=== PATIENT | female | born 1930 | race Caucasian/White ===

== ENCOUNTER 2016-10-03 12:36 | Observation (INO) | payer OTHER, MEDICARE ==
[~2016-10-03] VITALS: Ht 154.9 cm; Wt 59.0 kg
[~2016-10-03 12:36] MED LIST: ALDACTONE25 MG PO; ELIQUIS2.5 M1 PO; METOPROLOL TART25 M1 PO; NIFEDIPINE ER60 M2 PO
--- NOTE | 2016-10-03 12:44 | NUR ---
85 Y/O FEMALE C/O MID STERNAL / L SIDED CHEST PAIN SINCE YESTERDAY; STATES SHE DOES NOT FEEL THE PAIN BREATHING NORMALLY HOWEVER FEELS BAD IF SHE "TAKES A DEEP BREATH". DENIES SOB. DENIES N/V/D. DENIES DIAPHORESIS. RECENTLY NOTICED COUGH WELL WITH WHITE PHLEGM. EKG AND BLOOD DRAW IN PROGRESS
[2016-10-03 13:00] LABS: ABSOLUTE BASOPHIL COUNT 0.2 /CUMM (0.0-0.2); ABSOLUTE EOSINOPHIL COUNT 0.1 /CUMM (0.0-0.7); ABSOLUTE GRANULOCYTE CT 8.6 /CUMM (1.4-6.5); ABSOLUTE LYMPH COUNT 1.8 /CUMM (1.2-3.4); ABSOLUTE MONOCYTE COUNT 0.8 /CUMM (0.10-0.60); BASOPHIL % 1.3 % (0.0-2.0); EOSINOPHIL % 0.7 % (0-5); HEMATOCRIT 31.5 % (37-47); MEAN CORPUSCULAR HGB 31.2 PG (27.0-31.0); MEAN CORPUSCULAR HGB CONC 33.8 G/DL (33.0-37.0); MEAN CORPUSCULAR VOLUME 92.4 FL (81.0-99.0); MEAN PLATELET VOLUME 8.9 FL (7.4-10.4); PLATELET COUNT 259 /CUMM (130-400); RBC DISTRIBUTION WIDTH 14.9 % (11.5-14.5); RED BLOOD CELL CT 3.41 /CUMM (4.20-5.40); WHITE BLOOD CELL COUNT 11.5 /CUMM (4.8-10.8)
--- NOTE | 2016-10-03 13:08 | ED CARDIAC/CP/PALPITATIONS ---
History of Present Illness General Chief Complaint: Chest Pain Stated Complaint: PER DAUGHTER CP INTO L ARM WHEN TAKING DEEP BREATH Source: patient, family, old records Exam Limitations: no limitations Vital Signs & Intake/Output Vital Signs & Intake/Output Vital Signs Date Time Temp Pulse Resp B/P B/P Pulse O2 O2 Flow FiO2 Mean Ox Delivery Rate 10/03 1638 96.9 77 15 151/74 99 Room Air Room Air 10/03 1441 69 15 116/56 95 Room Air Room Air 10/03 1430 Room Air Room Air 10/03 1242 98.2 84 16 124/64 95 Room Air Allergies Coded Allergies: Sulfa (Sulfonamide Antibiotics) (Severe, SWELLING 10/03/16) diphenhydramine (From BENADRYL) (Severe, MAKES CRAZY 10/03/16) hydromorphone (From DILAUDID) (Severe, CONFUSSION 10/03/16) morphine (Severe, SYNCOPE 10/03/16) oxycodone (From PERCOCET) (Severe, SWELLING 10/03/16) JOSE Inhibitors (UNKNOWN 10/03/16) Uncoded Allergies: ANGIOTENSIN-2 (Severe, SWELLING 01/09/16) Reconcile Medications Apixaban (Eliquis) 2.5 MG TABLET 1 TAB PO BID BLOOD THINNER (Reported) Aspirin (Aspirin*) 81 MG TAB.CHEW 1 TAB PO DAILY HEART HEALTH (Reported) Docusate Sodium (Stool Softener) 250 MG CAPSULE 1 TAB PO BID STOOL SOFTENER ( Reported) Metoprolol Tartrate 25 MG TABLET 1 TAB PO BID HEART (Reported) Nifedipine (Nifedipine ER) 60 MG TAB.ER.24 1 TAB PO DAILY HEART (Reported) Sotalol HCl (Sotalol) 80 MG TABLET 1 TAB PO BID HEART (Reported) Spironolactone (Aldactone) 25 MG TABLET 1 TAB PO DAILY WATER RETENTION ( Reported) Temazepam 15 MG CAPSULE 1 CAP PO QPM SLEEP (Reported) Triage Note: 85 Y/O FEMALE C/O MID STERNAL / L SIDED CHEST PAIN SINCE YESTERDAY; STATES SHE DOES NOT FEEL THE PAIN BREATHING NORMALLY HOWEVER FEELS BAD IF SHE "TAKES A DEEP BREATH". DENIES SOB. DENIES N/V/D. DENIES DIAPHORESIS. RECENTLY NOTICED COUGH WELL WITH WHITE PHLEGM. EKG AND BLOOD DRAW IN PROGRESS Triage Nurses Notes Reviewed? 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 Symptoms came out while at rest. No history of similar episodes in the past she reports a cough productive of white phlegm for the past several months. No hemoptysis she is on Elliquis which she has been compliant with. She denies any abdominal pain nausea vomiting diarrhea symptoms are worse with deep inspiration cough sneezing laughing and exertion. (DEDE BOWDEN) Past History Travel History Traveled to [place] past 21 day No Medical History Any Pertinent Medical History? 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 No (DEDE BOWDEN) Review of Systems Review of Systems Constitutional: Reports: see HPI. All Other Systems: Reviewed and Negative Comments Review of systems: See HPI, All other systems negative. Constitutional, no chills no fever, no malaise HEENT: No visual changes no sore throat no congestion, no ear pain Cardiovascular: chest pain , no palpitation Skin: no rashes, no change in skin Respiratory: dyspnea no cough no sputum no hemoptysis GI: No nausea no vomiting, no diarrhea, no bloating/constipation : No dysuria No hematuria, no frequency Muscle skeletal: No joint pain, no back pain, no neck pain, Neurologic: No numbness no headache Psych: No stress Heme/endocrine: No bruising Immunology: No lymphadenopathy (DEDE BOWDEN) Physical Exam Physical Exam General Appearance: well developed/nourished, alert, awake Cardiovascular: regular rate/rhythm Comments: Well-developed well-nourished person in no acute distress HEENT: Normal EENT exam; PERRL, EOMI, HEAD is atraumatic. moist mucous membranes. Neck: Supple, no lymphadenopathy, normal range of motion Back: Nontender, no CVA tenderness. Full range of motion Cardiovascular: Regular rate and rhythms murmurs rubs or gallops, normal JVP Respiratory: Chest tender.There were no bony deformities, no asymmetry. No respiratory distress. Patient speaking in full complete sentences. Breath sounds clear to auscultation bilaterally: NO W/R/R Abdomen: Soft, nontender Extremity: No edema, full range of motion of extremities Neuro: Alert oriented x3, motor sensory normal,There were no obvious focal neurologic abnormalities. Skin: No appreciable rash on exposed skin, skin is warm and dry. Psych: Mood and affect is normal, memory and judgment is normal. Core Measures ACS in differential dx? Yes Severe Sepsis Present: No Septic Shock Present: No (ALICIA WOLF,DEDE) Progress Differential Diagnosis: AMI, atrial fibrillation, cholecystitis, CHF/pulm edema, costochondritis, hyperkalemia, musculoskeletal pain, myocarditis, pancreatitis, pericarditis, pneumothorax, pulmonary embolism, unstable angina Plan of Care: Orders Procedure Date/time Status CBC WITHOUT DIFFERENTIAL 10/04 0600 Active BASIC ELECTROLYTES PLUS BUN&CR 10/04 0600 Active TROPONIN LEVEL 10/04 0100 Active EKG 10/04 0100 Active Regular Diet 10/03 D Active TROPONIN LEVEL 10/03 1900 Active EKG 10/03 1900 Active ECHOCARDIOGRAM 10/03 1625 Active TROPONIN LEVEL 10/03 1600 Complete EKG 10/03 1600 Active Pathway - chart 10/03 1540 Active Patient Data 10/03 1540 Active Patient Data 10/03 1531 Active OXYGEN SETUP (GEN) 10/03 1528 Active Saline Lock 10/[address] in observation 10/03 1528 Active Vital Signs 10/03 1528 Active Activity/Ambulation 10/03 1528 Active Code Status 10/03 1528 Active Intake & Output 10/03 1429 Active Add-on Test (ER Only) 10/03 1323 Active Telemetry/Customer Service Analyst 10/03 1323 Active PARTIAL THROMBOPLASTIN TIME 10/03 1252 Complete PROTHROMBIN TIME 10/03 1252 Complete D-DIMER 10/03 1252 Complete TROPONIN LEVEL 10/03 1238 Complete COMPREHENSIVE METABOLIC PANEL 10/03 1238 Complete CBC WITHOUT DIFFERENTIAL 10/03 1238 Complete EKG 10/03 1238 Active Pathway - chart 10/03 UNK Active House Staff 10/03 UNK Active VTE Mechanical Prophylaxis 10/03 UNK Active Telemetry/Customer Service Analyst 10/03 K Active CASE MANAGEMENT CONSULT 10/03 UNK Active Current Medications Sig/Amaury Start time Last Medication Dose Stop Time Status Admin Nifedipine 60 MG DAILY 10/04 1000 AC (Procardia XL) Spironolactone 25 MG DAILY 10/04 1000 AC (Aldactone) Apixaban 2.5 MG BID 10/03 2200 AC (Eliquis) Docusate Sodium 200 MG BID 10/03 220 AC (Colace) Sotalol HCl 80 MG BID 10/03 2200 AC (Betapace) Temazepam 15 MG QPM 10/03 220 AC (Restoril) Aspirin 81 MG DAILY 10/03 1626 AC 10/03 (Aspirin) 1657 Acetaminophen 650 MG Q6P PRN 10/03 1545 AC (Tylenol) Acetaminophen 1,000 MG Q6P PRN 10/03 1545 AC (Ofirmev) Laboratory Tests 10/03/16 1551: Troponin I < 0.01 10/03/16 1252: Anion Gap 12, Estimated GFR 60, BUN/Creatinine Ratio 20.0, Glucose 138 H, Calcium 9.4, Total Bilirubin 0.5, AST 20, ALT 21, Alkaline Phosphatase 75, Troponin I < 0.01, Total Protein 6.8, Albumin 3.9, Globulin 2.9, Albumin/ Globulin Ratio 1.3, PT 13.5 H, INR 1.29 H, APTT 33, D-Dimer High Sensitivty 298 H, CBC w Diff NO MAN DIFF REQ, RBC 3.41 L, MCV 92.4, MCH 31.2 H, RDW 14.9 H, MPV 8.9, Gran % 75.0, Lymphocytes % 15.7 L, Monocytes % 7.3, Eosinophils % 0.7, Basophils % 1.3, Absolute Granulocytes 8.6 H, Absolute Lymphocytes 1.8, Absolute Monocytes 0.8 H, Absolute Eosinophils 0.1, Absolute Basophils 0.2, PUBS MCHC 33.8 Labs ordered old records reviewed CAT scan ordered case discussed with Dr. CARMICHAEL Discussed with patient and her daughter the fall for results incidental findings. Discussed with Dr. 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 RYNE ALEJANDRO IN OBS (ALICIA WOLF,DEDE) Diagnostic Imaging: Viewed by Me: CT Scan. Discussed w/RAD: CT Scan. Radiology Impression: PATIENT: GODWIN GOMEZ PRESENT AGE: 85 PATIENT ACCOUNT NO: [id number] : 31 LOCATION: [facility] ORDERING PHYSICIAN: DEDE WOLF SERVICE DATE: 10/03/166344 EXAM TYPE: CAT - CTA CHEST-PULMONARY EMBOLISM EXAMINATION: CT ANGIOGRAM OF THE CHEST WITH AND WITHOUT CONTRAST (CT PULMONARY ANGIOGRAM FOR PE) CLINICAL INFORMATION: Reason for Study:
Presumptive Dx: RO PE
Signs Symptoms: PLEURITIC CP
COMPARISON: Chest CT 08/03/2007 TECHNIQUE: Prior to contrast administration, noncontrast localization images were obtained. Subsequently, multidetector volumetric imaging was performed from the thoracic inlet to below the diaphragms following the administration of 94 mL Optiray 350 intravenous contrast. No contrast reaction reported. Sagittal, coronal, and MIP oblique sagittal reformatted images were obtained on the CT workstation, uploaded to PACS, and reviewed. Total exam dose-length product 222 mGy-cm. FINDINGS: QUALITY OF STUDY/ CONTRAST BOLUS: Satisfactory PULMONARY ARTERIES: No central or segmental pulmonary emboli. THORACIC AORTA: Mild to moderate atherosclerotic changes without aneurysm or dissection. LUNG: There is a discoid focus of probable atelectasis in the superior segment of the right lower lobe posterior medially new from the 2007 exam. Similar less prominent peripheral foci are identified along the minor and major fissures centrally on the right. Mild underlying COPD changes are suspected with somewhat of a mosaic attenuation pattern suggesting underlying small airway disease. No suspicious appearing pulmonary nodules are seen. PLEURA: No pleural effusion or pneumothorax. MEDIASTINUM: There is no mediastinal or hilar adenopathy. The heart contains dual pacer leads on the right with a left-sided generator. There are TAVR changes as well. CHEST WALL/ AXILLA: Unremarkable. OSSEOUS STRUCTURES: There is a severe L1 compression deformity which is likely present on previous portable chest x-ray 01/09/2016, however is new compared with the previous CT from 2007. Otherwise no focal osseous lesions are seen. UPPER ABDOMEN: Unremarkable. IMPRESSION: 1. No evidence of pulmonary emboli. 2. 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 3. Findings most consistent with subsegmental atelectasis most notably involving the superior segment of the left lower lobe. 4. T1 compression deformity is likely stable since 01/09/2016. Otherwise age indeterminate. VTE: Negative for pulmonary embolism. DICTATED BY: FELISA GARCIA MD DATE/TIME DICTATED:10/03/161432 HOSPITALIST PROGRAM DIRECTOR:QUEENIE DATE/TIME TRANSCRIBED:10/03/161432 CONFIDENTIAL, DO NOT COPY WITHOUT APPROPRIATE AUTHORIZATION. <Electronically signed in Other Vendor System> SIGNED BY: FELISA GARCIA MD 10/03/16 1450 Initial ED EKG: PACED AT 70,NO ACUTE ST SEG CHANGES NORMAL AXIS Prior EKG: unchanged Rhythm Strip: PACED RHYTHM (DEDE BOWDEN) Departure Departure Time of Disposition: 1529 Disposition: STILL A PATIENT Condition: Stable Clinical Impression Primary Impression: Chest pain Referrals: DELFINA FORDE MD (PCP/Family) Departure Forms: Customer Survey General Discharge Information Observation Note Spoke With: THOMAS MICHELE MD [facility] Patient In: Non-ED OBS Care Area Rationale for Observation: My rational for observation is as follows patient has extensive cardiac history given presentation of symptoms continuous telemetry monitoring and repeat troponins trend labs cardiology consult premature discharge would BE medically harmful. (DEDE BOWDEN) PA/INFORMATION SECURITY ANALYST Co-Sign Statement Statement: ED Attending supervision documentation- x I saw and evaluated the patient. I have also reviewed all the pertinent lab results and diagnostic results. I agree with the findings and the plan of care as documented in the PA's/INFORMATION SECURITY ANALYST's documentation. [] I have reviewed the ED Record and agree with the PA's/INFORMATION SECURITY ANALYST's documentation. [] Additions or exceptions (if any) to the PAs/INFORMATION SECURITY ANALYST's note and plan are summarized below: [] (AMOL GARVEY,BETH) Critical Care Note Critical Care Note Critical Care Time: non-applicable (DEDE BOWDEN)
[2016-10-03 13:40] LABS: PT 13.5 SEC (9.4-12.5); PTT 33 SEC (25-37)
--- NOTE | 2016-10-03 14:15 | NUR ---
IV EST TO R FOREARM FOR CTA.
[2016-10-03] MEDS ORDERED: SOTALOL80 M1 PO (14:42)
[2016-10-03] MEDS ORDERED: STOOL SOFTENER250 M1 PO (14:43)
[2016-10-03] MEDS ORDERED: TEMAZEPAM15 M1 PO (14:43)
[2016-10-03] MEDS ORDERED: ASPIRIN81 M4 PO (14:44)
--- NOTE | 2016-10-03 14:44 | NUR ---
PT RESTING ON STRETCHER, NO ACUTE DISTRESS NOTED. INFORMED WAITING FOR CAT SCAN RESULTS TO COME BACK. WILL CONTINUE TO MONITOR
--- NOTE | 2016-10-03 14:50 | CT SCAN REPORT ---
EXAMINATION: CT ANGIOGRAM OF THE CHEST WITH AND WITHOUT CONTRAST (CT PULMONARY ANGIOGRAM FOR PE) CLINICAL INFORMATION: Reason for Study:
Presumptive Dx: RO PE
Signs Symptoms: PLEURITIC CP
COMPARISON: Chest CT 08/03/2007 TECHNIQUE: Prior to contrast administration, noncontrast localization images were obtained. Subsequently, multidetector volumetric imaging was performed from the thoracic inlet to below the diaphragms following the administration of 94 mL Optiray 350 intravenous contrast. No contrast reaction reported. Sagittal, coronal, and MIP oblique sagittal reformatted images were obtained on the CT workstation, uploaded to PACS, and reviewed. Total exam dose-length product 222 mGy-cm. FINDINGS: QUALITY OF STUDY/CONTRAST BOLUS: Satisfactory PULMONARY ARTERIES: No central or segmental pulmonary emboli. THORACIC AORTA: Mild to moderate atherosclerotic changes without aneurysm or dissection. LUNG: There is a discoid focus of probable atelectasis in the superior segment of the right lower lobe posterior medially new from the 2007 exam. Similar less prominent peripheral foci are identified along the minor and major fissures centrally on the right. Mild underlying COPD changes are suspected with somewhat of a mosaic attenuation pattern suggesting underlying small airway disease. No suspicious appearing pulmonary nodules are seen. PLEURA: No pleural effusion or pneumothorax. MEDIASTINUM: There is no mediastinal or hilar adenopathy. The heart contains dual pacer leads on the right with a left-sided generator. There are TAVR changes as well. CHEST WALL/AXILLA: Unremarkable. OSSEOUS STRUCTURES: There is a severe L1 compression deformity which is likely present on previous portable chest x-ray 01/09/2016, however is new compared with the previous CT from 2007. Otherwise no focal osseous lesions are seen. UPPER ABDOMEN: Unremarkable. IMPRESSION: 1. No evidence of pulmonary emboli. 2. 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 3. Findings most consistent with subsegmental atelectasis most notably involving the superior segment of the left lower lobe. 4. T1 compression deformity is likely stable since 01/09/2016. Otherwise age indeterminate. VTE: Negative for pulmonary embolism.
--- NOTE | 2016-10-03 15:37 | History & Physical ---
KIMBERLY FREED 10/03/16 1537: General Information and HPI History of Present Illness: Ms. 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 Her symptoms was associated with dizziness and chills. Patient also complains of a persistent cough since 05/2016 with white sputum production. She denies fever, nausea, vomiting, headache, palpitations, SOB or any previous episodes of CP. Patient also complains of hard stool, she takes a GI cocktail (prune juice, butter, +/-miralax) to soften stool. Patient states her skiff operator is Dr. Bejarano and PCP Dr. Braulio Asencio. ED vitals:BP 124/64 HR 84 O295 on RA ED labs: wbc 11.5, hgb 10.6, HCT 31.5, Na 133, Gluc 138, D-dimer 298, Trop neg. Allergies/Medications Allergies: Coded Allergies: Sulfa (Sulfonamide Antibiotics) (Severe, SWELLING 10/03/16) diphenhydramine (From BENADRYL) (Severe, MAKES CRAZY 10/03/16) hydromorphone (From DILAUDID) (Severe, CONFUSSION 10/03/16) morphine (Severe, SYNCOPE 10/03/16) oxycodone (From PERCOCET) (Severe, SWELLING 10/03/16) JOSE Inhibitors (UNKNOWN 10/03/16) Uncoded Allergies: ANGIOTENSIN-2 (Severe, SWELLING 01/09/16) Home Med list Apixaban (Eliquis) 2.5 MG TABLET 1 TAB PO BID BLOOD THINNER (Reported) Aspirin (Aspirin*) 81 MG TAB.CHEW 1 TAB PO DAILY HEART HEALTH (Reported) Docusate Sodium (Stool Softener) 250 MG CAPSULE 1 TAB PO BID STOOL SOFTENER ( Reported) Metoprolol Tartrate 25 MG TABLET 1 TAB PO BID HEART (Reported) Nifedipine (Nifedipine ER) 60 MG TAB.ER.24 1 TAB PO DAILY HEART (Reported) Sotalol HCl (Sotalol) 80 MG TABLET 1 TAB PO BID HEART (Reported) Spironolactone (Aldactone) 25 MG TABLET 1 TAB PO DAILY WATER RETENTION ( Reported) Temazepam 15 MG CAPSULE 1 CAP PO QPM SLEEP (Reported) Past History Travel History Traveled to [place] past 21 day No Medical History Neurological: NONE EENT: NONE Cardiovascular: AFIB, hypertension, pacemaker sleep apnea AORTIC VALVE REPLACEMENT Respiratory: NONE Gastrointestinal: NONE Hepatic: NONE Renal: NONE Musculoskeletal: NONE Psychiatric: NONE Endocrine: NONE Blood Disorders: NONE Cancer(s): NONE ADJUNCT INSTRUCTOR/Reproductive: NONE Surgical History Surgical History: appendectomy, hysterectomy, avr, pacemaker, Diverticular surgery (08/2016), Femoral screw (2015), Back surgery Past Family/Social History Psychosocial History ETOH Use: denies use Illicit Drug Use: denies illicit drug use Review of Systems Review of Systems Constitutional: Reports: see HPI. Exam & Diagnostic Data Last 24 Hrs of Vital Signs/I&O Vital Signs Date Time Temp Pulse Resp B/P B/P Pulse O2 O2 Flow FiO2 Mean Ox Delivery Rate 10/04 0000 96 Nasal 2.0L Cannula 10/03 2200 98.3 72 20 126/60 97 Room Air 10/03 2000 97 Room Air 10/03 1857 97.4 69 15 141/63 96 Room Air Room Air 10/03 1638 96.9 77 15 151/74 99 Room Air Room Air 10/03 1441 69 15 116/56 95 Room Air Room Air 10/03 1430 Room Air Room Air 10/03 1242 98.2 84 16 124/64 95 Room Air Intake & Output 10/04 0800 10/04 0000 10/03 1600 Intake Total 200 260 0 Output Total 400 400 Balance -200 -140 0 Intake, Oral 200 260 0 Number 0 Bowel Movements Output, Urine 400 400 Patient 130 lb 130 lb Weight Weight Reported by Patient Measurement Method Physical Exam General Appearance Alert, Oriented X3, Cooperative, No Acute Distress HEENT Atraumatic, PERRLA Neck Supple, No JVD Cardiovascular Normal S1, Normal S2, Left side chest pain on palpation Lungs Clear to Auscultation Abdomen Normal Bowel Sounds, Soft, Mild tenderness on palpation at hysterectomy incision site Extremities No Cyanosis, No Edema Last 24 Hrs of Labs/Luis Manuel: Laboratory Tests 10/04/16 0130: Troponin I < 0.01 10/03/16 1848: Troponin I < 0.01 10/03/16 1551: Troponin I < 0.01 10/03/16 1252: Anion Gap 12, Estimated GFR 60, BUN/Creatinine Ratio 20.0, Glucose 138 H, Calcium 9.4, Total Bilirubin 0.5, AST 20, ALT 21, Alkaline Phosphatase 75, Troponin I < 0.01, Total Protein 6.8, Albumin 3.9, Globulin 2.9, Albumin/ Globulin Ratio 1.3, PT 13.5 H, INR 1.29 H, APTT 33, D-Dimer High Sensitivty 298 H, CBC w Diff NO MAN DIFF REQ, RBC 3.41 L, MCV 92.4, MCH 31.2 H, RDW 14.9 H, MPV 8.9, Gran % 75.0, Lymphocytes % 15.7 L, Monocytes % 7.3, Eosinophils % 0.7, Basophils % 1.3, Absolute Granulocytes 8.6 H, Absolute Lymphocytes 1.8, Absolute Monocytes 0.8 H, Absolute Eosinophils 0.1, Absolute Basophils 0.2, PUBS MCHC 33.8 Diagnostic Data EKG Results Atrial paced complexes, ICVD, HR 79 Other Results CTA CHEST10/03/16-1335 IMPRESSION: 1. No evidence of pulmonary emboli. 2. 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 3. Findings most consistent with subsegmental atelectasis most notably involving the superior segment of the left lower lobe. 4. T1 compression deformity is likely stable since 01/09/2016. Otherwise age indeterminate. VTE: Negative for pulmonary embolism. Assessment/Plan Assessment: A: Ms. 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 Her symptoms was associated with dizziness and chills. Patient also complains of a persistent cough since 05/2016 with white sputum production. She denies fever, nausea, vomiting, headache, palpitations, SOB or any previous episodes of CP. P: 1. Chest pain musculoskeletal on presentation * 24h OBS * Serial TROP/ECG to rule out ACS * Dr. Bejarano consult 2. A-fib * Start home meds Eliquis 2.5mg BID, sotalol 80mg BID 3. HTN/HLD * Start home meds Nifedipine 90mg ER, ASA 81, Spirinolactone 25mg 4. CHF * Start home meds DVT prophylaxis-Eliquis FULL CODE As Ranked By This Provider Problem List: 1. Chest pain Core Measures/Miscellaneous Acute Coronary Syndrome ACS Diagnosis: No Cerebrovascular Accident CVA/TIA Diagnosis: No Congestive Heart Failure CHF Diagnosis: No VTE (View Protocol) VTE Risk Factors: Age > 40 No Mech VTE prophylaxis d/t: No contraindications No VTE Pharm Prophylaxis d/t: No contraindications VTE Diagnosis: No VTE Type: NONE VTE Confirmed by (Test): NONE Sepsis (View Protocol) Severe Sepsis Present: No Septic Shock Septic Shock Present: No Miscellaneous Documentation Attending Case Discussed With: THOMAS MICHELE MD Primary Care Physician: BRAULIO ASENCIO MD Patient sees these Specialists Jake Bejarano MD Level of Patient Care: Telemetry YANG VALIENTE 10/03/16 1831: Resident Review Statement Resident Statement: examined this patient, discussed with commander internal affairs, agreed with commander internal affairs Other Findings: Patient is a 85-year-old woman with past medical history significant for atrial fibrillation on elliquis, aortic valve replacement in May 2015 complicated with pericardial effusion, history of hypertension, history of heart failure with reduced ejection fraction, history of primary parathyroidism, history of internal hemorrhoids, recently had a surgery of Meckel's diverticulum in August 2016 presented to the ED for evaluation of constant chest discomfort at rest. Patient lives in [place], she has been staying with her daughter since August 2016 after Meckel's diverticulum surgery. The chest discomfort started at rest while she was she was watching television, it was sharp in character 8/10 in severity constant, aggravated with deep breaths without any alleviating factors. The chest discomfort was not associated with any shortness of breath palpitations denies any nausea vomiting or any sweating. Reported chills without any fever. Patient has been having this productive cough since May 2016, denied any worsening she was told by her primary care physician that cough could be seasonal. As mentioned above patient had Meckel's diverticulum surgery in August 2016, tolerated the procedure well, still reports some constipation, without any abdominal discomfort. Vitals on admission: Temperature 98.2, pulse 84, respiratory rate 16, blood pressure 124/664 on room air On examination General Appearance: Alert and oriented 3 Head: atraumatic, normal appearance Eyes:Bilateral: normal appearance, PERRL, EOMI. Ears, Nose, Throat: normal pharynx, normal ENT inspection, hearing grossly normal Lung examination: Lungs clear to was collision bilaterally Cardiovascular: Regular rate and rhythm, chest pain reproducible on palpation Gastrointestinal: normal bowel sounds, soft, non-tender, no organomegaly Back: normal inspection, normal range of motion, no vertebral tenderness Extremities: normal inspection, normal capillary refill, normal range of motion, no edema Neuro examination grossly intact . Pertinent labs on admission slight leukocytosis 11 with H&H low at 10.6/31.5 hyponatremia 133 elevated d-dimer 298 CTA negative for pulmonary embolism Assessment and plan: Patient is a 85-year-old woman with past medical history significant for atrial fibrillation on elliquis, aortic valve replacement in May 2015 complicated with pericardial effusion, history of hypertension, history of heart failure with reduced ejection fraction, history of primary parathyroidism, history of internal hemorrhoids, recently had a surgery of Meckel's diverticulum in August 2016 presented to the ED for evaluation of constant chest discomfort at rest. Problem list: Atypical chest discomfort(musculoskeletal)-less likely ACS History of hypertension hyperlipidemia History of CHF plan: Atypical chest discomfort(musculoskeletal)-less likely ACS * Will keep the patient in observation for 24 hours * 2 sets of troponin are negative without any STT changes, less likely the chest pain is cardiac in nature(reproducible as well, looks like musculoskeletal ) * We will observe the patient for any arrhythmias. * Cardiovascular consult Dr. Bejarano has been obtained as per recommendations we'll discharge the patient in the morning if remains pain-free without any evidence of arrhythmias. History of A. fib * On any home dose of Elliquis. History of hypertension hyperlipidemia * Continue medications. History of CHF * Continue medications DVT prophylaxis with elliquis' Mild to moderate pain controlled with Tylenol Patient is full code THOMAS MICHELE MD 10/04/16 1010: Attending MD Review Statement Attending Statement Attending MD Statement: examined this patient, discuss w/resident/PA/SENIOR INTERNAL AUDITOR, agreed w/resident/PA/SENIOR INTERNAL AUDITOR, reviewed EMR data (avail) Attending Assessment/Plan: 85F PMH AVR with post-operative pericardial effusion s/p pericardiocentesis x3 1 year ago, Meckel's diverticulum 2 months ago s/p resection, atrial fibrillation s/p PPM, HTN presenting with acute onset of left sided chest pain, non-radiating , occured at rest, not worse with exertion, associated with dyspnea. No prior episodes of chest pain, no recent stress or exertion. EKG shows atrially paced rhythm with no ST-T changes, troponin negative. Plan - Observation in telemetry - Serial troponin and EKG - Echocardiogram - Cardiology consult - Continue home medications - DVT PPx
--- NOTE | 2016-10-03 15:52 | NUR ---
2ND TROP AND EKG SENT
--- NOTE | 2016-10-03 16:31 | PN- Student ---
Subjective Subjective: CC: chest pain HPI: Source of of information is patient. Mrs. Hernandez is an 85 year old female with PMH of CHF, HTN, Afib, Stage 3 CKD, internal hemorrhoids and TAVR (bovine valve) in 2005 with pacemaker placement, and pericardial effusion c/o chest pain. The pain began yesterday. It is substernal and radiates to the left sternal border. She describes the pain as a sharp and occurs on inspiration. She rates the pain an 8/10. It has remained consistent with inspiration since yesterday. She also has a cough that has come and go since 05/2016. It is productive of white phlegm. She has been experiencing some dizziness and chills. Patient denies fever, nausea, sweats, and headaches. She has not had any previous episodes of chest pain. PMH: HTN CHF Afib Stage 3 CKD PSH: Meckel's diverticulectomy with appendectomy 08/2016 TAVR: 05/2015 Pericaditial effusion, drained 3x 05/2015 Pacemaker 05/2015 SH: Tobacco: Denies smoking. ETOH Use: Drinks very infrequently (few times/year). Illicit Drug Use: Denies drug use. Allergies: Sulfa (Sulfonamide Antibiotics) (Severe, SWELLING 10/03/16) diphenhydramine (From BENADRYL) (Severe, MAKES CRAZY 10/03/16) hydromorphone (From DILAUDID) (Severe, CONFUSSION 10/03/16) morphine (Severe, SYNCOPE 10/03/16) oxycodone (From PERCOCET) (Severe, SWELLING 10/03/16) Regis Inhibitors Dilaudid Medications: Apixaban (Eliquis) 2.5 MG TABLET 1 TAB PO BID BLOOD THINNER (Reported) Aspirin (Aspirin*) 81 MG TAB.CHEW 1 TAB PO DAILY HEART HEALTH (Reported) Docusate Sodium (Stool Softener) 250 MG CAPSULE 1 TAB PO BID STOOL SOFTENER ( Reported) Nifedipine (Nifedipine ER) 90 MG TAB.ER.24 1 TAB PO DAILY HEART (Reported) Sotalol HCl (Sotalol) 80 MG TABLET 1 TAB PO BID HEART (Reported) Spironolactone (Aldactone) 25 MG TABLET 1 TAB PO DAILY WATER RETENTION ( Reported) Temazepam 15 MG CAPSULE 1 CAP PO QPM SLEEP (Reported) Objective Objective: Physical Exam: General: NAD HEENT: NCAT, PERRL Cardiac: normal s1s2 Chest: pain to palpation on left sternal border Pulm: Clear to auscultation, no wheezing/rhonchi/rales Abdomen: appropriate tenderness around scars (recent surgery) Neuro: Alert and oriented x3 Extremities: No edema, no cyanosis, no clubbing Imaging: CTA: IMPRESSION: 1. No evidence of pulmonary emboli. 2. 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 3. Findings most consistent with subsegmental atelectasis most notably involving the superior segment of the left lower lobe. 4. T1 compression deformity is likely stable since 01/09/2016. Otherwise age indeterminate. Vital Signs Date Time Temp Pulse Resp B/P B/P Pulse O2 O2 Flow FiO2 Mean Ox Delivery Rate 10/03 1638 96.9 77 15 151/74 99 Room Air Room Air 10/03 1441 69 15 116/56 95 Room Air Room Air 10/03 1430 Room Air Room Air 10/03 1242 98.2 84 16 124/64 95 Room Air Intake & Output 10/03 1600 10/03 0800 10/03 0000 Intake Total 0 Output Total Balance 0 Intake, Oral 0 Patient 130 lb Weight Weight Reported by Patient Measurement Method Results Results: Laboratory Tests 10/03/16 1551: Troponin I < 0.01 10/03/16 1252: Anion Gap 12, Estimated GFR 60, BUN/Creatinine Ratio 20.0, Glucose 138 H, Calcium 9.4, Total Bilirubin 0.5, AST 20, ALT 21, Alkaline Phosphatase 75, Troponin I < 0.01, Total Protein 6.8, Albumin 3.9, Globulin 2.9, Albumin/ Globulin Ratio 1.3, PT 13.5 H, INR 1.29 H, APTT 33, D-Dimer High Sensitivty 298 H, CBC w Diff NO MAN DIFF REQ, RBC 3.41 L, MCV 92.4, MCH 31.2 H, RDW 14.9 H, MPV 8.9, Gran % 75.0, Lymphocytes % 15.7 L, Monocytes % 7.3, Eosinophils % 0.7, Basophils % 1.3, Absolute Granulocytes 8.6 H, Absolute Lymphocytes 1.8, Absolute Monocytes 0.8 H, Absolute Eosinophils 0.1, Absolute Basophils 0.2, PUBS MCHC 33.8 Assessment/Plan Assessment: Assessment: Mrs. Hernandez is an 85 year old female with PMH of CHF, HTN, Afib, and TAVR in 05/2015 who presents with 1 day history of chest pain on inspiration. CTA showed no evidence of PE and first troponin draw was negative. Plan: #1 chest pain Admit to telemetry for 24 hour observation Repeat ECHO Consult cardiology Serial Troponins/EKGs Possible heparin drip Monitor vitals #2 cough Of note she was treated for an upper respiratory infection 05/2016. This took care of her fever but she's had a cough productive of white phlegm come and go since then. She also gets a hoarse voice. #3: Afib continue nifedipine 60 mg, sotalol 80 mg BID, metoprolol 25 mg BID, apixaban 2.5 mg BID #4: HTN continue nifedipine 60 mg, sotalol 80 mg BID, metoprolol 25 mg BID #5: CHF continue aspirin 81 mg, spironolactone 25 mg #6: Constipation continue docusate
--- NOTE | 2016-10-03 16:39 | NUR ---
PT PROVIDED DINNER TRAY.
--- NOTE | 2016-10-03 17:31 | Cons- Cardiology ---
General Information and HPI Consulting Request Date of Consult: 10/03/16 Requested By: THOMAS MICHELE MD Reason for Consult: Chest pain in a patient with complicated heart disease. Source of Information: patient, old records Exam Limitations: no limitations History of Present Illness: Ebony Hernandez is a complicated 85-year-old female who has a lot of medical issues. She was in and out of the hospital from April through August 2015 in [place]. She started out apparently with severe pneumonia, had atrial fibrillation for an unknown period of time and was on amiodarone for some time, but this was discontinued. She at some point had an atrial fibrillation ablation procedure also. She has underlying hypertension. She had severe aortic stenosis documented in April and May 2015, and eventually had a transcatheter aortic valve replacement, which was done around the end of May 2015. This apparently was complicated by bradycardia, and she had a pacemaker implanted on 06/24/2015. This is a [employer] Advisa, MRI conditional device. According to the device, she was in persistent atrial fibrillation throughout much of June 2015, but then subsequently she has been in sinus rhythm with minimal atrial fibrillation. Her TAVR was apparently complicated also by pericardial and/or pleural effusions, and she had pericardial window, according to her daughter, with residual wound in the subxiphoid area, She also fell and broke her hip after her TAVR and had that repaired in July 2015. She remains on Eliquis low dose given for her previous atrial fibrillation. She is no longer on amiodarone. She is on nifedipine for hypertension, spironolactone, and metoprolol. Ebony was doing well until 01/09/2016 when she presented to [facility] emergency room complaining of palpitations and rapid heart beat. Her EKG showed a tachycardia with a rate of 111; the underlying mechanism is uncertain, possibly an atrial tachycardia or an atypical atrial flutter. According to her device which I interrogated she showed a spike of atrial fibrillation at that time, so this was likely an atrial arrhythmia. She was advised to double up on her metoprolol to 50 mg twice a day. Her chest x-ray did not show any congestive heart failure at that time. At the time of 2015 visit, she was doing okay. She was not in atrial fibrillation, and her blood pressure was good. Subsequently, she continued to do well. She was getting stronger and actually is wanted to return to [place] in February. She remained on Eliquis 2.5 mg twice a day, metoprolol 50 mg twice a day, nifedipine 60 mg daily, Aldactone 50 mg daily, and temazepam as needed. She had an echo in January 2106 which showed good LV function and good function of her new aortic valve. Ebony actually did go to [place] where she spent most of the winter. 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 We don't have those records at this point. She states that she recovered from this pretty well and had no problems traveling back to [place]. She was then doing well until yesterday when she began noticing a vague heaviness in the chest and then a very brief sharp chest pain when she took a deep breath. This occurred several times and finally she came here today for this complaint. She denies any exertional chest pain or shortness of breath. So far the workup has been negative with no significant EKG changes and 2 negative troponins. Allergies/Medications Allergies: Coded Allergies: Sulfa (Sulfonamide Antibiotics) (Severe, SWELLING 10/03/16) diphenhydramine (From BENADRYL) (Severe, MAKES CRAZY 10/03/16) hydromorphone (From DILAUDID) (Severe, CONFUSSION 10/03/16) morphine (Severe, SYNCOPE 10/03/16) oxycodone (From PERCOCET) (Severe, SWELLING 10/03/16) JOSE Inhibitors (UNKNOWN 10/03/16) Uncoded Allergies: ANGIOTENSIN-2 (Severe, SWELLING 01/09/16) Home Med List: Apixaban (Eliquis) 2.5 MG TABLET 1 TAB PO BID BLOOD THINNER (Reported) Aspirin (Aspirin*) 81 MG TAB.CHEW 1 TAB PO DAILY HEART HEALTH (Reported) Docusate Sodium (Stool Softener) 250 MG CAPSULE 1 TAB PO BID STOOL SOFTENER ( Reported) Metoprolol Tartrate 25 MG TABLET 1 TAB PO BID HEART (Reported) Nifedipine (Nifedipine ER) 60 MG TAB.ER.24 1 TAB PO DAILY HEART (Reported) Sotalol HCl (Sotalol) 80 MG TABLET 1 TAB PO BID HEART (Reported) Spironolactone (Aldactone) 25 MG TABLET 1 TAB PO DAILY WATER RETENTION ( Reported) Temazepam 15 MG CAPSULE 1 CAP PO QPM SLEEP (Reported) Current Medications: Current Medications Sig/Amaury Start time Last Medication Dose Route Stop Time Status Admin Acetaminophen 650 MG Q6P PRN 10/03 1545 UNVr PO Acetaminophen 1,000 MG Q6P PRN 10/03 1545 UNVr IV Apixaban 2.5 MG BID 10/03 2199 UNVr PO Aspirin 0 .STK-MED ONE 10/03 1653 DC PO Aspirin 81 MG DAILY 10/03 1626 UNVr 10/03 PO 1657 Docusate Sodium 200 MG BID 10/03 2199 UNVr PO Nifedipine 60 MG DAILY 10/04 1000 UNVr PO Sotalol HCl 80 MG BID 10/03 2199 UNVr PO Spironolactone 25 MG DAILY 10/04 1000 UNVr PO Temazepam 15 MG QPM 10/03 220 UNVr PO Review of Systems Review of Systems: She has no other complaints in the review of systems. 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 Surgical History Surgical History: avr, pacemaker Psychosocial History ETOH Use: denies use Illicit Drug Use: denies illicit drug use Exam & Diagnostic Data Vital Signs and I&O Vital Signs Date Time Temp Pulse Resp B/P B/P Pulse O2 O2 Flow FiO2 Mean Ox Delivery Rate 10/03 1638 96.9 77 15 151/74 99 Room Air Room Air 10/03 1441 69 15 116/56 95 Room Air Room Air 10/03 1430 Room Air Room Air 10/03 1242 98.2 84 16 124/64 95 Room Air Intake & Output 10/03 1600 10/03 0810/03 0000 10/02 1600 10/02 0000 Intake Total 0 Output Total Balance 0 Intake, Oral 0 Patient 130 lb Weight Weight Reported by Patient Measurement Method Physical Exam: She is in no distress and looks very well. HEENT exam is normal Neck veins not distended Carotids normal Chest is clear Heart reveals grade 2 to 3/6 systolic ejection murmur at the base Pacemaker is in place in the left chest wall Abdomen is benign Extremities good pulses no edema Labs/Luis Manuel Results: Laboratory Tests 10/03 10/03 1551 1252 Chemistry Sodium (137 - 145 mmol/L) 133 L Potassium (3.5 - 5.1 mmol/L) 4.2 Chloride (98 - 107 mmol/L) 98 Carbon Dioxide (22 - 30 mmol/L) 23 Anion Gap (5 - 16) 12 BUN (7 - 17 mg/dL) 18 H Creatinine (0.5 - 1.0 mg/dL) 0.9 Estimated GFR (>60 ml/min) 60 BUN/Creatinine Ratio (7 - 25 %) 20.0 Glucose (65 - 99 mg/dL) 138 H Calcium (8.4 - 10.2 mg/dL) 9.4 Total Bilirubin (0.2 - 1.3 mg/dL) 0.5 AST (14 - 36 U/L) 20 ALT (9 - 52 U/L) 21 Alkaline Phosphatase (<127 U/L) 75 Troponin I (< 0.11 ng/ml) < 0.01 < 0.01 Total Protein (6.3 - 8.2 g/dL) 6.8 Albumin (3.5 - 5.0 g/dL) 3.9 Globulin (1.9 - 4.2 gm/dL) 2.9 Albumin/Globulin Ratio (1.1 - 2.2 %) 1.3 Coagulation PT (9.4 - 12.5 SEC) 13.5 H INR (0.90 - 1.19) 1.29 H APTT (25 - 37 SEC) 33 D-Dimer High Sensitivty (0 - 243 ng/ml) 298 H Hematology CBC w Diff NO MAN DIFF REQ WBC (4.8 - 10.8 /CUMM) 11.5 H RBC (4.20 - 5.40 /CUMM) 3.41 L Hgb (12.0 - 16.0 G/DL) 10.6 L Hct (37 - 47 %) 31.5 L MCV (81.0 - 99.0 FL) 92.4 MCH (27.0 - 31.0 PG) 31.2 H RDW (11.5 - 14.5 %) 14.9 H Plt Count (130 - 400 /CUMM) 259 MPV (7.4 - 10.4 FL) 8.9 Gran % (42.2 - 75.2 %) 75.0 Lymphocytes % (20.5 - 51.1 %) 15.7 L Monocytes % (1.7 - 9.3 %) 7.3 Eosinophils % (0 - 5 %) 0.7 Basophils % (0.0 - 2.0 %) 1.3 Absolute Granulocytes (1.4 - 6.5 /CUMM) 8.6 H Absolute Lymphocytes (1.2 - 3.4 /CUMM) 1.8 Absolute Monocytes (0.10 - 0.60 /CUMM) 0.8 H Absolute Eosinophils (0.0 - 0.7 /CUMM) 0.1 Absolute Basophils (0.0 - 0.2 /CUMM) 0.2 PUBS MCHC (33.0 - 37.0 G/DL) 33.8 Diagnostic Data EKG Results Initial EKG showed atrial pacing at a rate of 65 with right bundle branch block pattern. CXR Results A plain chest x-ray was not done Other Results IMPRESSION: 1. No evidence of pulmonary emboli. 2. 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 3. Findings most consistent with subsegmental atelectasis most notably involving the superior segment of the left lower lobe. 4. T1 compression deformity is likely stable since 01/09/2016. Otherwise age indeterminate. VTE: Negative for pulmonary embolism. DICTATED BY: FELISA GARCIA MD DATE/TIME DICTATED:10/03/161432 COMPRESSED GASES TESTER:QUEENIE DATE/TIME TRANSCRIBED:10/03/161432 CONFIDENTIAL, DO NOT COPY WITHOUT APPROPRIATE AUTHORIZATION. <Electronically signed in Other Vendor System> SIGNED BY: FELISA GARCIA MD [id number] Assessment/Plan Assessment/Plan Ebony is having some atypical chest pains which I don't believe are cardiac. She has a nondiagnostic EKG and negative enzymes 2. I don't believe she actually has any underlying coronary artery disease based on her past history. Most likely her pain is musculoskeletal in nature. We will observe her for another 24 hours and if her enzymes continue to be negative and she has no arrhythmias then she can probably be discharged at that time. Consult Acknowledgment - Thank you for your consult request.
--- NOTE | 2016-10-03 18:49 | NUR ---
BED ASSIGNMENT 180-02
--- NOTE | 2016-10-03 18:54 | NUR ---
RN WILL CALL BACK WHEN ROOM IS CLEAN.
--- NOTE | 2016-10-03 18:54 | NUR ---
REPORT GIVEN TO ROLAN WILSON.
[2016-10-03 22:00] VITALS: BP 126/60
[2016-10-04 07:04] VITALS: BP 148/70
[2016-10-04 08:32] LABS: ABSOLUTE BASOPHIL COUNT 0 /CUMM (0.0-0.2); ABSOLUTE EOSINOPHIL COUNT 0.1 /CUMM (0.0-0.7); ABSOLUTE LYMPH COUNT 1.2 /CUMM (1.2-3.4); ABSOLUTE MONOCYTE COUNT 1.3 /CUMM (0.10-0.60); BASOPHIL % 0.2 % (0.0-2.0); EOSINOPHIL % 0.5 % (0-5); GRANULOCYTE % 77.3 % (42.2-75.2); HEMATOCRIT 31.3 % (37-47); MEAN CORPUSCULAR HGB 31.2 PG (27.0-31.0); MEAN CORPUSCULAR HGB CONC 33.6 G/DL (33.0-37.0); MEAN PLATELET VOLUME 9.4 FL (7.4-10.4); PLATELET COUNT 226 /CUMM (130-400); RBC DISTRIBUTION WIDTH 14.8 % (11.5-14.5); RED BLOOD CELL CT 3.36 /CUMM (4.20-5.40); WHITE BLOOD CELL COUNT 11.7 /CUMM (4.8-10.8)
--- NOTE | 2016-10-04 09:50 | PN- Housestaff ---
KIMBERLY FREED 10/04/16 0950: Assessment/Plan Assessment: 24h observation GABE JOSHUA 10/04/16 0952: Attending MD Review Statement Attending Statement Attending MD Statement: examined this patient, discuss w/resident/PA/YARN WINDER, agreed w/resident/PA/YARN WINDER, discussed with family, reviewed EMR data (avail), discussed with nursing, discussed with case mgmt, reviewed images, amended to note Attending Assessment/Plan: 85 o/f with atypical chest pain in intermediate risk patient , serial cardiac enzymes negative, cardiology consulted, possible D/c today, f/u o/p PCP in 1 week of dc
--- NOTE | 2016-10-04 10:11 | PN- Cardiology ---
Subjective Subjective: The patient is still complaining of some vague heaviness in the chest and also occasional brief sharp discomfort. She's had no arrhythmias. Her enzymes are negative 3. Her EKG does not show any significant abnormalities. Her echocardiogram showed good left ventricular systolic function and good function of her artificial aortic valve. Objective Vital Signs and I&Os Vital Signs Date Time Temp Pulse Resp B/P B/P Pulse O2 O2 Flow FiO2 Mean Ox Delivery Rate 10/04 0704 97.8 70 16 148/70 98 Nasal Cannula 10/04 0000 96 Nasal 2.0L Cannula 10/03 220 98.3 72 20 126/60 97 Room Air 10/03 2000 97 Room Air 10/03 1857 97.4 69 15 141/63 96 Room Air Room Air 10/03 1638 96.9 77 15 151/74 99 Room Air Room Air 10/03 1441 69 15 116/56 95 Room Air Room Air 10/03 1430 Room Air Room Air 10/03 1242 98.2 84 16 124/64 95 Room Air Intake & Output 10/04 1600 10/04 0800 10/04 0000 10/03 1600 10/03 0800 10/03 0000 Intake Total 200 260 0 Output Total 400 400 Balance -200 -140 0 Intake, Oral 200 260 0 Number 0 Bowel Movements Output, Urine 400 400 Patient 130 lb 130 lb Weight Weight Reported by Patient Measurement Method Physical Exam: She is in no distress HEENT exam is normal Chest is clear Heart reveals regular rhythm and a soft systolic ejection murmur at the base Extremities no edema Current Medications: Current Medications Sig/Amaury Start time Last Medication Dose Route Stop Time Status Admin Acetaminophen 650 MG Q6P PRN 10/03 1545 AC PO Acetaminophen 1,000 MG Q6P PRN 10/03 1545 AC IV Apixaban 2.5 MG BID 10/03 2199 AC 10/03 PO 215 Aspirin 0 .STK-MED ONE 10/03 1653 DC PO Aspirin 81 MG DAILY 10/03 1626 AC 10/03 PO 165 Docusate Sodium 200 MG BID 10/03 2199 AC 10/03 PO 215 Nifedipine 60 MG DAILY 10/04 1000 AC PO Sotalol HCl 80 MG BID 10/03 2199 AC 10/03 PO 2200 Spironolactone 25 MG DAILY 10/04 1000 AC PO Temazepam 15 MG QPM 10/03 2199 AC 10/03 PO 2159 Results Last 48 Hrs of Labs/Mics: Laboratory Tests 10/04/16 0709: Anion Gap 9, Estimated GFR > 60, BUN/Creatinine Ratio 25.7 H, CBC w Diff NO MAN DIFF REQ, RBC 3.36 L, MCV 93.0, MCH 31.2 H, RDW 14.8 H, MPV 9.4, Gran % 77.3 H, Lymphocytes % 10.6 L, Monocytes % 11.4 H, Eosinophils % 0.5, Basophils % 0.2, Absolute Granulocytes 9.0 H, Absolute Lymphocytes 1.2, Absolute Monocytes 1.3 H, Absolute Eosinophils 0.1, Absolute Basophils 0, PUBS MCHC 33.6 10/04/16 0130: Troponin I < 0.01 10/03/16 1848: Troponin I < 0.01 10/03/16 1551: Troponin I < 0.01 10/03/16 1252: Anion Gap 12, Estimated GFR 60, BUN/Creatinine Ratio 20.0, Glucose 138 H, Calcium 9.4, Total Bilirubin 0.5, AST 20, ALT 21, Alkaline Phosphatase 75, Troponin I < 0.01, Total Protein 6.8, Albumin 3.9, Globulin 2.9, Albumin/ Globulin Ratio 1.3, PT 13.5 H, INR 1.29 H, APTT 33, D-Dimer High Sensitivty 298 H, CBC w Diff NO MAN DIFF REQ, RBC 3.41 L, MCV 92.4, MCH 31.2 H, RDW 14.9 H, MPV 8.9, Gran % 75.0, Lymphocytes % 15.7 L, Monocytes % 7.3, Eosinophils % 0.7, Basophils % 1.3, Absolute Granulocytes 8.6 H, Absolute Lymphocytes 1.8, Absolute Monocytes 0.8 H, Absolute Eosinophils 0.1, Absolute Basophils 0.2, PUBS MCHC 33.8 Assessment/Plan Assessment/Plan Ebony is doing well. Her chest discomfort is clearly not cardiac in nature. Her echocardiogram looks good. I think she can be discharged home on usual medications with just analgesics for her discomfort. Continue telemetry? No
[2016-10-04 10:39] VITALS: BP 142/62
--- NOTE | 2016-10-04 11:02 | ECHOCARDIOGRAM REPORT ---
GODWIN GOMEZ Age: 85 : 1930 Gender: F Exam Date: 10/03/2016 20:07 Exam Location: 2 [address] A Ht (in): 61 Wt (lb): 130 BSA: 1.60 BP: 141 / 63 Ordering Physician: YANG VALIENTE MD Referring Physician: Jake Bejarano MD Chief, SoC Technologist: Cristy Duron [facility] Room Number: 180-02 Indications: CARDIOMYOPATHY Rhythm: Sinus Technical Quality: Good FINDINGS Left Ventricle Normal size left ventricle. Mild concentric left ventricular hypertrophy. Normal left ventricular ejection fraction visually estimated at >65 %. No obvious regional wall motion abnormalities. Normal left ventricular diastolic filling pattern for age. Right Ventricle Normal right ventricular size and function. Catheter/pacemaker wire in the right ventricular cavity. Right Atrium Borderline right atrial size. Catheter/pacemaker wire in the right atrial appendage. Left Atrium Mild left atrial dilatation. Mitral Valve The mitral leaflets are mild to moderately thickened with good excursion. There is mild mitral regurgitation. Aortic Valve The aortic valve is a transcatheter aortic valve replacement. The valve is well seated. The leaflets are not well seen. No aortic stenosis. No aortic regurgitation. Tricuspid Valve Tricuspid valve is normal in structure and function. Mild to moderate tricuspid regurgitation. Right ventricular systolic pressure estimated to be elevated at 45-50 mmHg. Pulmonic Valve Pulmonic valve not well visualized, grossly normal. Trace pulmonic regurgitation. Pericardium No pericardial or pleural effusion. Great Vessels Normal size aortic root. CONCLUSIONS Mild concentric left ventricular hypertrophy. Normal left ventricular ejection fraction visually estimated at >65 No obvious regional wall motion abnormalities. Catheter/pacemaker wire in the right ventricular cavity. Borderline right atrial size. Catheter/pacemaker wire in the right atrial appendage. Mild left atrial dilatation. The mitral leaflets are mild to moderately thickened with good excursion. There is mild mitral regurgitation. The aortic valve is a transcatheter aortic valve replacement. The valve is well seated. The leaflets are not well seen. No aortic stenosis. No aortic regurgitation. Mild to moderate tricuspid regurgitation. Right ventricular systolic pressure estimated to be elevated at 45- 50 mmHg. Jake Bejarano M.D. (Electronically Signed) Final Date: 04 October 2016 11:01 MEASUREMENTS (Male / Female) Normal Values 2D ECHO LV Diastolic Diameter PLAX 4.0 cm 4.2 - 5.9 / 3.9 - 5.3 cm LV Systolic Diameter PLAX 2.7 cm 2.1 - 4.0 cm LV Fractional Shortening PLAX 32.5 % 25 - 46 % LV Ejection Fraction 2D Teich 61.4 % IVS Diastolic Thickness 1.2 cm LVPW Diastolic Thickness 1.2 cm LV Relative Wall Thickness 0.6 RV Internal Dim ED PLAX 2.9 cm 1.9 - 3.8 cm LVOT Diameter 1.8 cm Aortic Root Diameter 1.7 cm LA Systolic Diameter LX 4.2 cm 3.0 - 4.0 / 2.7 - 3.8 cm LA Volume 47.0 cm 18 - 58 / 22 - 52 cm Ascending Aorta Diameter 3.2 cm DOPPLER AV Peak Velocity 176.0 cm/s AV Peak Gradient 12.4 mmHg AV Mean Velocity 130.0 cm/s AV Mean Gradient 8.0 mmHg AV Velocity Time Integral 37.8 cm LVOT Peak Velocity 108.0 cm/s LVOT Peak Gradient 4.7 mmHg LVOT Mean Velocity 76.3 cm/s LVOT Mean Gradient 3.0 mmHg LVOT Velocity Time Integral 22.2 cm LVOT Stroke Volume 56.5 cm AV Area Cont Eq vti 1.5 cm AV Area Cont Eq pk 1.6 cm MV Peak Velocity 186.0 cm/s MV Peak Gradient 13.8 mmHg MV Mean Velocity 71.7 cm/s MV Mean Gradient 3.0 mmHg Mitral E Point Velocity 85.4 cm/s Mitral A Point Velocity 35.5 cm/s Mitral E to A Ratio 2.4 MV PHT Velocity 188.0 cm/s MV Deceleration [place] 885.0 cm/s MV Pressure Half Time 63.7 ms MV Area PHT 3.5 cm MV Deceleration Time 257.0 ms TR Peak Velocity 331.0 cm/s TR Peak Gradient 43.8 mmHg Right Atrial Pressure 5.0 mmHg Pulmonary Artery Systolic Pressu 48.8 mmHg Right Ventricular Systolic Press 48.8 mmHg PV Peak Velocity 78.5 cm/s PV Peak Gradient 2.5 mmHg PV Mean Velocity 51.4 cm/s PV Mean Gradient 1.0 mmHg PV Velocity Time Integral 16.8 cm LV E' Lateral Velocity 8.8 cm/s Mitral E to LV E' Lateral Ratio 9.7 LV E' Septal Velocity 5.9 cm/s Mitral E to LV E' Septal Ratio 14.4
--- NOTE | 2016-10-04 11:14 | Patient Discharge Instructions ---
Discharge Instructions General Discharge Information You were seen/treated for: Chest pain- musculoskeltal You had these procedures: None Special Instructions: please f/u pcp in 1 week after d/c please f/u your cardiology in one week afrter d/c Diet Continue normal diet: Yes Activity Full Activity/No Limits: Yes Acute Coronary Syndrome Inclusion Criteria At DC or during hospital stay patient has or had the following: ACS DIAGNOSIS No Discharge Core Measures Meds if any: Prescribed or Continued at Discharge Meds if any: NOT Prescribed or Continued at Discharge Congestive Heart Failure Inclusion Criteria At DC or during hospital stay patient has or had the following: CHF DIAGNOSIS No Discharge Core Measures Meds if any: Prescribed or Continued at Discharge Meds if any: NOT Prescribed or Continued at Discharge Cerebrovascular accident Inclusion Criteria At DC or during hospital stay patient has or had the following: CVA/TIA Diagnosis No Discharge Core Measures Meds if any: Prescribed or Continued at Discharge Meds if any: NOT Prescribed or Continued at Discharge Venous thromboembolism Inclusion Criteria VTE Diagnosis No VTE Type NONE VTE Confirmed by (Test) NONE Discharge Core Measures - Per Current guidelines, there needs to be overlap - treatment for the first 5 days of Warfarin therapy. - If discharged on Warfarin prior to 5 days of - overlap therapy, the patient will need to be - assessed for post discharge needs including - *Post discharge parental anticoagulation - *Warfarin and/or parental anticoagulation education - *Follow up date to check INR post discharge At least 5 days overlap therapy as Inpatient No Meds if any: Prescribed or Continued at Discharge Note: Overlap Therapy is Warfarin and Anticoagulant Meds if any: NOT Prescribed or Continued at Discharge
--- NOTE | 2016-10-04 14:17 | PN-Observation ---
See Addendum Observation Note Observation Note _ I have personally examined GODWIN GOMEZ. her disposition is uncertain at this time. Before a determination can be made, she requires continued observation for left side chest pain Assessment/Plan Assessment: 24h observation Problem List: 1. Chest pain Plan: Atypical Chest pain * ACS ruled out, serial Trop and ECG neg * Follow up with wire border assembler within 1-2 weeks of discharge * Follow up w PCP within 1 week of discharge Discharge Plan Discharge Disposition: home Stable for Discharge? Yes Anticipated Discharge (Day): tomorrow Subjective Follow-up For: Atypical chest pain Subjective: Patient states still feel mild musculoskeletal chest pain on palpation and pain with deep breating Review of Systems Constitutional: Reports: see HPI. Objective Last 24 Hrs of Vital Signs/I&O Vital Signs Date Time Temp Pulse Resp B/P B/P Pulse O2 O2 Flow FiO2 Mean Ox Delivery Rate 10/04 1039 77 142/62 10/04 0704 97.8 70 16 148/70 98 Nasal Cannula 10/04 0000 96 Nasal 2.0L Cannula 10/03 2199 98.3 72 20 126/60 97 Room Air 10/03 2000 97 Room Air 10/03 1857 97.4 69 15 141/63 96 Room Air Room Air 10/03 1638 96.9 77 15 151/74 99 Room Air Room Air 10/03 1441 69 15 116/56 95 Room Air Room Air 10/03 1430 Room Air Room Air Intake & Output 10/04 1600 10/04 0800 10/04 0000 Intake Total 200 260 Output Total 400 400 Balance -200 -140 Intake, Oral 200 260 Number 0 Bowel Movements Output, Urine 400 400 Patient 130 lb Weight Physical Exam General Appearance: Alert, Oriented X3, Cooperative, No Acute Distress HEENT: Atraumatic, PERRLA Neck: Supple, No JVD Cardiovascular: Normal S1, Normal S2, Musculoskeletal pain on palpation of left parasternal chest Lungs: Clear to Auscultation, Normal Air Movement Abdomen: Normal Bowel Sounds, Soft, Mild tenderness at hysterectomy incision site Extremities: No Cyanosis, No Edema Current Medications: Current Medications Sig/Amaury Start time Last Medication Dose Route Stop Time Status Admin Acetaminophen 650 MG Q6P PRN 10/03 1545 DCD PO Acetaminophen 1,000 MG Q6P PRN 10/03 1545 DCD IV Apixaban 2.5 MG BID 10/03 2199 DCD 10/04 PO 1037 Aspirin 0 .STK-MED ONE 10/03 1653 DC PO Aspirin 81 MG DAILY 10/03 1626 DCD 10/04 PO 1035 Docusate Sodium 200 MG BID 10/03 2199 DCD 10/04 PO 1036 Nifedipine 60 MG DAILY 10/04 1000 DCD 10/04 PO 1039 Patient Medication 1 ED .STK-MED ONE 10/04 1409 SC Teaching ED 10/04 1410 Sotalol HCl 80 MG BID 10/03 2199 DCD 10/04 PO 1039 Spironolactone 25 MG DAILY 10/04 1000 DCD 10/04 PO 1035 Temazepam 15 MG QPM 10/03 2199 DCD 10/03 PO 2159 Last 24 Hrs of Labs/Mics: Laboratory Tests 10/04/16 0709: Anion Gap 9, Estimated GFR > 60, BUN/Creatinine Ratio 25.7 H, CBC w Diff NO MAN DIFF REQ, RBC 3.36 L, MCV 93.0, MCH 31.2 H, RDW 14.8 H, MPV 9.4, Gran % 77.3 H, Lymphocytes % 10.6 L, Monocytes % 11.4 H, Eosinophils % 0.5, Basophils % 0.2, Absolute Granulocytes 9.0 H, Absolute Lymphocytes 1.2, Absolute Monocytes 1.3 H, Absolute Eosinophils 0.1, Absolute Basophils 0, PUBS MCHC 33.6 10/04/16 0130: Troponin I < 0.01 10/03/16 1848: Troponin I < 0.01 10/03/16 1551: Troponin I < 0.01
== END 2016-10-04 13:12 ==
LOC: ERH 12:36 → 1NO 15:28 → ERHI 15:28 → ENRESERV 18:39 → ENTRNSPT 19:27 → 1NO 19:44 → CMPTRNSPT 20:09 → 1NO 10-04 08:27 → ENPENDDIS 10-04 11:29 → 1NO 10-04 13:12
PROVIDERS: Emergency Medicine; Physician Assistant Medical; Student in an Organized Health Care Education/Training Program; ADMIT Internal Medicine
DX: R07.9 Chest pain, unspecified (principal); I48.91 Unspecified atrial fibrillation; Z79.01 Long term (current) use of anticoagulants; N18.3 Chronic kidney disease, stage 3 (moderate); I13.0 Hypertensive heart and chronic kidney disease with heart failure and stage 1 through stage 4 chronic kidney disease, or unspecified chronic kidney disease; I50.9 Heart failure, unspecified; Z95.0 Presence of cardiac pacemaker; G47.30 Sleep apnea, unspecified; Z95.2 Presence of prosthetic heart valve
CPT/HCPCS: 1328; 1530; 1748; 6020; 36415; 82436; 93005; 93010; 93306; G0378; J3490

== ENCOUNTER 2016-10-09 13:04 | Inpatient (IN) | payer OTHER, MEDICARE ==
[~2016-10-09] VITALS: Ht 154.9 cm; Wt 59.0 kg
[~2016-10-09 13:04] MED LIST changes: +ASPIRIN81 M4 PO; +SOTALOL80 M1 PO; +STOOL SOFTENER250 M1 PO; +TEMAZEPAM15 M1 PO
--- NOTE | 2016-10-09 13:13 | NUR ---
85 Y/0 FEMALE BIBA FROM HOME FOR EVAL OF 1 WEEK HISTORY DIZZINESS, POOR PO INTAKE, COUGH WITH "STICKY WHITE PHLEGM" AND DIFFUSE CHEST PAIN. PER FAMILY MEMBER, EVALUATED FOR SAME SYMPTOMS ON MONDAY. PT STATES "I DONT FEEL ANY BETTER. THEY DIDNT ADDRESS THE PAIN OR THE COUGH". EKG IN PROGRESS
--- NOTE | 2016-10-09 13:20 | NUR ---
DR BARBOUR AT THE BEDSIDE
--- NOTE | 2016-10-09 13:35 | ED CARDIAC/CP/PALPITATIONS ---
History of Present Illness General Chief Complaint: General Adult Stated Complaint: BIBA CHEST PAIN / DIZZINESS Source: patient Exam Limitations: no limitations Vital Signs & Intake/Output Vital Signs & Intake/Output Vital Signs Date Time Temp Pulse Resp B/P B/P Pulse O2 O2 Flow FiO2 Mean Ox Delivery Rate 10/13 0000 Nasal 1.0L Cannula 10/12 2200 98.2 69 20 114/60 99 Room Air 10/12 1422 98.5 71 18 118/60 97 Room Air 10/12 0857 70 124/52 ED Intake and Output 10/13 0000 10/12 1200 Intake Total 1700 450 Output Total 2450 500 Balance -750 -50 Intake, IV 0 250 Intake, Oral 1700 200 Number 1 0 Bowel Movements Output, Urine 2450 500 Allergies Coded Allergies: Sulfa (Sulfonamide Antibiotics) (Severe, SWELLING 10/03/16) diphenhydramine (From BENADRYL) (Severe, MAKES CRAZY, HALLUCINATION 10/09/16) hydromorphone (From DILAUDID) (Severe, CONFUSION 10/09/16) morphine (Severe, SYNCOPE 10/03/16) oxycodone (From PERCOCET) (Severe, EXTREME VOMITING 10/09/16) JOSE Inhibitors (UNKNOWN PER PT 10/09/16) ARB-Angiotensin Receptor Antagonist (SWELLING 10/09/16) Reconcile Medications Apixaban (Eliquis) 2.5 MG TABLET 1 TAB PO BID BLOOD THINNER (Reported) Aspirin (Aspirin*) 81 MG TAB.CHEW 1 TAB PO DAILY HEART HEALTH (Reported) Cefuroxime Axetil (Ceftin) 250 MG/5 ML SUSP.RECON 5 ML PO BID pneumonia Docusate Sodium (Stool Softener) 250 MG CAPSULE 1 TAB PO BID STOOL SOFTENER ( Reported) Meloxicam 15 MG TABLET 1 TAB PO DAILY PAIN Metoprolol Tartrate 25 MG TABLET 1 TAB PO BID PRN PRN HEART RATE >120 ( Reported) Nifedipine (Nifedipine ER) 60 MG TAB.ER.24 1 TAB PO DAILY HEART (Reported) Omeprazole 20 MG CAPSULE.DR 1 CAP PO DAILY GERC (Reported) Sotalol HCl (Sotalol) 80 MG TABLET 1 TAB PO BID HEART (Reported) Spironolactone (Aldactone) 25 MG TABLET 1 TAB PO DAILY WATER RETENTION ( Reported) Temazepam 15 MG CAPSULE 1 CAP PO QPM SLEEP (Reported) Triage Note: 85 Y/0 FEMALE BIBPedro FROM HOME FOR EVAL OF 1 WEEK HISTORY DIZZINESS, POOR PO INTAKE, COUGH WITH "STICKY WHITE PHLEGM" AND DIFFUSE CHEST PAIN. PER FAMILY MEMBER, EVALUATED FOR SAME SYMPTOMS ON MONDAY. PT STATES "I DONT FEEL ANY BETTER. THEY DIDNT ADDRESS THE PAIN OR THE COUGH". EKG IN PROGRESS Triage Nurses Notes Reviewed? yes HPI: Patient presents for evaluation of a severe rope-like chest pain that began on Monday. The patient's pain has been constant since Monday and gets worse with deep inspiration. She states she was kept overnight on Monday into Monday at [facility] and had a full evaluation of her heart including an echocardiogram that apparently was normal. She has tried Tylenol without relief. She states she has also had an associated nonproductive cough and episodic dizziness. She has been "too sick" to see her primary care physician. In addition she states that from Monday to Monday she had an episode of atrial fibrillation (she has had this in the past) that ultimately responded to an increased dose of her metoprolol. She recently traveled in from [place] September 10. She denies any leg pain or leg swelling. Past History Travel History Traveled to [facility] past 21 day No Medical History Any Pertinent Medical History? see below for history Neurological: NONE EENT: NONE Cardiovascular: AFIB, hypertension, pacemaker sleep apnea PERICARDITIS Respiratory: NONE Gastrointestinal: NONE Hepatic: NONE Renal: NONE Musculoskeletal: NONE Psychiatric: NONE Endocrine: NONE Blood Disorders: NONE Cancer(s): NONE AGENCY SERVICE REPRESENTATIVE/Reproductive: NONE History of MRSA: No History of VRE: No History of CDIFF: No Surgical History Surgical History: appendectomy, hysterectomy, avr, pacemaker Diverticular surgery (08/2016), Femoral screw (2016), Back surgery Psychosocial History What is your primary language Jamaican Tobacco Use: Never used Family History Hx Contributory? No Review of Systems Review of Systems Constitutional: Reports: no symptoms. EENTM: Reports: no symptoms. Respiratory: Reports: no symptoms. Cardiovascular: Reports: no symptoms. GI: Reports: no symptoms. Genitourinary: Reports: no symptoms. Musculoskeletal: Reports: no symptoms. Skin: Reports: no symptoms. Neurological/Psychological: Reports: no symptoms. Hematologic/Endocrine: Reports: no symptoms. Immunologic/Allergic: Reports: no symptoms. All Other Systems: Reviewed and Negative Physical Exam Physical Exam Cardiovascular: SEE BELOW Comments: Gen.: Well-nourished, well-developed, no acute respiratory distress. Head: Normocephalic, atraumatic. Eyes: Normal inspection bilaterally Ears: Normal inspection bilaterally Nose: Normal inspection Throat/mouth : Moist mucosa Neck: Supple, full range of motion, no goiter Heart: Regular rate and rhythm, no murmurs rubs or gallops Lungs: Clear to auscultation bilaterally with normal air entry Chest: Nontender Back: Normal range of motion Abdomen: Soft, nontender, nondistended, normal bowel sounds Extremities: Normal range of motion grossly, equal radial pulses, no cyanosis clubbing or edema, calves nontender Neurologic: Cranial nerves grossly intact, speech is clear Skin: warm and dry Psychiatric: Calm, cooperative, no apparent delusions or hallucinations Core Measures ACS in differential dx? Yes Severe Sepsis Present: No Septic Shock Present: No Progress Differential Diagnosis: ACUTE CORONARY SYNDROME/ANGINA, ACID REFLUX, MUSCULOSKELETAL PAIN Plan of Care: Orders Procedure Date/time Status PT Evaluate & Treat 10/12 UNK Active Therapeutic Activities 10/12 UNK Complete PT EVAL LOW COMPLEX 20 MIN 10/12 UNK Complete Gait Training 10/12 UNK Complete Anticipated Discharge 10/12 UNK Active MISSING MEDICATION FORM 10/12 UNK Active INCENTIVE SPIROMETRY TRX CHG 10/11 UNK Complete Current Medications Sig/Amaury Start time Last Medication Dose Stop Time Status Admin Azithromycin 250 MG DAILY 10/12 1111 AC 10/12 (Zithromax) 10/13 1001 1453 Cefuroxime Sodium 250 MG Q12 10/12 1110 AC 10/12 (Ceftin) 2112 Furosemide 20 MG DAILY 10/12 1000 AC 10/12 (Lasix) 0857 Omeprazole 40 MG BID 10/10 2200 AC 10/12 (Prilosec) 2112 Meloxicam 15 MG DAILY@1800 10/10 1800 AC 10/12 (Mobic 7.5MG) 1652 Sucralfate 1 GM TID 10/10 1600 AC 10/12 (Carafate Suspension) 2112 Acetaminophen 325 MG Q6P PRN 10/10 1415 AC (Tylenol) Nifedipine 60 MG DAILY 10/10 1000 AC 10/12 (Procardia XL) 0857 Spironolactone 25 MG DAILY 10/10 1000 AC 10/12 (Aldactone) 0855 Metoprolol Tartrate 25 MG BID PRN 10/10 0830 AC (Lopressor) Guaifenesin 10 ML Q6P PRN 10/09 2215 AC (Robitussin) Guaifenesin 600 MG Q12 10/09 2201 AC 10/12 (Mucinex) 2111 Apixaban 2.5 MG BID 10/09 2200 AC 10/12 (Eliquis) 2111 Sotalol HCl 80 MG BID 10/09 220 AC 10/12 (Betapace) 2111 Temazepam 15 MG QPM 10/09 220 AC 10/12 (Restoril) 211 Acetaminophen 1,000 MG Q6P PRN 10/09 2100 AC (Ofirmev) N/A 1 UNIT (No Carrier) Nitroglycerin 0.5 GM Q6 PRN 10/09 1915 AC 10/10 (Nitro-Bid) 0326 Acetaminophen 325 MG Q6P PRN 10/09 1845 AC (Tylenol) Aspirin 81 MG DAILY 10/09 1830 AC 10/12 (Aspirin) 0855 Diagnostic Imaging: Discussed w/RAD: Radiology Read. Radiology Impression: PATIENT: GODWIN GOMEZ PRESENT AGE: 85 PATIENT ACCOUNT NO: [id number] : 31 LOCATION: [facility] ORDERING PHYSICIAN: LUIS FERNANDO BARBOUR MD SERVICE DATE: 10/09/16 EXAM TYPE: CAT - CT NECK WO IV CONTRAST EXAMINATION: CT NECK WITHOUT CONTRAST CLINICAL INFORMATION: 85-year-old woman with hoarse voice and cough. COMPARISON: None TECHNIQUE: Helical CT images were obtained through the neck without the use of intravenous contrast. DLP: 450 mGy-cm FINDINGS: The airway, including the nasopharynx, oropharynx, hypopharynx, and larynx is widely patent. No pathologically enlarged lymph nodes are seen by standard CT criteria. The noncontrast appearance of the parotid, atrophied submandibular, and thyroid glands is normal. Limited assessment of the skull base is unremarkable. Degenerative changes are noted throughout the cervical spine. Evaluation of the lung apices is notable for small bilateral pleural effusions, left larger than right. These are new since a chest CT performed on 10/03/2016. IMPRESSION: Unremarkable noncontrast CT appearance of the neck. Small new bilateral pleural effusions, left larger than right. DICTATED BY: ANABEL GARVEY,GENEVA DATE/TIME DICTATED:10/09/161555 ASSISTANT STORE MANAGER SALES:QUEENIE DATE/TIME TRANSCRIBED:1555 CONFIDENTIAL, DO NOT COPY WITHOUT APPROPRIATE AUTHORIZATION. < Electronically signed in Other Vendor System> SIGNED BY: GENEVA LITTLE MD 1603 CXR Impression: PATIENT: GODWIN GOMEZ PRESENT AGE: 85 PATIENT ACCOUNT NO: [id number] : 31 LOCATION: [facility] ORDERING PHYSICIAN: LUIS FERNANDO BARBOUR MD SERVICE DATE: 10/09/16 EXAM TYPE: RAD - XRY-CHEST XRAY, PA AND LATERAL EXAMINATION: XR CHEST CLINICAL INFORMATION: Chest pressure, dyspnea, cough. COMPARISON: Chest radiography 01/09/2016. TECHNIQUE: 2 views of the chest were obtained. FINDINGS: The lungs are well expanded. There is mild left lower lobe patchy opacification with mild blunting of the left posterior costophrenic angle. There is a subcentimeter patchy/nodular opacity peripherally overlying the right midlung which is nonspecific. No pulmonary edema or pneumothorax. Mediastinal contours have not significantly changed compared to prior exam. TAPVR stent and left pectoral cardiac device are demonstrated. No acute osseous abnormalities. Upper lumbar compression deformity redemonstrated. IMPRESSION: Findings suggest patchy left lower lobe consolidation and a small left pleural effusion, which may represent subtle pneumonia. Nonspecific subcentimeter nodular opacity peripherally over the right midlung. Attention on follow-up imaging recommended to ensure resolution. DICTATED BY: DARRIUS MONTAÑO MD DATE/TIME DICTATED:10/09/161358 ASSISTANT STORE MANAGER SALES:QUEENIE DATE/TIME TRANSCRIBED:10/09/161358 CONFIDENTIAL, DO NOT COPY WITHOUT APPROPRIATE AUTHORIZATION. <Electronically signed in Other Vendor System> SIGNED BY: DARRIUS MONTAÑO MD 10/09/16 140 Initial ED EKG: NSR, RBBB Prior EKG: changed (PACED RHYTHM ON PRIOR) Comments: 10/09/2016 3:18:20 PM Godwin is feeling much better and has essentially no chest pain currently. She appears much more comfortable and takes a deep breath with no difficulty. We have discussed the possibility of acid reflux although the patient has been taking omeprazole with no improvement since her hospitalization. I have treated her with Nitropaste so the possibility still exists that this is angina. However the description of a constant pain that has last days at a time seems inconsistent with this. The patient is also complaining of a hoarse voice so I will order a CAT scan to evaluate the epiglottis and vocal cords. Departure Departure Disposition: STILL A PATIENT Condition: Stable Clinical Impression Primary Impression: Chest pain Qualifiers: Chest pain type: unspecified Qualified Code: R07.9 - Chest pain, unspecified Referrals: MAURISIO GARVEY,DELFINA Pete (PCP/Family) Departure Forms: Customer Survey General Discharge Information Prescriptions: Current Visit Scripts Meloxicam 1 TAB PO DAILY #30 TAB Cefuroxime Axetil (Ceftin) 5 ML PO BID #100 ML Observation Note Spoke With: RODDY GARVEY,EDMUNDO Physician Advisor Notified: GAVINO GARVEY,CHRISTAL [facility]ge[facility] Place Patient In: Non-ED OBS Care Area Rationale for Observation: My rational for observation is as follows patient presents to the emergency department for the second time with the same chest pain and epigastric her prior ED visit. During that visit she was admitted for chest pain observation and evaluation was apparently unrevealing. She has had constant rope-like chest pain for the past 4 days unresponsive to omeprazole. She is now pain-free as a result of Nitropaste and a GI cocktail. Given this patient's advanced age I feel she is still at risk for cardiac chest pain despite her recent hospitalization. Although she had serial troponins and an echocardiogram, she has yet to have a stress test or cardiac catheterization. Given her potential response to nitroglycerin, I feel she requires hospitalization for continuous cardiac monitoring serial troponins and serial EKGs and cardiology consultation. Stress test or cardiac catheterization should strongly be considered to more definitively rule out underlying cardiac disease. In addition the patient should have a GI evaluation for the possibility of acid reflux. I do not feel Godwin is a good candidate for outpatient management under these circumstances given the possibility of cardiac disease in the potential worsening with outpatient management. In addition the patient would not be observed or would have the serial troponins are EKGs. She could go on to have a myocardial infarction. Critical Care Note Critical Care Note Critical Care Time: 30-74 min
--- NOTE | 2016-10-09 14:07 | RADIOLOGY REPORT ---
EXAMINATION: XR CHEST CLINICAL INFORMATION: Chest pressure, dyspnea, cough. COMPARISON: Chest radiography 01/09/2016. TECHNIQUE: 2 views of the chest were obtained. FINDINGS: The lungs are well expanded. There is mild left lower lobe patchy opacification with mild blunting of the left posterior costophrenic angle. There is a subcentimeter patchy/nodular opacity peripherally overlying the right midlung which is nonspecific. No pulmonary edema or pneumothorax. Mediastinal contours have not significantly changed compared to prior exam. TAPVR stent and left pectoral cardiac device are demonstrated. No acute osseous abnormalities. Upper lumbar compression deformity redemonstrated. IMPRESSION: Findings suggest patchy left lower lobe consolidation and a small left pleural effusion, which may represent subtle pneumonia. Nonspecific subcentimeter nodular opacity peripherally over the right midlung. Attention on follow-up imaging recommended to ensure resolution.
[2016-10-09 14:27] LABS: ABSOLUTE BASOPHIL COUNT 0.1 /CUMM (0.0-0.2); ABSOLUTE EOSINOPHIL COUNT 0.1 /CUMM (0.0-0.7); ABSOLUTE LYMPH COUNT 1.2 /CUMM (1.2-3.4); ABSOLUTE MONOCYTE COUNT 1.1 /CUMM (0.10-0.60)
[2016-10-09 14:30] LABS: ABSOLUTE GRANULOCYTE CT 11.1 /CUMM (1.4-6.5); BASOPHIL % 0.5 % (0.0-2.0); EOSINOPHIL % 0.5 % (0-5); GRANULOCYTE % 82.3 % (42.2-75.2); MEAN CORPUSCULAR HGB 30.6 PG (27.0-31.0); MEAN CORPUSCULAR HGB CONC 33.1 G/DL (33.0-37.0); MEAN CORPUSCULAR VOLUME 92.3 FL (81.0-99.0); MEAN PLATELET VOLUME 8.3 FL (7.4-10.4); PLATELET COUNT 361 /CUMM (130-400); RBC DISTRIBUTION WIDTH 14.6 % (11.5-14.5); RED BLOOD CELL CT 3.57 /CUMM (4.20-5.40); WHITE BLOOD CELL COUNT 13.5 /CUMM (4.8-10.8)
--- NOTE | 2016-10-09 14:48 | NUR ---
IV EST. MEDICATED ORDERED (SEE MAR)
--- NOTE | 2016-10-09 15:29 | NUR ---
DR BARBOUR IN TO SEE PT. DISCUSSED PLAN TO SCAN NECK DUE TO HOARSE VOICE. PT ASSISTED TO COMMODE. COMPLAINED OF "DIZZYNESS" THAT SHE DESCRIBES ROOM SPINNING SENSATION.
--- NOTE | 2016-10-09 15:29 | NUR ---
TAKEN TO RADIOLOGY
--- NOTE | 2016-10-09 16:03 | CT SCAN REPORT ---
EXAMINATION: CT NECK WITHOUT CONTRAST CLINICAL INFORMATION: 85-year-old woman with hoarse voice and cough. COMPARISON: None TECHNIQUE: Helical CT images were obtained through the neck without the use of intravenous contrast. DLP: 450 mGy-cm FINDINGS: The airway, including the nasopharynx, oropharynx, hypopharynx, and larynx is widely patent. No pathologically enlarged lymph nodes are seen by standard CT criteria. The noncontrast appearance of the parotid, atrophied submandibular, and thyroid glands is normal. Limited assessment of the skull base is unremarkable. Degenerative changes are noted throughout the cervical spine. Evaluation of the lung apices is notable for small bilateral pleural effusions, left larger than right. These are new since a chest CT performed on 10/03/2016. IMPRESSION: Unremarkable noncontrast CT appearance of the neck. Small new bilateral pleural effusions, left larger than right.
--- NOTE | 2016-10-09 16:07 | NUR ---
PT RETURNED FROM RADIOLOGY. BARKING COUGH NON PRODUCTIVE NOTED. PT COMPLAINING OF CHEST DISCOMORT THAT SHE DESCRIBES "CONGESTION IN CHEST". NSR ON MONITOR. VITALS STABLE. STATES DIZZYNESS IS ONLY WHEN SHE MOVES
--- NOTE | 2016-10-09 16:52 | NUR ---
PER DR BARBOUR, PT MAY EAT, DINNER TRAY ORDERED
--- NOTE | 2016-10-09 17:00 | NUR ---
MD BARBOUR AT BEDSIDE
--- NOTE | 2016-10-09 17:21 | NUR ---
PT EATING DINNER
[2016-10-09] MEDS ORDERED: OMEPRAZOLE20 M2 PO (17:39)
--- NOTE | 2016-10-09 18:34 | History & Physical ---
ALLISON HLUL 10/09/16 1833: General Information and HPI MD Statement: I have seen and personally examined GODWIN GOMEZ and documented this H&P. The patient is a 85 year old F who presented with a patient stated chief complaint of [CHEST PAIN]. 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 Patient was seen on 10/03/2016 at [facility] for similar chest pain and presentation. A full workup was done and ACS was ruled out with negative troponin and EKGs. Her chest pain was improved with GI cocktail and pain killers and was attributed to GERD/musculoskeletal pain and she was discharged home on ibuprofen and omeprazole. Patient reports that she has been taking ibuprofen every 4 hours and omeprazole with no improvement in her chest pain. The pain continued about 6-7/10 on intensity in the center of the chest, radiating to her left side with worsening on breathing and deep inspiration. It never really went away. She has also been having some nonproductive cough with hoarseness of voice and occasional palpitations. She reports that her heart rate went up to 130s and she took double doses of metoprolol(50 mg) thinking she might be in A. fib. The chest pain continues at rest and worsens on exertion. She denies any nausea, vomiting, abdominal pain, fever, chills, urinary or bowel symptoms. No recent sick contacts, travel history. Patient used to live in [place] and most of her cardiac workup was there. She did not have any recent stress test and does not remember the last cardiac cath results. She also reports during the last few days she had her pacemaker data sent over to the air pollution specialist Dr. Bejarano for reviewing. In the ED vitals showed a temperature of 97.2, pulse 97, blood pressure 110/60, saturating 95% on room air Labs showed a white count of 13.5 no left shift, H&H 10.9/33(around baseline), sodium 129(patient runs around 132), troponin 0.01. Chest x-ray showed patchy lower left consolidation and small pleural effusion questionable pneumonia. Nonspecific sub-centimeter noted opacity in the right midlung. Patient received nitroglycerin ointment with improvement in her symptoms and IV Tylenol. Allergies/Medications Allergies: Coded Allergies: Sulfa (Sulfonamide Antibiotics) (Severe, SWELLING 10/03/16) diphenhydramine (From BENADRYL) (Severe, MAKES CRAZY, HALLUCINATION 10/09/16) hydromorphone (From DILAUDID) (Severe, CONFUSION 10/09/16) morphine (Severe, SYNCOPE 10/03/16) oxycodone (From PERCOCET) (Severe, EXTREME VOMITING 10/09/16) JOSE Inhibitors (UNKNOWN PER PT 10/09/16) ARB-Angiotensin Receptor Antagonist (SWELLING 10/09/16) Home Med list Apixaban (Eliquis) 2.5 MG TABLET 1 TAB PO BID BLOOD THINNER (Reported) Aspirin (Aspirin*) 81 MG TAB.CHEW 1 TAB PO DAILY HEART HEALTH (Reported) Docusate Sodium (Stool Softener) 250 MG CAPSULE 1 TAB PO BID STOOL SOFTENER ( Reported) Metoprolol Tartrate 25 MG TABLET 1 TAB PO BID PRN PRN HEART RATE >120 ( Reported) Nifedipine (Nifedipine ER) 60 MG TAB.ER.24 1 TAB PO DAILY HEART (Reported) Omeprazole 20 MG CAPSULE.DR 1 CAP PO DAILY GERC (Reported) Sotalol HCl (Sotalol) 80 MG TABLET 1 TAB PO BID HEART (Reported) Spironolactone (Aldactone) 25 MG TABLET 1 TAB PO DAILY WATER RETENTION ( Reported) Temazepam 15 MG CAPSULE 1 CAP PO QPM SLEEP (Reported) Observation Initial Note - I have personally examined GODWIN GOMEZ on 10/09/16 at 1920. The disposition of GODWIN GOMEZ is uncertain at this time and before a determination can be made, she requires a period of observation for the following reasons [chest pain workup, telemetry monitoring, ruling out ACS, possible stress test, endoscopy, cardiology evaluation] Past History Travel History Traveled to [place] past 21 day No Medical History Neurological: NONE EENT: NONE Cardiovascular: AFIB, hypertension, pacemaker sleep apnea PERICARDITIS Respiratory: NONE Gastrointestinal: NONE Hepatic: NONE Renal: NONE Musculoskeletal: NONE Psychiatric: NONE Endocrine: NONE Blood Disorders: NONE Cancer(s): 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 EENTM: Reports: no symptoms. Cardiovascular: Reports: chest pain, palpitations. Respiratory: Reports: no symptoms. GI: Reports: no symptoms. Genitourinary: Reports: no symptoms. Musculoskeletal: Reports: no symptoms. Skin: Reports: no symptoms. Exam & Diagnostic Data Last 24 Hrs of Vital Signs/I&O Vital Signs Date Time Temp Pulse Resp B/P B/P Pulse O2 O2 Flow FiO2 Mean Ox Delivery Rate 10/09 1851 1244/62 10/09 1608 97.5 71 18 126/67 96 Room Air 10/09 1417 98.6 70 18 111/58 95 Room Air 10/09 1309 97.2 97 16 110/60 Room Air Intake & Output 10/09 1600 10/09 0800 10/09 0000 Intake Total Output Total Balance Patient 58.967 kg Weight Weight Reported by Patient Measurement Method Physical Exam General Appearance Alert, Oriented X3, Cooperative, Mild Distress Skin No Rashes, No Breakdown, No Significant Lesion Skin Temp/Moisture Exam: Warm/Dry Sepsis Skin Exam (color): Normal for Ethnicity HEENT Atraumatic, PERRLA, EOMI Neck Supple, No JVD Lymphatic Cervical nl Cardiovascular Regular Rate, Normal S1, Normal S2, No Murmurs Lungs diminished breath sounds bilaterally Abdomen Normal Bowel Sounds, Soft, No Tenderness Neurological Normal Gait, Normal Speech Extremities No Clubbing, No Cyanosis, No Edema Assessment/Plan Assessment: Patient is a 85-year-old woman with past medical history significant for atrial fibrillation status post failed ablation on elliquis, severe aortic stenosis with TAVR in May 2015 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 In the ED vitals showed a temperature of 97.2, pulse 97, blood pressure 110/60, saturating 95% on room air Labs showed a white count of 13.5 no left shift, H&H 10.9/33(around baseline), sodium 129(patient runs around 132), troponin 0.01. Chest x-ray showed patchy lower left consolidation and small pleural effusion questionable pneumonia. Nonspecific sub-centimeter noted opacity in the right midlung. CT neck negative for any acute findings for hoarseness Patient received nitroglycerin ointment with improvement in her symptoms and IV Tylenol. Assesment and Plan: #1 Atypical Chest Pain: Rule out ACS. Differentials could be unstable angina, GERD, musculoskeletal pain, pleuritic chest pain due to pneumonia. Unlikely to be an acute ischemic event since cardiac biomarkers and EKG negative despite pain being continuing for such a long time. -Place on observation on telemetry -Vitals per protocol -3 sets of troponin and EKG to rule out ACS. First troponin and EKG negative -Continue Nitro-Bid ointment for chest pain -Patient does have a high TANA score given significant cardiac risk factors, 2 episodes in the last 24 hours, and aspirin. We will discuss with air pollution specialist about starting the patient on heparin -Continue Protonix twice a day -Cardiology consult with Dr. Bejarano in a.m. -Consider GI consult if chest pain doesn't get better for a possible endoscopy -We will maintain patient nothing by mouth for a stress test/cardiac cath in a.m. -No need of echocardiogram, recent echocardiogram which showed normal ejection fraction with EF >65% with mild concentric left ventricular hypertrophy. #2.Paroxysmal A. fib with RVR -Patient was on sotalol and Eliquis -She takes metoprolol as needed and refuses to take it daily -Closely monitored on school lunch monitor #3 atypical pneumonia: Given consolidation seen on chest x-ray -Patient has slight white count with no bandemia -We'll start patient on IV ceftriaxone and azithromycin -Sputum and blood cultures -Continue oxygen as needed -TRC nebs [id number]\ #4 Hypertension and hyperlipidemia -Continue home medications Heart healthy diet Full code Mild pain pathway As Ranked By This Provider Problem List: 1. Tachycardia 2. Chest pain Qualifiers Chest pain type: unspecified Qualified Code: R07.9 - Chest pain, unspecified Core Measures/Miscellaneous Acute Coronary Syndrome ACS Diagnosis: Yes Last Known EF % 65 Cerebrovascular Accident CVA/TIA Diagnosis: No Congestive Heart Failure CHF Diagnosis: No VTE (View Protocol) VTE Risk Factors: Age > 40 [facility] prophylaxis d/t: No contraindications No VTE Pharm Prophylaxis d/t: No contraindications VTE Diagnosis: No VTE Type: NONE VTE Confirmed by (Test): NONE Sepsis (View Protocol) Severe Sepsis Present: No Septic Shock Septic Shock Present: No Miscellaneous Documentation Attending Case Discussed With: PASCALE XIONG MD Primary Care Physician: DELFINA FORDE MD Patient sees these Specialists dr bejarano Level of Patient Care: Telemetry NADEEN XIONG MD 10/09/16 2331: Attending MD Review Statement Attending Statement Attending MD Statement: examined this patient, discuss w/resident/PA/LADIES' LOCKER ROOM ATTENDANT, agreed w/resident/PA/LADIES' LOCKER ROOM ATTENDANT Attending Assessment/Plan: 85 yo F with h/o afib s/p ablation on eliquis, HTN, HF, Stage 3 CKD, severe s /p AVR (05/2015) c/b bradycardia requiring PPM and pericardial effusion s/p pericardial window and pleural effusion, was recently observed on Tele (10/03 10/04) for chest pain, ACS was ruled out and she was discharged to follow up with GI. She however returns today as her chest discomfort did not resolve, it is pleuritic in nature associated with cough productive of white phlegm, chills and nausea. Patient reports she has been taking tylenol every 4 hours but did not relieve the chest pain. C/o hoarseness in her voice, denies sore throat or PND. She denies dysphagia or odynophagia. Denies sick contacts, recently traveled from [place] to [place] (August 2016). She reports 2 episodes of palpitations, in the past week when she felt she was probably in Afib and took two doses of metoprolol (she uses this as needed only). VSS. Exam: AAO, in mild distress due to pain/ cough, dry mucous membranes, no pharyngeal erythema, Chest b/l reduced air entry, basilar rhonchi, Heart S1S2 regular, systolic murmur+, Abd soft, NT. Labs: WBC 13.5, H/H 10.9/33, Na 129, trop neg, normal TSH and free T4. EKG: SR, RBBB, no acute changes. CXR: patchy left lower lobe consolidation and small left pleural effusion. Right midlung opacity. CT neck: small b/l pleural effusions, otherwise unremarkable. Echo ( 2017): EF > 65%, mild LVH. 1. Left sided pleuritic chest pain, with productive cough, leukocytosis and CXR s/o LLL pneumonia likely community acquired. Tele 23 Obs, serial EKG and troponin to rule out ACS, no need to repeat Echo, consult Cardio (Dr. Bejarano), to review her pacemaker events. NPO for ?possible stress test. Panculture, urine legionella and strep Ag, TRC nebs, IV ceftriaxone and azithro, mucinex. Continue PPI and consider GI consult in AM. Patient reports that she is supposed to get a Sestamibi scan for evaluation of hypercalcemia, however her calcium levels today were under normal limits. DVT ppx Eliquis. Full code.
--- NOTE | 2016-10-09 18:45 | NUR ---
PT HAS BED 189-2
--- NOTE | 2016-10-09 19:22 | NUR ---
REPORT CALLED TO VERONICA ON TELE UNIT
[2016-10-09 20:04] VITALS: BP 138/70
[2016-10-09 23:31] VITALS: BP 110/70
[2016-10-10 04:12] LABS: ABSOLUTE BASOPHIL COUNT 0.1 /CUMM (0.0-0.2); ABSOLUTE EOSINOPHIL COUNT 0.1 /CUMM (0.0-0.7); ABSOLUTE GRANULOCYTE CT 8.1 /CUMM (1.4-6.5); ABSOLUTE LYMPH COUNT 1.2 /CUMM (1.2-3.4); BASOPHIL % 0.6 % (0.0-2.0); GRANULOCYTE % 77.5 % (42.2-75.2); HEMATOCRIT 28.5 % (37-47); MEAN CORPUSCULAR HGB 30.9 PG (27.0-31.0); MEAN CORPUSCULAR HGB CONC 33.7 G/DL (33.0-37.0); MEAN CORPUSCULAR VOLUME 91.8 FL (81.0-99.0); MEAN PLATELET VOLUME 8.4 FL (7.4-10.4); PLATELET COUNT 316 /CUMM (130-400); RBC DISTRIBUTION WIDTH 14.9 % (11.5-14.5); WHITE BLOOD CELL COUNT 10.5 /CUMM (4.8-10.8)
[2016-10-10 06:27] VITALS: BP 142/72
--- NOTE | 2016-10-10 09:04 | PN-Observation ---
MARGI FELIPE MD 10/10/16 0850: Observation Note Observation Note _ I have personally examined GODWIN GOMEZ. her disposition is uncertain at this time. 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 She was recently admitted to [facility] on October 03 for similar complaints of chest pain. She had an echo at that time that showed a normal left ventricular ejection fraction and only mild concentric left ventricular hypertrophy, serial troponins and ECGs were negative for any ACS. And she was discharged with assumed musculoskeletal chest pain and GERD with PPIs and NSAIDs and instructioned to follow-up with her PCP Problem List: 1. Chest pain Qualifiers Chest pain type: unspecified Qualified Code: R07.9 - Chest pain, unspecified 2. Dizziness 3. Cough Plan: This is a 85-year-old female patient with a second presentation to [place] with chest pain. Etiology is cardiac versus gastrointestinal versus musculoskeletal versus respiratory. #1. Atypical Chest Pain: Cardiac: * Unlikely to be an acute ischemic event since cardiac biomarkers and EKG negative despite pain being continuing for such a long time. * Patient placed in telemetry for observation. * All troponins and ekgs negative. * No need of echocardiogram, recent echocardiogram which showed normal ejection fraction with EF >65% with mild concentric left ventricular hypertrophy. * Continue Nitro-Bid ointment for chest pain * Patient is refusing stress test today that she was nothing by mouth for. She states that she feels weak and wants to eat. GI: * GI consult for possible endoscopy to rule out esophageal pathology and GERD which could be causing hoarseness and could have led to her aspiration pneumonia , cough and chest pain. * Patient is currently on Prilosec 20 mg by mouth daily * Potential for esophageal pathology, wait for Dr. Lopez to see patient, and pending this, start omeprazole PPI 40 mg twice a day, MiraLAX and GI cocktail * Head of bed up as per reflux protocol Pulmonary: * Patient is receiving Mucinex for cough * Some consolidation seen on chest x-ray * Patient has slight white count of 13.5 with no bandemia. Currently her WBCs are 10.5. * Continue patient on IV ceftriaxone and azithromycin for presumed community acquired pneumonia. * Obtain sputum culture and watch blood culture. Watch urine Legionella and strep pneumoniae test. * Continue oxygen as needed * TRC nebs #2. Paroxysmal A. 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 Hypertension and hyperlipidemia * Continue home medications spironolactone nifedipine aspirin #4. Hyponatremia * Patient was on a treatment to 129 on intake, currently is 135. Patient is receiving D5 normal saline at a rate of 75 mils per hour. #5. Disposition * Patient is to be changed from observation to inpatient because of developing pneumonia that needs IV antibiotics, GI evaluation, cardio evaluation. Patient is full code Patient is currently nothing by mouth, heart healthy diet DT prophylaxis with Eliquis DVT/Prophylaxis: pharmacological Subjective Follow-up For: chest pain Cough Dizziness Complaints: pain scale (0-10) Tele-Events Since Last Visit: Overnight patient was in normal sinus rhythm with a first-degree block rate 69- 72. She also was seen to have elevated T waves. Subjective: Patient was seen and examined laying in bed. She notes that she feels no better from when she came here yesterday. She states that she has weakness, dizziness, and a wheezing cough productive of sputum. She also complains of feeling weak and attributes this to not having eaten she has been admitted here. Review of Systems Constitutional: Reports: weakness. EENTM: Reports: no symptoms. Cardiovascular: Reports: chest pain (chest pain worse on inspiratio). Respiratory: Reports: cough, wheezing. Denies: short of breath. Gastrointestinal: Reports: no symptoms. Genitourinary: Reports: no symptoms. Musculoskeletal: Reports: no symptoms. Skin: Reports: no symptoms. Neurological/Psychological: Reports: no symptoms. Hematologic/Endocrine: Reports: no symptoms. Immunologic/Allergic: Reports: no symptoms. Comments: Patient's chest pain occurs at rest but is worse on inspiration. She notes that it is much worse when she has fits of coughing/ Objective Last 24 Hrs of Vital Signs/I&O Vital Signs Date Time Temp Pulse Resp B/P B/P Pulse O2 O2 Flow FiO2 Mean Ox Delivery Rate 10/10 0627 98.2 72 16 142/72 97 Nasal Cannula 10/10 0000 Room Air 10/09 2331 98.0 70 16 110/70 97 Room Air 10/09 2004 97.9 70 16 138/70 95 Room Air 10/09 1851 98.6 69 17 124/62 96 Room Air 10/09 1608 97.5 71 18 126/67 96 Room Air 10/09 1417 98.6 70 18 111/58 95 Room Air 10/09 1309 97.2 97 16 110/60 Room Air Intake & Output 10/10 1600 10/10 0800 10/10 0000 Intake Total 570 120 Output Total 700 Balance -130 120 Intake, IV 450 Intake, Oral 120 120 Output, Urine 700 Patient 130 lb Weight Physical Exam General Appearance: Alert, Oriented X3, Cooperative, Mild Distress Skin: No Rashes, No Breakdown, No Significant Lesion Skin Temp/Moisture Exam: Warm/Dry Sepsis Skin Exam (color): Normal for Ethnicity HEENT: Atraumatic, PERRLA, EOMI, Mucous Membr. moist/pink Neck: Supple Cardiovascular: Regular Rate, Normal S1, Normal S2, No Murmurs, Gallops, Rubs Lungs: Clear to Auscultation, Normal Air Movement Abdomen: Normal Bowel Sounds, Soft, No Tenderness Neurological: Normal Speech Extremities: No Edema Vascular: Normal Pulses Sepsis Peripheral Pulse Location: Radial Sepsis Peripheral Pulse Exam: Normal Other Physical Findings: Patient was only able to complete the lung exam by breathing very slowly as to not start coughing again. Current Medications: Current Medications Sig/Amaury Start time Last Medication Dose Route Stop Time Status Admin Acetaminophen 1,000 MG Q6P PRN 10/09 2100 AC N/A 1 UNIT IV Acetaminophen 1,000 MG Q6P PRN 10/09 1945 DC N/A 1 UNIT IV Acetaminophen 325 MG Q6P PRN 10/09 1845 AC PO Acetaminophen 0 .STK-MED ONE 10/09 1435 DC IV Acetaminophen 1,000 MG ONCE ONE 10/09 1345 DC 10/09 N/A 1 UNIT IV 10/09 1359 1448 Apixaban 2.5 MG BID 10/09 2200 AC 10/09 PO 2212 Aspirin 0 .STK-MED ONE 10/09 1918 DC PO Aspirin 81 MG DAILY 10/09 1830 AC PO Azithromycin 500 MG DAILY@10/09 1930 AC 10/09 Sodium Chloride 250 ML IV 2213 Ceftriaxone Sodium 1,000 MG DAILY@10/09 1930 AC 10/09 IV 2212 Dextrose/Sodium 1,000 ML Q13H 10/09 221 AC 10/09 Chloride IV 10/10 1114 2226 Guaifenesin 10 ML Q6P PRN 10/09 221 AC PO Guaifenesin 600 MG Q12 10/09 220 AC 10/09 PO 2215 Metoprolol Tartrate 25 MG BID PRN 10/10 0830 AC PO Morphine Sulfate 2 MG Q4 10/09 220 CAN IV Nifedipine 60 MG DAILY 10/10 1000 AC PO Nitroglycerin 0.5 GM Q6 PRN 10/09 1915 10/10 TOP 0326 Nitroglycerin 0 .STK-MED ONE 10/09 1436 [facility] Nitroglycerin 0.5 GM ONCE ONE 10/09 1345 DC 10/09 TOP 10/09 1346 1448 Omeprazole 20 MG DAILY 10/10 1000 AC PO Sotalol HCl 80 MG BID 10/09 2200 AC 10/09 PO 2212 Spironolactone 25 MG DAILY 10/10 1000 AC PO Temazepam 15 MG QPM 10/09 2199 AC 10/09 PO 2216 Last 24 Hrs of Labs/Mics: Laboratory Tests 10/10/16 0356: Anion Gap 9, Estimated GFR > 60, BUN/Creatinine Ratio 28.6 H, Troponin I 0.01, CBC w Diff NO MAN DIFF REQ, RBC 3.10 L, MCV 91.8, MCH 30.9, RDW 14.9 H, MPV 8.4, Gran % 77.5 H, Lymphocytes % 11.8 L, Monocytes % 9.1, Eosinophils % 1.0, Basophils % 0.6, Absolute Granulocytes 8.1 H, Absolute Lymphocytes 1.2, Absolute Monocytes 1.0 H, Absolute Eosinophils 0.1, Absolute Basophils 0.1, PUBS MCHC 33.7 10/09/16 2300: Troponin I 0.01 10/09/16 1420: Anion Gap 12, Estimated GFR > 60, BUN/Creatinine Ratio 21.3, Glucose 104 H, Calcium 9.3, Magnesium 2.0, Troponin I < 0.01, TSH 0.359, Free T4 1.52, CBC w Diff NO MAN DIFF REQ, RBC 3.57 L, MCV 92.3, MCH 30.6, RDW 14.6 H, MPV 8.3, Gran % 82.3 H, Lymphocytes % 8.9 L, Monocytes % 7.8, Eosinophils % 0.5, Basophils % 0.5, Absolute Granulocytes 11.1 H, Absolute Lymphocytes 1.2, Absolute Monocytes 1.1 H, Absolute Eosinophils 0.1, Absolute Basophils 0.1, PUBS MCHC 33.1 Microbiology 10/09 2202 URINE ROUT: Legionella Antigen - COLB 10/09 2202 URINE ROUT: Streptococcus pneumoniae Antigen (M - COLB 10/09 1944 BLOOD: Blood Culture - RECD 10/09 1934 BLOOD: Blood Culture - RECD 10/09 1904 LOWER RESP: Respiratory Culture - COLB 10/09 1904 LOWER RESP: Gram Stain - COLB CONSTANZA VAIL MD 10/10/162129: Attending Statement Pt examined & info reviewed Yes Agree w/findings/assess/plan Yes Additions/Exceptions to plan The patient was seen and discussed with house staff. Converted to full admission as she has pneumonia radiographically and persistent chest pain. I found her to have significant costochondral tenderness and feel that costochondritis is contributing to pain. I do believe she has reflux and hoarseness secondary to this. She does not desire an testing at present (declined stress test or EGD). Will give trial of 1 week of Meloxicam (OK for use with Eliquis on temporary basis), increase Omeprazole to 40 mg bid and add Carafate suspension tid. Continue anti-reflux regimen. Watch sodium level. Ambulate with PT/OT. Disussed with the patient and her family (daughter in room and son on phone). Documenting Attending CONSTANZA VAIL MD
[2016-10-10 14:39] VITALS: BP 108/58
--- NOTE | 2016-10-10 14:40 | Cons- Gastroenterology ---
General Information and HPI Consulting Request Date of Consult: 10/10/16 Requested By: CONSTANZA VAIL MD Reason for Consult: atypical chest pain. History of GERD. Source of Information: patient Exam Limitations: no limitations History of Present Illness: Ms. Hernandez is an 85 year old female with multiple medical problems including afib on eliquis, CHF, s/p AVR and pacemaker placement who presented to yesterday by ambulance with chest pain, SOB and weakness. She notes that she has been having symptoms since last week and she came to the ER last week and the ER ruled out cardiac sources of her symptoms and sent her home. Her symptoms became progressively worse over the course of the week so she came back to the ER last night and was ulimately admitted for observation. The pain is in the middle of her chest and she describes it as a stabbing pain that radiates to her left side of her chest, but not to her back, jaw or shoulder. She is on omeprazole at home for reflux and she doesn't have any heartburn on this. She is without any vomiting or dysphagia. She also has accompanying shortness of breath and a cough productive of clear sputum. She has chronic constipation that she takes miralax for with good benefit and this hasn't changed recently. She is without any rectal bleeding or melena. In the ER she had a chest x ray that showed a pleural effusion and she was started on antibiotics for a presumed pneumonia. Allergies/Medications Allergies: Coded Allergies: Sulfa (Sulfonamide Antibiotics) (Severe, SWELLING 10/03/16) diphenhydramine (From BENADRYL) (Severe, MAKES CRAZY, HALLUCINATION 10/09/16) hydromorphone (From DILAUDID) (Severe, CONFUSION 10/09/16) morphine (Severe, SYNCOPE 10/03/16) oxycodone (From PERCOCET) (Severe, EXTREME VOMITING 10/09/16) JOSE Inhibitors (UNKNOWN PER PT 10/09/16) ARB-Angiotensin Receptor Antagonist (SWELLING 10/09/16) Home Med List: Apixaban (Eliquis) 2.5 MG TABLET 1 TAB PO BID BLOOD THINNER (Reported) Aspirin (Aspirin*) 81 MG TAB.CHEW 1 TAB PO DAILY HEART HEALTH (Reported) Cefuroxime Axetil (Cefuroxime) 250 MG TABLET 1 TAB PO BID PNEUMONIA Docusate Sodium (Stool Softener) 250 MG CAPSULE 1 TAB PO BID STOOL SOFTENER ( Reported) Furosemide (Lasix) 20 MG TABLET 1 TAB PO DAILY WATER PILL Meloxicam 15 MG TABLET 1 TAB PO DAILY PAIN Metoprolol Tartrate 25 MG TABLET 1 TAB PO BID PRN PRN HEART RATE >120 ( Reported) Nifedipine (Nifedipine ER) 60 MG TAB.ER.24 1 TAB PO DAILY HEART (Reported) Omeprazole 40 MG CAPSULE.DR 1 CAP PO BID ACID REFLUX Sotalol HCl (Sotalol) 80 MG TABLET 1 TAB PO BID HEART (Reported) Spironolactone (Aldactone) 25 MG TABLET 1 TAB PO DAILY WATER RETENTION ( Reported) Sucralfate (Carafate) 1 GRAM/10 ML ORAL.SUSP 10 ML PO TID ACID REFLUX 1 hour before food Temazepam 15 MG CAPSULE 1 CAP PO QPM SLEEP (Reported) Current Medications: Current Medications Sig/Amaury Start time Last Medication Dose Route Stop Time Status Admin Acetaminophen 325 MG Q6P PRN 10/10 1415 AC PO Acetaminophen 1,000 MG Q6P PRN 10/09 2100 AC N/A 1 UNIT IV Acetaminophen 1,000 MG Q6P PRN 10/09 1945 DC N/A 1 UNIT IV Acetaminophen 325 MG Q6P PRN 10/09 1845 AC PO Apixaban 2.5 MG BID 10/09 2199 AC 10/10 PO 1249 Aspirin 0 .STK-MED ONE 10/09 1918 DC PO Aspirin 81 MG DAILY 10/09 1830 AC PO Azithromycin 500 MG DAILY@10/09 1930 AC 10/09 Sodium Chloride 250 ML IV 2213 Ceftriaxone Sodium 1,000 MG DAILY@10/09 1930 AC 10/09 IV 2212 Dextrose/Sodium 1,000 ML Q13H 10/09 2215 DC 10/09 Chloride IV 10/10 1114 2226 Guaifenesin 10 ML Q6P PRN 10/09 2215 AC PO Guaifenesin 600 MG Q12 10/09 2201 AC 10/10 PO 1249 Meloxicam 15 MG DAILY 10/10 1230 DC PO Meloxicam 15 MG DAILY 10/10 1230 DC PO Metoprolol Tartrate 25 MG BID PRN 10/10 0830 AC PO Morphine Sulfate 2 MG Q4 10/09 2200 CAN IV Nifedipine 60 MG DAILY 10/10 1000 AC 10/10 PO 1243 Nitroglycerin 0.5 GM Q6 PRN 10/09 1915 AC 10/10 TOP 0326 Omeprazole 40 MG BID 10/10 2200 AC PO Omeprazole 20 MG DAILY 10/10 1000 DC PO Sotalol HCl 80 MG BID 10/09 2200 AC 10/10 PO 1250 Spironolactone 25 MG DAILY 10/10 1000 AC 10/10 PO 1239 Sucralfate 1 GM TID 10/10 1222 AC PO Temazepam 15 MG QPM 10/09 2200 AC 10/09 PO 2216 Past History Travel History Traveled to [place] past 21 day No Medical History Blood Transfusion Hx: Yes Neurological: NONE EENT: NONE Cardiovascular: AFIB, hypertension, pacemaker sleep apnea PERICARDITIS Respiratory: NONE Gastrointestinal: NONE Hepatic: NONE Renal: NONE Musculoskeletal: NONE Psychiatric: NONE Endocrine: NONE Blood Disorders: NONE Cancer(s): NONE SL[employer] L[employer]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 EENTM: Denies: no symptoms. Cardiovascular: Reports: see HPI, chest pain. Respiratory: Denies: no symptoms. GI: Denies: see HPI. Genitourinary: Denies: no symptoms. Musculoskeletal: Denies: no symptoms. Skin: Denies: no symptoms. Neurological/Psychological: Denies: no symptoms. Hematologic/Endocrine: Denies: no symptoms. Immunologic/Allergic: Denies: no symptoms. All Other Systems: Reviewed and Negative Exam & Diagnostic Data Vital Signs and I&O Vital Signs Date Time Temp Pulse Resp B/P B/P Pulse O2 O2 Flow FiO2 Mean Ox Delivery Rate 10/10 1243 162/82 10/10 1102 Room Air 10/10 0627 98.2 72 16 142/72 97 Nasal Cannula 10/10 0000 Room Air 10/09 2331 98.0 70 16 110/70 97 Room Air 10/09 2004 97.9 70 16 138/70 95 Room Air 10/09 1851 98.6 69 17 124/62 96 Room Air 10/09 1608 97.5 71 18 126/67 96 Room Air Intake & Output 10/10 1600 10/10 0400 10/09 1600 10/09 0400 10/08 0400 Intake Total 570 120 Output Total 700 Balance -130 120 Intake, IV 450 Intake, Oral 120 120 Output, Urine 700 Patient 130 lb 130 lb Weight Weight Reported by Patient Measurement Method Physical Exam General Appearance: well developed/nourished, alert, awake, moderate distress Head: atraumatic, normal appearance Eyes: Bilateral: normal appearance. Ears, Nose, Throat: normal pharynx, normal ENT inspection Neck: normal inspection, supple, full range of motion Respiratory: no respiratory distress, wheezing, left sided pain to touch Cardiovascular: regular rate/rhythm, metalic first heart sound Gastrointestinal: normal bowel sounds, soft, non-tender, no organomegaly Rectal: deferred Back: normal inspection, normal range of motion Extremities: normal inspection, normal capillary refill, no edema Results Pertinent Lab Results: Laboratory Tests 10/10 10/09 0356 2300 Chemistry Sodium (137 - 145 mmol/L) 135 L Potassium (3.5 - 5.1 mmol/L) 4.5 Chloride (98 - 107 mmol/L) 100 Carbon Dioxide (22 - 30 mmol/L) 25 Anion Gap (5 - 16) 9 BUN (7 - 17 mg/dL) 20 H Creatinine (0.5 - 1.0 mg/dL) 0.7 Estimated GFR (>60 ml/min) > 60 BUN/Creatinine Ratio (7 - 25 %) 28.6 H Troponin I (< 0.11 ng/ml) 0.01 0.01 Hematology CBC w Diff NO MAN DIFF REQ WBC (4.8 - 10.8 /CUMM) 10.5 RBC (4.20 - 5.40 /CUMM) 3.10 L Hgb (12.0 - 16.0 G/DL) 9.6 L Hct (37 - 47 %) 28.5 L MCV (81.0 - 99.0 FL) 91.8 MCH (27.0 - 31.0 PG) 30.9 RDW (11.5 - 14.5 %) 14.9 H Plt Count (130 - 400 /CUMM) 316 MPV (7.4 - 10.4 FL) 8.4 Gran % (42.2 - 75.2 %) 77.5 H Lymphocytes % (20.5 - 51.1 %) 11.8 L Monocytes % (1.7 - 9.3 %) 9.1 Eosinophils % (0 - 5 %) 1.0 Basophils % (0.0 - 2.0 %) 0.6 Absolute Granulocytes (1.4 - 6.5 /CUMM) 8.1 H Absolute Lymphocytes (1.2 - 3.4 /CUMM) 1.2 Absolute Monocytes (0.10 - 0.60 /CUMM) 1.0 H Absolute Eosinophils (0.0 - 0.7 /CUMM) 0.1 Absolute Basophils (0.0 - 0.2 /CUMM) 0.1 PUBS MCHC (33.0 - 37.0 G/DL) 33.7 07/16 1420 Chemistry Sodium (137 - 145 mmol/L) 129 L Potassium (3.5 - 5.1 mmol/L) 4.9 Chloride (98 - 107 mmol/L) 96 L Carbon Dioxide (22 - 30 mmol/L) 22 Anion Gap (5 - 16) 12 BUN (7 - 17 mg/dL) 17 Creatinine (0.5 - 1.0 mg/dL) 0.8 Estimated GFR (>60 ml/min) > 60 BUN/Creatinine Ratio (7 - 25 %) 21.3 Glucose (65 - 99 mg/dL) 104 H Calcium (8.4 - 10.2 mg/dL) 9.3 Magnesium (1.6 - 2.3 mg/dL) 2.0 Troponin I (< 0.11 ng/ml) < 0.01 TSH (0.270 - 4.200 uIU/mL) 0.359 Free T4 (0.85 - 1.93 ng/dL) 1.52 Hematology CBC w Diff NO MAN DIFF REQ WBC (4.8 - 10.8 /CUMM) 13.5 H RBC (4.20 - 5.40 /CUMM) 3.57 L Hgb (12.0 - 16.0 G/DL) 10.9 L Hct (37 - 47 %) 33.0 L MCV (81.0 - 99.0 FL) 92.3 MCH (27.0 - 31.0 PG) 30.6 RDW (11.5 - 14.5 %) 14.6 H Plt Count (130 - 400 /CUMM) 361 MPV (7.4 - 10.4 FL) 8.3 Gran % (42.2 - 75.2 %) 82.3 H Lymphocytes % (20.5 - 51.1 %) 8.9 L Monocytes % (1.7 - 9.3 %) 7.8 Eosinophils % (0 - 5 %) 0.5 Basophils % (0.0 - 2.0 %) 0.5 Absolute Granulocytes (1.4 - 6.5 /CUMM) 11.1 H Absolute Lymphocytes (1.2 - 3.4 /CUMM) 1.2 Absolute Monocytes (0.10 - 0.60 /CUMM) 1.1 H Absolute Eosinophils (0.0 - 0.7 /CUMM) 0.1 Absolute Basophils (0.0 - 0.2 /CUMM) 0.1 PUBS MCHC (33.0 - 37.0 G/DL) 33.1 Imaging/Other Studies: FINDINGS: The lungs are well expanded. There is mild left lower lobe patchy opacification with mild blunting of the left posterior costophrenic angle. There is a subcentimeter patchy/nodular opacity peripherally overlying the right midlung which is nonspecific. No pulmonary edema or pneumothorax. Mediastinal contours have not significantly changed compared to prior exam. TAPVR stent and left pectoral cardiac device are demonstrated. No acute osseous abnormalities. Upper lumbar compression deformity redemonstrated. IMPRESSION: Findings suggest patchy left lower lobe consolidation and a small left pleural effusion, which may represent subtle pneumonia. Nonspecific subcentimeter nodular opacity peripherally over the right midlung. Attention on follow-up imaging recommended to ensure resolution. Assessment/Plan Assessment/Recommendations: Assessment: Ms. Hernandez is an 85 year old female with atypical chest pain which I suspect is primarily secondary to her pneumonia appreciated on chest x ray considering her reports of an accompanying cough and shortness of breath. As her pain is reproducible on physical exam, is not associated with eating and as she reports that her reflux is under good control on a ppi as an outpatient I feel it is unlikely to be from GERD or PUD. She notes having an EGD last year so as she is without any signs of overt GI bleeding or any other GI warning signs such as dysphagia or upper intentional weight loss I don't feel that needs to be repeated and it certainly doesn't need to be done as an inpatient. Recommendations: 1. Advance diet as tolearted 2. Continue oral bid ppi 3. Make efforts to get EGD report from last year for review (? done in [place] where she lives during the winter). 4. She should follow an antireflux regimen 5. Treatment of PNA as per primary care team. I will continue to follow this patient and make further recommendations based on her clinical course. Consult Acknowledgment - Thank you for your consult request.
--- NOTE | 2016-10-10 17:55 | Cons- Cardiology ---
General Information and HPI Consulting Request Date of Consult: 10/10/16 Requested By: CONSTANZA VAIL MD Reason for Consult: Chest pain Source of Information: patient, old records Exam Limitations: no limitations History of Present Illness: Godwin Gomez is a complicated 85-year-old female who has a lot of medical issues. She was in and out of the hospital from April through August 2015 in [place]. She started out apparently with severe pneumonia, had atrial fibrillation for an unknown period of time and was on amiodarone for some time, but this was discontinued. She at some point had an atrial fibrillation ablation procedure also. She has underlying hypertension. She had severe aortic stenosis documented in April and May 2015, and eventually had a transcatheter aortic valve replacement, which was done around the end of May 2015. I believe she had normal coronary arteries at the time of her evaluation for the TAVR. This apparently was complicated by bradycardia, and she had a pacemaker implanted on 06/24/2015. This is a [employer] Advisa, MRI conditional device. According to the device, she was in persistent atrial fibrillation throughout much of June 2015, but then subsequently she has been in sinus rhythm with minimal atrial fibrillation. Her TAVR was apparently complicated also by pericardial and/or pleural effusions, and she had pericardial window, according to her daughter, with residual wound in the subxiphoid area, She also fell and broke her hip after her TAVR and had that repaired in July 2015. She remains on Eliquis low dose given for her previous atrial fibrillation. She is no longer on amiodarone. She is on nifedipine for hypertension, spironolactone, and metoprolol. Godwin was doing well until 01/09/2016 when she presented to [place] emergency room complaining of palpitations and rapid heart beat. Her EKG showed a tachycardia with a rate of 111; the underlying mechanism is uncertain, possibly an atrial tachycardia or an atypical atrial flutter. According to her device which I interrogated she showed a spike of atrial fibrillation at that time, so this was likely an atrial arrhythmia. She was advised to double up on her metoprolol to 50 mg twice a day. Her chest x-ray did not show any congestive heart failure at that time. At the time of 2015 visit, she was doing okay. She was not in atrial fibrillation, and her blood pressure was good. Subsequently, she continued to do well. She was getting stronger and actually is wanted to return to [place] in February. She remained on Eliquis 2.5 mg twice a day, metoprolol 50 mg twice a day, nifedipine 60 mg daily, Aldactone 50 mg daily, and temazepam as needed. She had an echo in January 2106 which showed good LV function and good function of her new aortic valve. Godwin actually did go to [place] where she spent most of the winter. 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 We don't have those records at this point. She states that she recovered from this pretty well and had no problems traveling back to [place]. She was then doing well until 10/03/16 when she began noticing a vague heaviness in the chest and then a very brief sharp chest pain when she took a deep breath. This occurred several times and finally she came here for this complaint. She denied any exertional chest pain or shortness of breath. Her workup during that hospitalization was negative for cardiac ischemia. A repeat echocardiogram again documented good function of her valve and normal left ventricular systolic function. Her troponins were negative 4. CTA was negative for pulmonary embolism. She was then discharged on pain medication. She returns now with recurrent left sided somewhat pleuritic chest pain, nonexertional. Now she has an x-ray compatible with early right-sided pneumonia. Her EKGs shown intermittent right bundle branch block which is not a new finding for her. She also has intermittent atrial pacing. The patient also noticed that her pulse rate was high over the past 2 days and she took some supplemental metoprolol. She thinks she was in atrial fibrillation transiently. Allergies/Medications Allergies: Coded Allergies: Sulfa (Sulfonamide Antibiotics) (Severe, SWELLING 10/03/16) diphenhydramine (From BENADRYL) (Severe, MAKES CRAZY, HALLUCINATION 10/09/16) hydromorphone (From DILAUDID) (Severe, CONFUSION 10/09/16) morphine (Severe, SYNCOPE 10/03/16) oxycodone (From PERCOCET) (Severe, EXTREME VOMITING 10/09/16) JOSE Inhibitors (UNKNOWN PER PT 10/09/16) ARB-Angiotensin Receptor Antagonist (SWELLING 10/09/16) Home Med List: Apixaban (Eliquis) 2.5 MG TABLET 1 TAB PO BID BLOOD THINNER (Reported) Aspirin (Aspirin*) 81 MG TAB.CHEW 1 TAB PO DAILY HEART HEALTH (Reported) Docusate Sodium (Stool Softener) 250 MG CAPSULE 1 TAB PO BID STOOL SOFTENER ( Reported) Metoprolol Tartrate 25 MG TABLET 1 TAB PO BID PRN PRN HEART RATE >120 ( Reported) Nifedipine (Nifedipine ER) 60 MG TAB.ER.24 1 TAB PO DAILY HEART (Reported) Omeprazole 20 MG CAPSULE.DR 1 CAP PO DAILY GERC (Reported) Sotalol HCl (Sotalol) 80 MG TABLET 1 TAB PO BID HEART (Reported) Spironolactone (Aldactone) 25 MG TABLET 1 TAB PO DAILY WATER RETENTION ( Reported) Temazepam 15 MG CAPSULE 1 CAP PO QPM SLEEP (Reported) Current Medications: Current Medications Sig/Amaury Start time Last Medication Dose Route Stop Time Status Admin Acetaminophen 325 MG Q6P PRN 10/10 1415 AC PO Acetaminophen 1,000 MG Q6P PRN 10/09 2100 AC N/A 1 UNIT IV Acetaminophen 1,000 MG Q6P PRN 10/09 1945 DC N/A 1 UNIT IV Acetaminophen 325 MG Q6P PRN 10/09 1845 AC PO Apixaban 2.5 MG BID 10/090 AC 10/10 PO 1249 Aspirin 0 .STK-MED ONE 10/09 1918 DC PO Aspirin 81 MG DAILY 10/09 1830 AC 10/10 PO 1648 Azithromycin 500 MG DAILY@10/09 1930 AC 10/09 Sodium Chloride 250 ML IV 2213 Ceftriaxone Sodium 1,000 MG DAILY@10/09 1930 AC 10/09 IV 2212 Dextrose/Sodium 1,000 ML Q13H 10/09 2215 DC 10/09 Chloride IV 10/10 1114 2226 Guaifenesin 10 ML Q6P PRN 10/09 2215 AC PO Guaifenesin 600 MG Q12 10/09 2201 AC 10/10 PO 1249 Meloxicam 15 MG DAILY@1800 10/10 1800 AC PO Meloxicam 15 MG DAILY 10/10 1230 DC PO Meloxicam 15 MG DAILY 10/10 1230 DC PO Metoprolol Tartrate 25 MG BID PRN 10/10 0830 AC PO Morphine Sulfate 2 MG Q4 10/09 2200 CAN IV Nifedipine 60 MG DAILY 10/10 1000 AC 10/10 PO 1243 Nitroglycerin 0.5 GM Q6 PRN 10/09 1915 AC 10/10 TOP 0326 Omeprazole 40 MG BID 10/10 2200 AC PO Omeprazole 20 MG DAILY 10/10 1000 DC PO Sotalol HCl 80 MG BID 10/09 2200 AC 10/10 PO 1250 Spironolactone 25 MG DAILY 10/10 1000 AC 10/10 PO 1239 Sucralfate 1 GM TID 10/10 1600 AC 10/10 PO 1650 Sucralfate 1 GM TID 10/10 1222 DC PO Temazepam 15 MG QPM 10/09 2200 AC 10/09 PO 2216 Review of Systems Review of Systems: She has intermittent palpitations as well as chest pain Past History Travel History Traveled to [place] past 21 day No Medical History Blood Transfusion Hx: Yes Neurological: dizziness, vertigo EENT: allergies, hearing loss, CATARACTS 2014 Cardiovascular: AFIB, hypertension, pacemaker sleep apnea PERICARDITIS WITH WINDOW TAVR - BOVINE Respiratory: obstructive sleep apnea Gastrointestinal: GERD, DIVERTICUL MECKELS Hepatic: NONE Renal: CKD III - Musculoskeletal: L3/l4/l5 fusion Psychiatric: NONE Endocrine: "Parathyroid" - sestamibi scan pending "VIT D" "b12" Blood Disorders: NONE Cancer(s): NONE INVASIVE CARDIOLOGIST/Reproductive: "hysterectomy 1989" Surgical History Surgical History: appendectomy, hysterectomy, avr, pacemaker Diverticular surgery (08/2016), Femoral screw (2015), Back surgery Psychosocial History Where Do You Live? Home Services at Home: None Smoking Status: Never Smoked Exam & Diagnostic Data Vital Signs and I&O Vital Signs Date Time Temp Pulse Resp B/P B/P Pulse O2 O2 Flow FiO2 Mean Ox Delivery Rate 10/10 1439 99.6 69 18 108/58 96 10/10 1243 162/82 10/10 1102 Room Air 10/10 0627 98.2 72 16 142/72 97 Nasal Cannula 10/10 0000 Room Air 10/09 2331 98.0 70 16 110/70 97 Room Air 10/09 2004 97.9 70 16 138/70 95 Room Air 10/09 1851 98.6 69 17 124/62 96 Room Air Intake & Output 10/10 1600 10/10 0800 10/10 0000 10/09 1600 10/09 0810/09 0000 Intake Total 1090 570 120 Output Total 800 700 Balance 290 -130 120 Intake, IV 450 450 Intake, Oral 640 120 120 Number 0 Bowel Movements Output, Urine 800 700 Patient 130 lb 130 lb 130 lb Weight Weight Estimated Reported by Patient Measurement Method Physical Exam: She is in no distress but is a little bit uncomfortable from chest pain with deep breathing HEENT exam is normal Neck veins not distended Carotids normal Chest a few basilar crackles are heard posteriorly bilaterally Heart reveals a soft systolic ejection murmur at the base. The rhythm is regular Abdomen benign Extremities no edema good pulses Labs/Luis Manuel Results: Laboratory Tests 10/10 10/09 0356 2300 Chemistry Sodium (137 - 145 mmol/L) 135 L Potassium (3.5 - 5.1 mmol/L) 4.5 Chloride (98 - 107 mmol/L) 100 Carbon Dioxide (22 - 30 mmol/L) 25 Anion Gap (5 - 16) 9 BUN (7 - 17 mg/dL) 20 H Creatinine (0.5 - 1.0 mg/dL) 0.7 Estimated GFR (>60 ml/min) > 60 BUN/Creatinine Ratio (7 - 25 %) 28.6 H Troponin I (< 0.11 ng/ml) 0.01 0.01 Hematology CBC w Diff NO MAN DIFF REQ WBC (4.8 - 10.8 /CUMM) 10.5 RBC (4.20 - 5.40 /CUMM) 3.10 L Hgb (12.0 - 16.0 G/DL) 9.6 L Hct (37 - 47 %) 28.5 L MCV (81.0 - 99.0 FL) 91.8 MCH (27.0 - 31.0 PG) 30.9 RDW (11.5 - 14.5 %) 14.9 H Plt Count (130 - 400 /CUMM) 316 MPV (7.4 - 10.4 FL) 8.4 Gran % (42.2 - 75.2 %) 77.5 H Lymphocytes % (20.5 - 51.1 %) 11.8 L Monocytes % (1.7 - 9.3 %) 9.1 Eosinophils % (0 - 5 %) 1.0 Basophils % (0.0 - 2.0 %) 0.6 Absolute Granulocytes (1.4 - 6.5 /CUMM) 8.1 H Absolute Lymphocytes (1.2 - 3.4 /CUMM) 1.2 Absolute Monocytes (0.10 - 0.60 /CUMM) 1.0 H Absolute Eosinophils (0.0 - 0.7 /CUMM) 0.1 Absolute Basophils (0.0 - 0.2 /CUMM) 0.1 PUBS MCHC (33.0 - 37.0 G/DL) 33.7 07/16 1420 Chemistry Sodium (137 - 145 mmol/L) 129 L Potassium (3.5 - 5.1 mmol/L) 4.9 Chloride (98 - 107 mmol/L) 96 L Carbon Dioxide (22 - 30 mmol/L) 22 Anion Gap (5 - 16) 12 BUN (7 - 17 mg/dL) 17 Creatinine (0.5 - 1.0 mg/dL) 0.8 Estimated GFR (>60 ml/min) > 60 BUN/Creatinine Ratio (7 - 25 %) 21.3 Glucose (65 - 99 mg/dL) 104 H Calcium (8.4 - 10.2 mg/dL) 9.3 Magnesium (1.6 - 2.3 mg/dL) 2.0 Troponin I (< 0.11 ng/ml) < 0.01 TSH (0.270 - 4.200 uIU/mL) 0.359 Free T4 (0.85 - 1.93 ng/dL) 1.52 Hematology CBC w Diff NO MAN DIFF REQ WBC (4.8 - 10.8 /CUMM) 13.5 H RBC (4.20 - 5.40 /CUMM) 3.57 L Hgb (12.0 - 16.0 G/DL) 10.9 L Hct (37 - 47 %) 33.0 L MCV (81.0 - 99.0 FL) 92.3 MCH (27.0 - 31.0 PG) 30.6 RDW (11.5 - 14.5 %) 14.6 H Plt Count (130 - 400 /CUMM) 361 MPV (7.4 - 10.4 FL) 8.3 Gran % (42.2 - 75.2 %) 82.3 H Lymphocytes % (20.5 - 51.1 %) 8.9 L Monocytes % (1.7 - 9.3 %) 7.8 Eosinophils % (0 - 5 %) 0.5 Basophils % (0.0 - 2.0 %) 0.5 Absolute Granulocytes (1.4 - 6.5 /CUMM) 11.1 H Absolute Lymphocytes (1.2 - 3.4 /CUMM) 1.2 Absolute Monocytes (0.10 - 0.60 /CUMM) 1.1 H Absolute Eosinophils (0.0 - 0.7 /CUMM) 0.1 Absolute Basophils (0.0 - 0.2 /CUMM) 0.1 PUBS MCHC (33.0 - 37.0 G/DL) 33.1 Diagnostic Data EKG Results 2017 at rate of 80, low voltage throughout, right bundle branch block, diffuse T -wave inversions in the precordial leads. EKG on October 09 at 2222 hrs. shows atrial pacing and ventricular sensing at a rate of 69 with some nonspecific T- wave changes. Repeat EKG on October 10 at 3:33 AM shows atrial pacing at a rate of 72 with right bundle branch block pattern and T-wave inversions anteriorly. CXR Results PATIENT: GODWIN GOMEZ PRESENT AGE: 85 PATIENT ACCOUNT NO: [id number] : 31 LOCATION: [facility] ORDERING PHYSICIAN: LUIS FERNANDO BARBOUR MD SERVICE DATE: 10/09/166 EXAM TYPE: RAD - XRY-CHEST XRAY, PA AND LATERAL EXAMINATION: XR CHEST CLINICAL INFORMATION: Chest pressure, dyspnea, cough. COMPARISON: Chest radiography 01/09/2016. TECHNIQUE: 2 views of the chest were obtained. FINDINGS: The lungs are well expanded. There is mild left lower lobe patchy opacification with mild blunting of the left posterior costophrenic angle. There is a subcentimeter patchy/nodular opacity peripherally overlying the right midlung which is nonspecific. No pulmonary edema or pneumothorax. Mediastinal contours have not significantly changed compared to prior exam. TAPVR stent and left pectoral cardiac device are demonstrated. No acute osseous abnormalities. Upper lumbar compression deformity redemonstrated. IMPRESSION: Findings suggest patchy left lower lobe consolidation and a small left pleural effusion, which may represent subtle pneumonia. Nonspecific subcentimeter nodular opacity peripherally over the right midlung. Attention on follow-up imaging recommended to ensure resolution. DICTATED BY: DARRIUS MONTAÑO MD DATE/TIME DICTATED:10/09/161358 COLOR CHECKER ROVING OR YARN:QUEENIE DATE/TIME TRANSCRIBED:10/09/161358 CONFIDENTIAL, DO NOT COPY WITHOUT APPROPRIATE AUTHORIZATION. <Electronically signed in Other Vendor System> SIGNED BY: DARRIUS MONTAÑO MD 10/09/16 0113 Assessment/Plan Assessment/Plan This patient returns with recurrent chest pain. An acute cardiac cause has been ruled out. GI has opined that there is no GI etiology. There is no reason to believe she has underlying coronary disease or ischemic pain. I believe she had normal coronaries at that time of her TAVR evaluation but I will review her old records to confirm this. There is no indication for stress test or coronary angiography at this time. Most likely her discomfort is from her lungs with probable early pneumonia. I would recommend pulmonary evaluation and possibly a noncontrast chest CT to elucidate the chest x-ray findings. I think she can be discontinued from telemetry at this time. I will interrogate her pacemaker to see if there is any evidence of recent mode switch activity i.e. atrial fibrillation. Otherwise I would continue her medications the same and treat her pain symptomatically. Consult Acknowledgment - Thank you for your consult request.
[2016-10-10 22:11] VITALS: BP 120/70
--- NOTE | 2016-10-10 22:16 | CT SCAN REPORT ---
EXAMINATION: CT CHEST WITHOUT CONTRAST CLINICAL INFORMATION: Atypical chest pain. COMPARISON: CTA of chest 10/03/2016. Chest x-ray 10/09/2016 TECHNIQUE: Multidetector volumetric CT imaging of the chest was done. Axial MIP volume rendering provided. Sagittal and coronal reformatted images were obtained. DLP: 187.49 mGy-cm FINDINGS: LUNGS: Linear scarring and subsegmental atelectasis at both lung bases greater on left than right. Linear subsegmental atelectasis at the superior segment left lower lobe has increased slightly since exam of 10/03/2016. 5 mm nodular opacity in right middle lobe, axial image 32 (3). Groundglass opacity in right upper lobe measuring 5 mm image 12 (3). Pleural thickening at the anterior right middle lobe and minor fissure. Pleural-parenchymal thickening at the right lower lobe associated with the major fissure, sagittal image 73. Reticular opacities in the subpleural lung right upper lobe axial image 163 (5). No acute infiltrate. Central bronchial airways are open. No bronchiectasis. MEDIASTINUM: Pacemaker lead in right atrium and right ventricle. TAPVR and proximal aorta. There is mediastinal lymph nodes which are borderline in size in the AP window and pretracheal retrovascular space similar to prior CT. No bulky lymphadenopathy. PLEURA: There are small bilateral pleural effusions layering dependently. Larger in volume on left than right. These pleural effusions are new since the CT of chest of 10/03/2016. AXILLA: No lymphadenopathy. UPPER ABDOMEN: Unremarkable. OSSEOUS STRUCTURES: There is comminuted severe compression fracture of L1 unchanged since prior study. IMPRESSION: New small bilateral pleural effusions since CAT scan of 10/03/2016. Increasing subsegmental atelectasis superior segment of left lower lobe.
[2016-10-11 07:17] VITALS: BP 132/66
--- NOTE | 2016-10-11 13:28 | PN- Cardiology ---
Subjective Subjective: The patient is feeling a little better today, less short of breath and less pain. Her CAT scan of the chest documented small pleural effusions. There is also some atelectasis but no obvious pneumonia. It is possible she has subclinical congestive heart failure on a diastolic basis accounting for her pleural effusions and symptoms. Objective Vital Signs and I&Os Vital Signs Date Time Temp Pulse Resp B/P B/P Pulse O2 O2 Flow FiO2 Mean Ox Delivery Rate 10/11 0932 71 118/50 10/11 0717 98.8 71 18 132/66 97 Room Air 10/10 2211 98.4 74 14 120/70 97 Room Air 10/10 1439 99.6 69 18 108/58 96 Intake & Output 10/11 0800 10/11 0000 10/10 1600 10/10 0800 10/10 0000 Intake Total 100 1090 570 120 Output Total 400 1200 800 700 Balance -300 -1200 290 -130 120 Intake, IV 450 450 Intake, Oral 100 640 120 120 Number 0 Bowel Movements Output, Urine 400 1200 800 700 Patient 130 lb 130 lb 130 lb Weight Weight Estimated Measurement Method Physical Exam: HEENT exam is normal Chest reveals a few rales in the bases Heart reveals regular rhythm and a soft systolic ejection murmur at the base Extremities no edema Current Medications: Current Medications Sig/Amaury Start time Last Medication Dose Route Stop Time Status Admin Acetaminophen 325 MG Q6P PRN 10/10 1415 AC PO Acetaminophen 1,000 MG Q6P PRN 10/09 2100 AC N/A 1 UNIT IV Acetaminophen 325 MG Q6P PRN 10/09 1845 AC PO Apixaban 2.5 MG BID 10/09 2199 AC 10/11 PO 1023 Aspirin 81 MG DAILY 10/09 1830 AC 10/11 PO 1025 Azithromycin 500 MG DAILY@10/09 193 AC 10/10 Sodium Chloride 250 ML IV 2000 Ceftriaxone Sodium 1,000 MG DAILY@10/09 193 AC 10/10 IV 2000 Guaifenesin 10 ML Q6P PRN 10/09 2215 AC PO Guaifenesin 600 MG Q12 10/09 2200 AC 10/11 PO 0932 Meloxicam 15 MG DAILY@1800 10/10 1800 AC 10/10 PO 2055 Meloxicam 15 MG DAILY 10/10 1230 DC PO Meloxicam 15 MG DAILY 10/10 1230 DC PO Metoprolol Tartrate 25 MG BID PRN 10/10 0830 AC PO Nifedipine 60 MG DAILY 10/10 1000 AC 10/11 PO 0932 Nitroglycerin 0.5 GM Q6 PRN 10/09 1915 AC 10/10 TOP 0326 Omeprazole 40 MG BID 10/10 2200 AC 10/11 PO 0932 Sotalol HCl 80 MG BID 10/09 2200 AC 10/11 PO 0932 Spironolactone 25 MG DAILY 10/10 1000 AC 10/11 PO 0932 Sucralfate 1 GM TID 10/10 1600 AC 10/11 PO 0932 Sucralfate 1 GM TID 10/10 1222 DC PO Temazepam 15 MG QPM 10/09 2199 AC 10/10 PO 7 Results Last 48 Hrs of Labs/Mics: Laboratory Tests 10/10/16 0356: Anion Gap 9, Estimated GFR > 60, BUN/Creatinine Ratio 28.6 H, Troponin I 0.01, CBC w Diff NO MAN DIFF REQ, RBC 3.10 L, MCV 91.8, MCH 30.9, RDW 14.9 H, MPV 8.4, Gran % 77.5 H, Lymphocytes % 11.8 L, Monocytes % 9.1, Eosinophils % 1.0, Basophils % 0.6, Absolute Granulocytes 8.1 H, Absolute Lymphocytes 1.2, Absolute Monocytes 1.0 H, Absolute Eosinophils 0.1, Absolute Basophils 0.1, PUBS MCHC 33.7 10/09/16 2300: Troponin I 0.01 10/09/16 1420: Anion Gap 12, Estimated GFR > 60, BUN/Creatinine Ratio 21.3, Glucose 104 H, Calcium 9.3, Magnesium 2.0, Troponin I < 0.01, TSH 0.359, Free T4 1.52, CBC w Diff NO MAN DIFF REQ, RBC 3.57 L, MCV 92.3, MCH 30.6, RDW 14.6 H, MPV 8.3, Gran % 82.3 H, Lymphocytes % 8.9 L, Monocytes % 7.8, Eosinophils % 0.5, Basophils % 0.5, Absolute Granulocytes 11.1 H, Absolute Lymphocytes 1.2, Absolute Monocytes 1.1 H, Absolute Eosinophils 0.1, Absolute Basophils 0.1, PUBS MCHC 33.1 Recent Imaging Studies: IMPRESSION: New small bilateral pleural effusions since CAT scan of 10/03/2016. Increasing subsegmental atelectasis superior segment of left lower lobe. DICTATED BY: MAYTE URRUTIA MD DATE/TIME DICTATED:10/10/162151 BIOMEDICAL EQUIPMENT TECH:QUEENIE DATE/TIME TRANSCRIBED:10/10/162151 CONFIDENTIAL, DO NOT COPY WITHOUT APPROPRIATE AUTHORIZATION. <Electronically signed in Other Vendor System> SIGNED BY: MAYTE URRUTIA MD 10/10/16 8864 Assessment/Plan Assessment/Plan Ebony is feeling a little better. I think it is possible she has subclinical diastolic congestive heart failure accounting for her symptoms and would recommend starting her on Lasix, with one IV dose and then 20 mg orally daily and continue this on discharge. Continue telemetry? Not applicable
[2016-10-11 14:37] VITALS: BP 122/58
--- NOTE | 2016-10-11 16:52 | PN- Housestaff ---
MATTEO GARVEY,MARGI 10/11/16 1637: Subjective Follow-up For: chest pain dizziness cough Complaints: no complaints Tele-Events Since Last Visit: Skin is normal sinus rhythm with bundle branch block and PVCs rate 69-71. Her device is being interrogated in [place] and is stating that the rate is A. fib. Subjective: The patient states that she is feeling better. She is in better spirits. She does state that she has some chest pain 4 out of 10. She notes that she has pain with meloxicam a headache but notes that it is worth it as it has decreased her chest pain. Review of Systems Constitutional: Reports: weakness. EENTM: Reports: no symptoms. Cardiovascular: Reports: chest pain. Respiratory: Reports: cough, short of breath. Genitourinary: Reports: no symptoms. Musculoskeletal: Reports: no symptoms. Skin: Reports: no symptoms. Neurological/Psychological: Reports: anxiety. Objective Last 24 Hrs of Vital Signs/I&O Vital Signs Date Time Temp Pulse Resp B/P B/P Pulse O2 O2 Flow FiO2 Mean Ox Delivery Rate 10/11 1600 96 Room Air Room Air 10/11 1437 98.2 70 18 122/58 94 Room Air 10/11 0932 71 118/50 10/11 0717 98.8 71 18 132/66 97 Room Air 10/10 2211 98.4 74 14 120/70 97 Room Air Intake & Output 10/11 1600 10/11 0800 10/11 0000 Intake Total 480 100 Output Total 888 118 8242 Balance -20 -300 -1200 Intake, Oral 480 100 Output, Urine [phone] Patient 130 lb Weight Physical Exam General Appearance: Alert, Oriented X3, Cooperative, Mild Distress Skin: No Rashes, No Breakdown, No Significant Lesion Skin Temp/Moisture Exam: Warm/Dry Sepsis Skin Exam (color): Normal for Ethnicity HEENT: Atraumatic, EOMI, Mucous Membr. moist/pink Neck: Supple Cardiovascular: Regular Rate, Normal S1, Normal S2, No Murmurs, Gallops, Rubs Lungs: Clear to Auscultation, Normal Air Movement Abdomen: Normal Bowel Sounds, Soft, No Tenderness Neurological: Normal Speech Extremities: No Edema, Normal Pulses, No Tenderness/Swelling Vascular: Normal Pulses, Pulses Symmetrical Current Medications: Current Medications Sig/Amaury Start time Last Medication Dose Route Stop Time Status Admin Acetaminophen 325 MG Q6P PRN 10/10 1415 AC PO Acetaminophen 1,000 MG Q6P PRN 10/09 2100 AC N/A 1 UNIT IV Acetaminophen 325 MG Q6P PRN 10/09 1845 AC PO Apixaban 2.5 MG BID 10/09 2200 AC 10/11 PO 1023 Aspirin 81 MG DAILY 10/09 1830 AC 10/11 PO 1025 Azithromycin 500 MG DAILY@10/09 1930 AC 10/10 Sodium Chloride 250 ML IV 2000 Ceftriaxone Sodium 1,000 MG DAILY@10/09 1930 10/10 IV 2000 Furosemide 20 MG DAILY 10/12 1000 AC PO Furosemide 20 MG BOLUS ONE 10/11 1345 DC 10/11 IV PUSH 10/11 1346 1503 Guaifenesin 10 ML Q6P PRN 10/09 2215 AC PO Guaifenesin 600 MG Q12 10/09 2201 10/11 PO 0932 Meloxicam 15 MG DAILY@1800 10/10 1800 AC 10/11 PO 1730 Metoprolol Tartrate 25 MG BID PRN 10/10 0830 AC PO Nifedipine 60 MG DAILY 10/10 1000 AC 10/11 PO 0932 Nitroglycerin 0.5 GM Q6 PRN 10/09 1915 AC 10/10 TOP 0326 Omeprazole 40 MG BID 10/10 2200 10/11 PO 0932 Patient Medication 1 ED .STK-MED ONE 10/11 1412 FL Teaching ED 10/11 1413 Sotalol HCl 80 MG BID 10/09 2200 10/11 PO 0932 Spironolactone 25 MG DAILY 10/10 1000 AC 10/11 PO 0932 Sucralfate 1 GM TID 10/10 1600 10/11 PO 1613 Temazepam 15 MG QPM 10/09 2200 10/10 PO 2117 Assessment/Plan Assessment: Patient is a 85-year-old woman with past medical history significant for atrial fibrillation status post failed ablation on elliquis, severe aortic stenosis with TAVR in May 2015 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 She was recently admitted to [facility] on October 03 for similar complaints of chest pain. She had an echo at that time that showed a normal left ventricular ejection fraction and only mild concentric left ventricular hypertrophy, serial troponins and ECGs were negative for any ACS. And she was discharged with assumed musculoskeletal chest pain and GERD with PPIs and NSAIDs and instructioned to follow-up with her PCP This is a 85-year-old female patient with a second presentation to [place] with chest pain. Etiology is cardiac versus gastrointestinal versus musculoskeletal versus respiratory. #1. Atypical Chest Pain: Cardiac: * Unlikely to be an acute ischemic event since cardiac biomarkers and EKG negative despite pain being continuing for such a long time. * Patient placed in telemetry for observation. * All troponins and ekgs negative. * No need of echocardiogram, recent echocardiogram which showed normal ejection fraction with EF >65% with mild concentric left ventricular hypertrophy. * Continue Nitro-Bid ointment for chest pain * Patient refused stress test yesterday. * As per cardiology today Dr. Bejarano believes that she might have subclinical diastolic congestive heart failure accounting for her symptoms and recommend starting her on Lasix 1 IV dose and then 20 mg oral daily continued on discharge. GI: * GI consult for possible endoscopy to rule out esophageal pathology and GERD which could be causing hoarseness and could have led to her aspiration pneumonia , cough and chest pain. * Patient is currently on Prilosec 20 mg by mouth daily * Potential for esophageal pathology, wait for Dr. Lopez to see patient, and pending this, start omeprazole PPI 40 mg twice a day, MiraLAX and GI cocktail * Head of bed up as per reflux protocol Pulmonary: * Patient is receiving Mucinex for cough * Some consolidation seen on chest x-ray * Patient has slight white count of 13.5 with no bandemia. Currently her WBCs are 10.5. * Continue patient on IV ceftriaxone and azithromycin for presumed community acquired pneumonia. * Obtain sputum culture and watch blood culture. Watch urine Legionella and strep pneumoniae test. * Continue oxygen as needed * Encouraged patient to do incentive spirometry * [facility] nebs #2. Paroxysmal A. fib with RVR * Patient was on sotalol and Eliquis * She takes metoprolol as needed * As per Dr. Bejarano telemetry monitoring has been DC'd #3. Hypertension and hyperlipidemia * Continue home medications spironolactone nifedipine aspirin #4. Hyponatremia * Patient was on a treatment to 129 on intake, currently is 135. Patient is receiving D5 normal saline at a rate of 75 mils per hour. #5. Disposition * Patient is to be changed from observation to inpatient because of developing pneumonia that needs IV antibiotics, GI evaluation, cardio evaluation. Patient is full code Patient is currently nothing by mouth, heart healthy diet DT prophylaxis with Eliquis Problem List: 1. Dizziness 2. Cough 3. Chest pain Pain Ratin Pain Location: Central chest Pain Goal: Pain 4 or less Pain Plan: Meloxicam and Tylenol and sucralfate and Nitro-Bid Tomorrow's Labs & Rationales: CONSTANZA Steven MD 10/11/16 2218: Attending MD Review Statement Attending Statement Attending MD Statement: examined this patient, discuss w/resident/PA/GRAVE DIGGER, agreed w/resident/PA/GRAVE DIGGER, reviewed EMR data (avail), discussed with nursing, discussed with case mgmt, reviewed images, amended to note Attending Assessment/Plan: The patient was seen and discussed with house staff. Agree with the plan of care as outlined. Chest pain improving with current regimen. Multifactorial secondary to costochondritis with some component of reflux. Cardiology follow-up appreciated. Pacemaker to be interrogated tomorrow.
--- NOTE | 2016-10-11 18:16 | Event Note ---
Event Note Event Note: Around 6:00 PM patient was seen to discuss her medications. 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 She says that she cannot sleep unless she is on the monitor and is quite anxious about this. Dr. Bejarano was paged but as he has left for the day we have decided to place her back on telemetry for the night.
[2016-10-11 22:00] VITALS: BP 112/62
[2016-10-12 06:00] VITALS: BP 126/68
[2016-10-12 07:07] VITALS: BP 130/70
--- NOTE | 2016-10-12 09:31 | PN- Housestaff ---
MATTEO GARVEY,MARGI 10/12/16 0931: Subjective Follow-up For: methylprednisolone po 4mg tid today, bid tomorrow, once on 3rd day, then stop Complaints: pain scale (0-10) Subjective: Patient is seen and examined bedside. She notes that she feels the same as when she was admitted. She states she is using her incentive spirometer every hour. She says that she wants to walk around the floors today. Review of Systems Constitutional: Reports: weakness. EENTM: Reports: no symptoms. Cardiovascular: Reports: chest pain. Respiratory: Reports: cough, short of breath. Gastrointestinal: Reports: no symptoms. Genitourinary: Reports: no symptoms. Musculoskeletal: Reports: no symptoms. Skin: Reports: no symptoms. Objective Last 24 Hrs of Vital Signs/I&O Vital Signs Date Time Temp Pulse Resp B/P B/P Pulse O2 O2 Flow FiO2 Mean Ox Delivery Rate 10/12 1422 98.5 71 18 118/60 97 Room Air 10/12 0857 70 124/52 10/12 0707 98.4 69 20 130/70 97 Room Air 10/12 0600 98.3 71 22 126/68 99 Nasal 1.0L Cannula 10/12 0000 Nasal 1.0L Cannula 10/11 2200 98.8 77 22 112/62 95 Room Air Intake & Output 10/12 1600 10/12 0800 10/12 0000 Intake Total 850 450 850 Output Total 8036 861 1666 Balance - Intake, IV 250 250 Intake, Oral 850 200 600 Number 1 0 0 Bowel Movements Output, Urine 5340 177 3174 Physical Exam General Appearance: Alert, Oriented X3, Cooperative, Mild Distress Skin: No Rashes, No Breakdown, No Significant Lesion Skin Temp/Moisture Exam: Warm/Dry Sepsis Skin Exam (color): Normal for Ethnicity HEENT: Atraumatic, EOMI, Mucous Membr. moist/pink Neck: Supple Cardiovascular: Regular Rate, Normal S1, Normal S2, No Murmurs, Gallops, Rubs Lungs: Clear to Auscultation Abdomen: Normal Bowel Sounds, Soft, No Tenderness Neurological: Normal Speech Extremities: No Edema, No Tenderness/Swelling Vascular: Normal Pulses, Pulses Symmetrical Sepsis Peripheral Pulse Location: Radial Sepsis Peripheral Pulse Exam: Normal Current Medications: Current Medications Sig/Amaury Start time Last Medication Dose Route Stop Time Status Admin Acetaminophen 325 MG Q6P PRN 10/10 1415 AC PO Acetaminophen 1,000 MG Q6P PRN 10/09 2100 AC N/A 1 UNIT IV Acetaminophen 325 MG Q6P PRN 10/09 1845 AC PO Apixaban 2.5 MG BID 10/09 2200 AC 10/12 PO 0856 Aspirin 81 MG DAILY 10/09 1830 AC 10/12 PO 0855 Azithromycin 250 MG DAILY 10/12 1111 AC 10/12 PO 10/13 1001 1453 Azithromycin 500 MG DAILY@0 10/09 1930 DC 10/11 Sodium Chloride 250 ML IV 2026 Ceftriaxone Sodium 1,000 MG DAILY@19310/09 1930 DC 10/11 IV 202 Cefuroxime Sodium 250 MG Q12 10/12 1110 AC PO Furosemide 20 MG DAILY 10/12 1000 AC 10/12 PO 0857 Guaifenesin 10 ML Q6P PRN 10/09 2215 AC PO Guaifenesin 600 MG Q12 10/09 2201 AC 10/12 PO 0857 Meloxicam 15 MG DAILY@1800 10/10 1800 AC 10/11 PO 1730 Metoprolol Tartrate 25 MG BID PRN 10/10 0830 AC PO Nifedipine 60 MG DAILY 10/10 1000 AC 10/12 PO 0857 Nitroglycerin 0.5 GM Q6 PRN 10/09 1915 AC 10/10 TOP 0326 Omeprazole 40 MG BID 10/10 2200 AC 10/12 PO 0857 Sotalol HCl 80 MG BID 10/09 2200 AC 10/12 PO 0856 Spironolactone 25 MG DAILY 10/10 1000 AC 10/12 PO 0855 Sucralfate 1 GM TID 10/10 1600 AC 10/12 PO 0858 Temazepam 15 MG QPM 10/09 2200 AC 10/11 PO 2026 Assessment/Plan Assessment: Patient is a 85-year-old woman with past medical history significant for atrial fibrillation status post failed ablation on elliquis, severe aortic stenosis with TAVR in May 2015 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 She was recently admitted to [facility] on October 03 for similar complaints of chest pain. She had an echo at that time that showed a normal left ventricular ejection fraction and only mild concentric left ventricular hypertrophy, serial troponins and ECGs were negative for any ACS. And she was discharged with assumed musculoskeletal chest pain and GERD with PPIs and NSAIDs and instructioned to follow-up with her PCP This is a 85-year-old female patient with a second presentation to [place] with chest pain. Etiology is cardiac versus gastrointestinal versus musculoskeletal versus respiratory. #1. Atypical Chest Pain: Cardiac: * Unlikely to be an acute ischemic event since cardiac biomarkers and EKG negative despite pain being continuing for such a long time. * Patient placed in telemetry for observation. * All troponins and ekgs negative. * No need of echocardiogram, recent echocardiogram which showed normal ejection fraction with EF >65% with mild concentric left ventricular hypertrophy. * As per cardiology today Dr. Bejarano believes that she might have subclinical diastolic congestive heart failure precipitated by her episode of atrial fibrillation the day prior to admission accounting for her symptoms and recommend starting her on Lasix 1 IV dose and then 20 mg oral daily continued on discharge. GI: * Patient is currently on Prilosec 20 mg by mouth daily * Potential for esophageal pathology, wait for Dr. Lopez to see patient, and pending this, start omeprazole PPI 40 mg twice a day, MiraLAX and GI cocktail * Head of bed up as per reflux protocol Pulmonary: * Patient is receiving Mucinex for cough * Some consolidation seen on chest x-ray * Patient has white count of 10.5. * Patient IV antibiotics are DC'd in place of by mouth antibiotics in anticipation of discharge. Ceftin 250 mg twice a day and Zithromax 250 mg daily. Zithromax is to be given 5 days total and Ceftin to be given 7 days total including previous antibiotics accounted for. * Continue oxygen as needed * Encouraged patient to do incentive spirometry * TR nebs #2. Paroxysmal A. fib with RVR * Patient was on sotalol and Eliquis * She takes metoprolol as needed * As per Dr. Bejarano telemetry monitoring has been DC'd #3. Hypertension and hyperlipidemia * Continue home medications spironolactone nifedipine aspirin #4. Hyponatremia resolved #5. Disposition * Patient is to be discharged home tomorrow on home health services. Patient is full code Patient is currently nothing by mouth, heart healthy diet DT prophylaxis with Eliquis Problem List: 1. Dizziness 2. Chest pain 3. Cough Pain Ratin Pain Location: Central chest Pain Goal: Pain 4 or less Pain Plan: Meloxicam and Tylenol Tomorrow's Labs & Rationales: . CONSTANZA VAIL MD 10/12/16 5138: Attending MD Review Statement Attending Statement Attending MD Statement: examined this patient, discuss w/resident/PA/URBAN PLANNING PROFESSOR, agreed w/resident/PA/URBAN PLANNING PROFESSOR, discussed with family, reviewed EMR data (avail), discussed with nursing, discussed with case mgmt, amended to note Attending Assessment/Plan: The patient was seen and discussed with house staff. Agree with plan of care as above. Changed to po Lasix and Antibiotics today. Afib noted on pacer interrogation. Dr. Bejarano to notify us if any changes in medications recommended.
--- NOTE | 2016-10-12 12:14 | PN- Cardiology ---
Subjective Subjective: The patient is feeling better today. She is less short of breath. She is not having significant chest pain. She did receive IV Lasix yesterday and has been started on oral Lasix. Her pacemaker was interrogated and showed that she had a fairly brief episode of atrial fibrillation on October 08. She was symptomatic with this. This was the day before admission. Objective Vital Signs and I&Os Vital Signs Date Time Temp Pulse Resp B/P B/P Pulse O2 O2 Flow FiO2 Mean Ox Delivery Rate 10/12 0857 70 124/52 10/12 0707 98.4 69 20 130/70 97 Room Air 10/12 0600 98.3 71 22 126/68 99 Nasal 1.0L Cannula 10/12 0000 Nasal 1.0L Cannula 10/11 2200 98.8 77 22 112/62 95 Room Air 10/11 1600 96 Room Air Room Air 10/11 1437 98.2 70 18 122/58 94 Room Air Intake & Output 10/12 1600 10/12 0800 10/12 0000 10/11 1600 10/11 0800 10/11 0000 Intake Total 450 850 480 100 Output Total 500 2200 575 551 0843 Balance -50 -1350 -20 -300 -1200 Intake, IV 250 250 Intake, Oral 200 600 480 100 Number 0 0 Bowel Movements Output, Urine 500 2200 111 261 7050 Patient 130 lb Weight Physical Exam: She is in no distress HEENT exam is normal Chest reveals a few crackles in the left base Heart reveals regular rhythm and soft systolic ejection murmur There is no peripheral edema Current Medications: Current Medications Sig/Amaury Start time Last Medication Dose Route Stop Time Status Admin Acetaminophen 325 MG Q6P PRN 10/10 1415 AC PO Acetaminophen 1,000 MG Q6P PRN 10/09 2100 AC N/A 1 UNIT IV Acetaminophen 325 MG Q6P PRN 10/09 1845 AC PO Apixaban 2.5 MG BID 10/09 2200 AC 10/12 PO 0856 Aspirin 81 MG DAILY 10/09 1830 AC 10/12 PO 0855 Azithromycin 250 MG DAILY 10/12 1111 AC PO 10/13 1001 Azithromycin 500 MG DAILY@10/09 1930 DC 10/11 Sodium Chloride 250 ML IV 2026 Ceftriaxone Sodium 1,000 MG DAILY@10/09 193 DC 10/11 IV 202 Cefuroxime Sodium 250 MG Q12 10/12 1110 AC PO Furosemide 20 MG DAILY 10/12 1000 AC 10/12 PO 0857 Furosemide 20 MG BOLUS ONE 10/11 1345 DC 10/11 IV PUSH 10/11 1346 1503 Guaifenesin 10 ML Q6P PRN 10/09 2215 AC PO Guaifenesin 600 MG Q12 10/09 2201 AC 10/12 PO 0857 Meloxicam 15 MG DAILY@1800 10/10 1800 AC 10/11 PO 1730 Metoprolol Tartrate 25 MG BID PRN 10/10 0830 AC PO Nifedipine 60 MG DAILY 10/10 1000 AC 10/12 PO 0857 Nitroglycerin 0.5 GM Q6 PRN 10/09 1915 AC 10/10 TOP 0326 Omeprazole 40 MG BID 10/10 2200 AC 10/12 PO 0857 Patient Medication 1 ED .STK-MED ONE 10/11 1412 DC Teaching ED 10/11 1413 Sotalol HCl 80 MG BID 10/09 2200 AC 10/12 PO 0856 Spironolactone 25 MG DAILY 10/10 1000 AC 10/12 PO 0855 Sucralfate 1 GM TID 10/10 1600 AC 10/12 PO 0858 Temazepam 15 MG QPM 10/09 2200 AC 10/11 PO 2027 Assessment/Plan Assessment/Plan Ebony is feeling a little better. I suspect that she had mild acute diastolic congestive heart failure which is now improved. There is it is possible this may have been precipitated by her episode of atrial fibrillation the day prior to admission. I think she can be ambulated and probably discharged if she is comfortable. Continue telemetry? No
[2016-10-12 14:22] VITALS: BP 118/60
--- NOTE | 2016-10-12 16:58 | Patient Discharge Instructions ---
Discharge Instructions General Discharge Information You were seen/treated for: chest pain Watch for these problems: worsening chest pain fever cough Special Instructions: 1. please f/u with Dr. Asencio, your PCP, within 1 week of discharge for a BEP check. 2. please f/u with your plant tour guide within 2 weeks of discharge. Diet Continue normal diet: Yes Recommended Diet: Regular Activity Full Activity/No Limits: Yes (as tolerated) Acute Coronary Syndrome Inclusion Criteria At DC or during hospital stay patient has or had the following: ACS DIAGNOSIS No Discharge Core Measures Meds if any: Prescribed or Continued at Discharge Aspirin Yes Beta-Suzanne Yes Meds if any: NOT Prescribed or Continued at Discharge Congestive Heart Failure Inclusion Criteria At DC or during hospital stay patient has or had the following: CHF DIAGNOSIS No Discharge Core Measures Meds if any: Prescribed or Continued at Discharge Meds if any: NOT Prescribed or Continued at Discharge Cerebrovascular accident Inclusion Criteria At DC or during hospital stay patient has or had the following: CVA/TIA Diagnosis No Discharge Core Measures Meds if any: Prescribed or Continued at Discharge Meds if any: NOT Prescribed or Continued at Discharge Venous thromboembolism Inclusion Criteria VTE Diagnosis No VTE Type NONE VTE Confirmed by (Test) NONE Discharge Core Measures - Per Current guidelines, there needs to be overlap - treatment for the first 5 days of Warfarin therapy. - If discharged on Warfarin prior to 5 days of - overlap therapy, the patient will need to be - assessed for post discharge needs including - *Post discharge parental anticoagulation - *Warfarin and/or parental anticoagulation education - *Follow up date to check INR post discharge At least 5 days overlap therapy as Inpatient No Meds if any: Prescribed or Continued at Discharge Note: Overlap Therapy is Warfarin and Anticoagulant Meds if any: NOT Prescribed or Continued at Discharge
[2016-10-12 22:00] VITALS: BP 114/60
[2016-10-13] MEDS ORDERED: MELOXICAM15 M1 PO (07:34)
[2016-10-13] MEDS ORDERED: CEFTIN250 MG/51 PO (07:36)
[2016-10-13 08:01] VITALS: BP 130/62
[2016-10-13] MEDS ORDERED: CEFUROXIME250 M1 PO (08:01)
[2016-10-13 09:23] VITALS: BP 130/50
--- NOTE | 2016-10-13 09:58 | PN- Cardiology ---
Subjective Subjective: The patient is feeling much better. She has no chest pain. Her breathing is good. She has been ambulatory. She is eager to be discharged. Objective Vital Signs and I&Os Vital Signs Date Time Temp Pulse Resp B/P B/P Pulse O2 O2 Flow FiO2 Mean Ox Delivery Rate 10/13 0923 75 130/50 10/13 0801 98.8 75 20 130/62 99 Nasal Cannula 10/13 0000 Nasal 1.0L Cannula 10/12 220 98.2 69 20 114/60 99 Room Air 10/12 1422 98.5 71 18 118/60 97 Room Air Intake & Output 10/13 1600 10/13 0800 10/13 0000 10/12 1600 10/12 0800 10/12 0000 Intake Total 350 850 850 450 850 Output Total 1450 1722 797 5936 Balance 350 -600 - Intake, IV 0 0 250 250 Intake, Oral 350 850 850 200 600 Number 0 0 1 0 0 Bowel Movements Output, Urine 1450 9172 724 7137 Physical Exam: She is in no distress Chest is clear today heart regular rhythm. Systolic murmur at the base Current Medications: Current Medications Sig/Amaury Start time Last Medication Dose Route Stop Time Status Admin Acetaminophen 325 MG Q6P PRN 10/10 1415 AC PO Acetaminophen 1,000 MG Q6P PRN 10/09 2100 AC N/A 1 UNIT IV Acetaminophen 325 MG Q6P PRN 10/09 1845 AC PO Apixaban 2.5 MG BID 10/09 2200 AC 10/13 PO 0922 Aspirin 81 MG DAILY 10/09 1830 AC 10/13 PO 0923 Azithromycin 250 MG DAILY 10/12 1111 AC 10/13 PO 10/13 1001 0923 Azithromycin 500 MG DAILY@10/09 1930 DC 10/11 Sodium Chloride 250 ML IV 2026 Ceftriaxone Sodium 1,000 MG DAILY@10/09 193 DC 10/11 IV 202 Cefuroxime Sodium 250 MG Q12 10/12 1110 AC 10/13 PO 0923 Furosemide 20 MG DAILY 10/12 1000 AC 10/13 PO 0923 Guaifenesin 10 ML Q6P PRN 10/09 2215 AC PO Guaifenesin 600 MG Q12 10/09 2201 AC 10/13 PO 0923 Meloxicam 15 MG DAILY@1800 10/10 1800 AC 10/12 PO 1652 Metoprolol Tartrate 25 MG BID PRN 10/10 0830 AC PO Nifedipine 60 MG DAILY 10/10 1000 AC 10/13 PO 0923 Nitroglycerin 0.5 GM Q6 PRN 10/09 1915 AC 10/10 TOP 0326 Omeprazole 40 MG BID 10/10 2200 AC 10/13 PO 0923 Sotalol HCl 80 MG BID 10/09 2200 AC 10/13 PO 0922 Spironolactone 25 MG DAILY 10/10 1000 AC 10/13 PO 0922 Sucralfate 1 GM TID 10/10 1600 AC 10/13 PO 0923 Temazepam 15 MG QPM 10/09 2200 AC 10/12 PO 2112 Assessment/Plan Assessment/Plan Ebony is feeling a little better. I suspect that she had mild acute diastolic congestive heart failure which is now improved. It is possible this may have been precipitated by her episode of atrial fibrillation the day prior to admission. She appears to be ready for discharge today. I have asked her to see me in the office next week. She should be sent out on Lasix 20 mg daily. Continue telemetry? Not applicable
[2016-10-13] MEDS ORDERED: CARAFATE1 GM/10 M1 PO (10:13)
[2016-10-13] MEDS ORDERED: OMEPRAZOLE40 M1 PO (10:14)
[2016-10-13] MEDS ORDERED: LASIX20 M1 PO (10:14)
--- NOTE | 2016-10-13 10:34 | PN- Housestaff ---
MATTEO GARVEY,MARGI 10/13/16 1027: Subjective Follow-up For: chest pain Complaints: no complaints Tele-Events Since Last Visit: Normal sinus rhythm 69-70 no events Subjective: Patient is feeling well no complaints Review of Systems Constitutional: Reports: no symptoms. Objective Last 24 Hrs of Vital Signs/I&O Vital Signs Date Time Temp Pulse Resp B/P B/P Pulse O2 O2 Flow FiO2 Mean Ox Delivery Rate 10/13 0923 75 130/50 10/13 0801 98.8 75 20 130/62 99 Nasal Cannula 10/13 0000 Nasal 1.0L Cannula 10/12 2199 98.2 69 20 114/60 99 Room Air 10/12 1422 98.5 71 18 118/60 97 Room Air Intake & Output 10/13 1600 10/13 0800 10/13 0000 Intake Total 350 850 Output Total 1450 Balance 350 -600 Intake, IV 0 0 Intake, Oral 350 850 Number 0 0 Bowel Movements Output, Urine 1450 Physical Exam General Appearance: Alert, Oriented X3, Cooperative, No Acute Distress Cardiovascular: Regular Rate, Normal S1, Normal S2, No Murmurs, Gallops, Rubs Lungs: Clear to Auscultation, Normal Air Movement Extremities: No Clubbing, No Cyanosis, No Edema, Normal Pulses, No Tenderness/ Swelling Vascular: Normal Pulses, Pulses Symmetrical Current Medications: Current Medications Sig/Amaury Start time Last Medication Dose Route Stop Time Status Admin Acetaminophen 325 MG Q6P PRN 10/10 1415 AC PO Acetaminophen 1,000 MG Q6P PRN 10/09 2100 AC N/A 1 UNIT IV Acetaminophen 325 MG Q6P PRN 10/09 1845 AC PO Apixaban 2.5 MG BID 10/09 2199 AC 10/13 PO 0922 Aspirin 81 MG DAILY 10/09 1830 10/13 PO 0923 Azithromycin 250 MG DAILY 10/12 1111 DC 10/13 PO 10/13 1001 0923 Azithromycin 500 MG DAILY@10/09 DC 10/11 Sodium Chloride 250 ML IV 2026 Ceftriaxone Sodium 1,000 MG DAILY@10/09 193 DC 10/11 IV 2025 Cefuroxime Sodium 250 MG Q12 10/12 1110 AC 10/13 PO 0923 Furosemide 20 MG DAILY 10/12 1000 AC 10/13 PO 0923 Guaifenesin 10 ML Q6P PRN 10/09 2215 AC PO Guaifenesin 600 MG Q12 10/09 2201 AC 10/13 PO 0923 Meloxicam 15 MG DAILY@1800 10/10 1800 AC 10/12 PO 1652 Metoprolol Tartrate 25 MG BID PRN 10/10 0830 AC PO Nifedipine 60 MG DAILY 10/10 1000 AC 10/13 PO 0923 Nitroglycerin 0.5 GM Q6 PRN 10/09 1915 AC 10/10 TOP 0326 Omeprazole 40 MG BID 10/10 2200 AC 10/13 PO 0923 Sotalol HCl 80 MG BID 10/09 2200 AC 10/13 PO 0922 Spironolactone 25 MG DAILY 10/10 1000 AC 10/13 PO 0922 Sucralfate 1 GM TID 10/10 1600 AC 10/13 PO 0923 Temazepam 15 MG QPM 10/09 220 AC 10/12 PO 211 Assessment/Plan Assessment: Assessment Patient is a 85-year-old woman with past medical history significant for atrial fibrillation status post failed ablation on elliquis, severe aortic stenosis with TAVR in May 2015 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 She was recently admitted to [facility] on October 03 for similar complaints of chest pain. She had an echo at that time that showed a normal left ventricular ejection fraction and only mild concentric left ventricular hypertrophy, serial troponins and ECGs were negative for any ACS. And she was discharged with assumed musculoskeletal chest pain and GERD with PPIs and NSAIDs and instructioned to follow-up with her PCP Plan This is a 85-year-old female patient with a second presentation to [facility] with chest pain. Etiology is cardiac versus gastrointestinal versus musculoskeletal versus respiratory. #1. Atypical Chest Pain: Cardiac: * Unlikely to be an acute ischemic event since cardiac biomarkers and EKG negative despite pain being continuing for such a long time. * Patient placed in telemetry for observation. * All troponins and ekgs negative. * No need of echocardiogram, recent echocardiogram which showed normal ejection fraction with EF >65% with mild concentric left ventricular hypertrophy. * As per cardiology today Dr. Bejarano believes that she might have subclinical diastolic congestive heart failure precipitated by her episode of atrial fibrillation the day prior to admission accounting for her symptoms. Discharge on 20 mg Lasix by mouth daily. GI: * Patient is currently on Prilosec 20 mg by mouth daily * Potential for esophageal pathology, wait for Dr. Lopez to see patient, and pending this, start omeprazole PPI 40 mg twice a day, MiraLAX and GI cocktail * Discharge patient on omeprazole PPI 40 mg twice a day and Carafate suspension Pulmonary: * Some consolidation seen on chest x-ray * Pleuritic-like chest pain * IV antibiotics are converted to by mouth for anticipated discharge. Zithromax is to be finished today. Patient is written a prescription for Ceftin twice a day for 2 days. * Mucinex zerp-ryi-lyxvoiv * Meloxicam for pain #2. Paroxysmal A. fib with RVR * Patient was on sotalol and Eliquis * She takes metoprolol as needed * As per Dr. Bejarano telemetry monitoring has been DC'd #3. Hypertension and hyperlipidemia * Continue home medications spironolactone nifedipine aspirin #4. Hyponatremia resolved #5. Disposition * Patient is to be discharged home today on home health services. Patient is full code Patient is currently heart healthy diet DT prophylaxis with Eliquis Problem List: 1. Tachycardia 2. Chest pain 3. Cough 4. Dizziness Pain Ratin Pain Location: None Pain Goal: Remain pain free Pain Plan: Meloxicam for pain Tomorrow's Labs & Rationales: None stable for discharge Discharge Plan Discharge Disposition: home Stable for Discharge? Yes Anticipated Discharge (Day): today If Discharged Today/In 24 Hrs: enter antc discharge ord, W-10/discharge paper done, CMR done CONSTANZA VAIL MD 10/13/162111: Attending MD Review Statement Attending Statement Attending MD Statement: examined this patient, discuss w/resident/PA/HOME HEALTH CARE RESPIRATORY THERAPIST, agreed w/resident/PA/HOME HEALTH CARE RESPIRATORY THERAPIST, reviewed EMR data (avail), discussed with nursing, discussed with case mgmt, amended to note Attending Assessment/Plan: The patient was seen and discussed with house staff. Chest pain improving and appetite/strength better. Still with hoarse voice. OK to discharge to home today with 2 days more of po Abx. Will see her PCP (Dr. Asencio) on 10/17. He will advise regarding taper of Mobic and subsequent taper of anti-reflux meds. Home services with PT.
--- NOTE | 2016-10-13 16:55 | Discharge Summary ---
Visit Information Visit Dates Admission Date: 10/10/16 Discharge Date: 10/13/16 Hospital Course Course Attending Physician: CONSTANZA VAIL MD Primary Care Physician: MAURISIO GARVEY,DELFINA Pete Hospital Course: Patient is a 85-year-old woman with past medical history significant for atrial fibrillation status post failed ablation on Eliquis, severe aortic stenosis with TAVR in May 2015 complicated with bradycardia requiring pacemaker placement May 2015, also complicated with pericardial effusion requiring pericardial window, hypertension, history of heart failure with reduced ejection fraction, primary parathyroidism, internal hemorrhoids, recently surgery of Meckel's diverticulum in August 2016 presented to the ED for the evaluation of chest pain. Patient was seen on 10/03/2016 at [facility] for similar presentation. A full cardiac workup was done and ACS was ruled out. She was diagnosed with GERD /musculoskeletal pain and discharged home on ibuprofen and omeprazole. Patient reports that she has been taking ibuprofen every 4 hours and omeprazole with no improvement in her chest pain since that visit. The pain continued about 6-7/10 on intensity in the center of the chest, radiating to her left side with worsening on breathing and deep inspiration. She has also been having some nonproductive cough with hoarseness of voice and palpitations. She reports that her heart rate went up to 130s and she took double doses of metoprolol(50 mg) thinking she might be in A. fib. The chest pain continues at rest and worsens on exertion and inspiration and moving. She denies any nausea, vomiting, abdominal pain, fever, chills, urinary or bowel symptoms or recent sick contacts , travel. Patient lives in [place] and sees a knuckle bender there. She did not have any recent stress test and does not remember the last cardiac cath results. In the ED vitals showed a temperature of 97.2, pulse 97, blood pressure 110/60, saturating 95% on room air. Labs showed a white count of 13.5 no left shift, H& H 10.9/33(around baseline), sodium 129(patient runs around 132), troponin 0.01. Chest x-ray showed patchy lower left consolidation and small pleural effusion questionable pneumonia. Nonspecific sub-centimeter noted opacity in the right midlung. Patient received nitroglycerin ointment with improvement in her symptoms and IV Tylenol in the ED. On the floors patient had a full workup for cardiac, pulmonology, gastrointestinal etiologies. She also reports during the last few days she had her pacemaker data sent over to the knuckle bender Dr. Bejarano for reviewing. Cardiac-marley, this was Unlikely to be an acute ischemic event since cardiac biomarkers and EKG negative despite pain continuing for such a long time. She was placed in telemetry for observation for the chest pain as well as her atrial fibrillation with RVR. There was no need of echocardiogram, recent echocardiogram showed normal ejection fraction with EF >65% with mild concentric left ventricular hypertrophy. As per cardiology Dr. Bejarano believes that she might have subclinical diastolic congestive heart failure precipitated by her episode of atrial fibrillation the day prior to admission accounting for her symptoms. She was discharged on 20 mg Lasix by mouth daily. As for her paroxysmal A. fib with RVR, patient was on sotalol and Eliquis and she takes metoprolol as needed. This was continued in hospital and out. GI-marley, patient was noted to currently he on Prilosec 20 mg by mouth daily. However as she still was noted to have other symptoms of GERD she was started on omeprazole PPI 40 mg twice a day, MiraLAX and GI cocktail. There was a thought that she may have esophageal pathology causing her chest pain, however Dr. Lopez did not believe this is the case and saw no need for an EGD. We discharged the patient on omeprazole PPI 40 mg twice a day and Carafate suspension. Pulmonary-marley, some consolidation seen on chest x-ray and the patient had pleuritic-like chest pain she was started on Zithromax which was converted to by mouth Ceftin for the remainder of the time twice a day for 2 days. She was given Mucinex and meloxicam for chest pain. Her hypertension and hyperlipidemia were treated with the same medications in hospital as out. We continued her spironolactone, nifedipine, aspirin. Patient was discharged home on home health services. Allergies: Coded Allergies: Sulfa (Sulfonamide Antibiotics) (Severe, SWELLING 10/03/16) diphenhydramine (From BENADRYL) (Severe, MAKES CRAZY, HALLUCINATION 10/09/16) hydromorphone (From DILAUDID) (Severe, CONFUSION 10/09/16) morphine (Severe, SYNCOPE 10/03/16) oxycodone (From PERCOCET) (Severe, EXTREME VOMITING 10/09/16) JOSE Inhibitors (UNKNOWN PER PT 10/09/16) ARB-Angiotensin Receptor Antagonist (SWELLING 10/09/16) Disposition Summary Disposition Principal Diagnosis: Pneumonia Additional Diagnosis: Paroxysmal atrial fibrillation with RVR Discharge Disposition: home health services Discharge Instructions General Discharge Information Code Status: Full Code Patient's Diet: Heart healthy diet Patient's Activity: As tolerated Follow-Up Instructions/Appts: Please follow-up with Dr. Asencio, your PCP, within 1 week of discharge for a BeP check Please follow up with her knuckle bender within 2 weeks of discharge Medications at Discharge Discharge Medications: Stop taking the following medications: Omeprazole (Omeprazole) 20 MG CAPSULE.DR ORAL DAILY Continue taking these medications: Nifedipine (Nifedipine ER) 60 MG TAB.ER.24 1 Tablet ORAL DAILY Comments: Last Taken: 10/13/16 Time: 9:23A.M Spironolactone (Aldactone) 25 MG TABLET 1 Tablet ORAL DAILY Comments: Last Taken: 10/13/16 Time: 9:23A.M Metoprolol Tartrate (Metoprolol Tartrate) 25 MG TABLET 1 Tablet ORAL TWICE DAILY as needed for PRN HEART RATE >120 Comments: NOT GIVEN IN HOSPITAL Apixaban (Eliquis) 2.5 MG TABLET 1 Tablet ORAL TWICE DAILY Comments: Last Taken: 10/13/16 Time: 9:23A.M Sotalol HCl (Sotalol) 80 MG TABLET 1 Tablet ORAL TWICE DAILY Comments: Last Taken: 10/13/16 Time: 9:23A.M Temazepam (Temazepam) 15 MG CAPSULE 1 Capsule ORAL Every night Comments: Last Taken: 10/12/16 Time: 9:12P.M Docusate Sodium (Stool Softener) 250 MG CAPSULE 1 Tablet ORAL TWICE DAILY Comments: Last Taken: NOT GIVEN THIS ADMISSION Time: Aspirin (Aspirin*) 81 MG TAB.CHEW 1 Tablet ORAL DAILY Comments: Last Taken: 10/13/16 Time: 9;23A.M Start taking the following new medications: Meloxicam (Meloxicam) 15 MG TABLET 1 Tablet ORAL DAILY Qty = 30 No Refills Comments: Last Taken:10/12/16 Time:4:52P.M Cefuroxime Axetil (Cefuroxime) 250 MG TABLET 1 Tablet ORAL TWICE DAILY Qty = 4 No Refills Comments: Last Taken:10/13/16 Time:9;23A.M Sucralfate (Carafate) 1 GRAM/10 ML ORAL.SUSP 10 Milliliters ORAL THREE TIMES DAILY Qty = 160 No Refills Instructions: 1 hour before food Comments: Last Taken:10/13/16 Time:9:23A.M Furosemide (Lasix) 20 MG TABLET 1 Tablet ORAL DAILY Qty = 30 No Refills Comments: Last Taken:10/13/16 Time:9:23A.M Omeprazole (Omeprazole) 40 MG CAPSULE.DR 1 Capsule ORAL TWICE DAILY Qty = 60 No Refills Comments: Last Taken:10/13/16 Time:9:23A.M Copies To: MAURISIO GARVEY,DELFINA Pete
== END 2016-10-13 13:12 | disposition home health service (06) | DRG 291 ==
LOC: ERH 13:04 → ERHI 18:28 → ENTRNSPT 19:25 → EDTRNSPTSTS 19:28 → 1NO 19:56 → CMPTRNSPT 20:17 → 1NO 10-10 09:35 → ENPENDDIS 10-13 10:18 → 1NO 10-13 13:12
PROVIDERS: Emergency Medicine; Student in an Organized Health Care Education/Training Program; ADMIT Student in an Organized Health Care Education/Training Program
DX: I11.0 Hypertensive heart disease with heart failure (principal); J18.9 Pneumonia, unspecified organism; I45.10 Unspecified right bundle-branch block; N18.3 Chronic kidney disease, stage 3 (moderate); Z79.01 Long term (current) use of anticoagulants; Z95.2 Presence of prosthetic heart valve; E87.1 Hypo-osmolality and hyponatremia; I50.33 Acute on chronic diastolic (congestive) heart failure; Z95.0 Presence of cardiac pacemaker; G47.33 Obstructive sleep apnea (adult) (pediatric); H91.90 Unspecified hearing loss, unspecified ear; K21.9 Gastro-esophageal reflux disease without esophagitis; Z98.1 Arthrodesis status; M94.0 Chondrocostal junction syndrome [Tietze]; E78.5 Hyperlipidemia, unspecified
CPT/HCPCS: 1NSP; 82436; 87040; 87070; 87449; 87450; 93005; 93010; 96374; 97116-GO; 97161-GP; 97530-GO; J0131; J0456; J0696; J1940; J3490; J7040; J7042

== ENCOUNTER 2017-10-31 22:25 | Inpatient (IN) | payer OTHER, MEDICARE ==
[~2017-10-31] VITALS: Ht 154.9 cm; Wt 60.9 kg
[~2017-10-31 22:25] MED LIST changes: +CARAFATE1 GM/10 M1 PO; +CEFTIN250 MG/51 PO; +CEFUROXIME250 M1 PO; +LASIX20 M1 PO; +MELOXICAM15 M1 PO; +OMEPRAZOLE20 M2 PO; +OMEPRAZOLE40 M1 PO
--- NOTE | 2017-10-31 22:41 | ED SYNCOPE COMPLAINT ---
History of Present Illness General Chief Complaint: Syncope and Near-Syncope Stated Complaint: FALL, ? SYNCOPE, FACIAL INJURY Source: patient, family Exam Limitations: no limitations Vital Signs & Intake/Output Vital Signs & Intake/Output Vital Signs Date Time Temp Pulse Resp B/P B/P Pulse O2 O2 Flow FiO2 Mean Ox Delivery Rate 11/02 0655 98.0 69 18 148/80 99 Nasal Cannula 11/01 2258 Nasal 2.0L Cannula 11/01 2159 98.4 72 18 140/80 95 Room Air 11/01 2100 Room Air 11/01 1400 97.6 69 20 148/80 98 Room Air 11/01 0932 97.6 75 18 132/96 97 Room Air Room Air 11/01 0931 75 150/90 ED Intake and Output 11/02 0000 11/01 1200 Intake Total 800 Output Total 1400 Balance -600 Intake, IV 250 Intake, Oral 550 Number 2 Bowel Movements Output, Urine 1400 Patient 141 lb 135 lb Weight Weight Bed scale Measurement Method Allergies Coded Allergies: Sulfa (Sulfonamide Antibiotics) (Severe, SWELLING 10/03/16) diphenhydramine (From BENADRYL) (Severe, MAKES CRAZY, HALLUCINATION 10/09/16) hydromorphone (From DILAUDID) (Severe, CONFUSION 10/09/16) morphine (Severe, SYNCOPE 10/03/16) oxycodone (From PERCOCET) (Severe, EXTREME VOMITING 10/09/16) JOSE Inhibitors (UNKNOWN PER PT 10/09/16) ARB-Angiotensin Receptor Antagonist (SWELLING 10/09/16) Triage Note: 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 PT HAS HEMATOMA ON LEFT EYE. PT DOES NOT REMEMBER LOC, BUT RELATIVE STATES SHE HEARD PT FALL UPSTAIRS & WHEN SHE WENT IN, PT WAS AWAKE. PT TAKES ELEQUIS FOR AFIB Triage Nurses Notes Reviewed? yes HPI: An 86-year-old female with a past medical history significant for A. fib status post atrial fibrillation on Eliquis, severe aortic stenosis with TAVR, bradycardia status post pace maker, heart failure with reduced ejection fraction who presented to the ED with unwitnessed fall. The patient was doing very well. She did her 1 hour of exercise before going to bed. She did not have any dinner as she felt full with her lunch. The last thing the patient remembered was she was getting ready to change for bed. The patient lives with her daughter and son-in-law heard a thud around 9:30 PM. They came into the patient's room to find her on the floor morning about her shoulder hurting. He tried to foscarnet will happen but she did not answer because she did not have a hearing device in. The patient had badly bruised her left eye and face. The daughter and son-in-law brought her to the emergency department by car. The patient does not complain of any nausea/palpitations/chest pain/shortness of breath/unsteadiness/tongue bite/fecal incontinence/urinary incontinence/seizure- like activity/recent falls (Joseph GARVEY,[facility]) Reconcile Medications Apixaban (Eliquis) 2.5 MG TABLET 1 TAB PO BID BLOOD THINNER (Reported) Aspirin (Aspirin*) 81 MG TAB.CHEW 1 TAB PO QPM HEART HEALTH (Reported) Cholecalciferol (Vitamin D3) 1,000 UNIT TABLET 1 TAB PO BID VITAMIN SUPPORT ( Reported) Cyanocobalamin (Vitamin B-12) (B-12 Dual Spectrum) 5,000 MCG TAB.IR.ER 1 TAB PO DAILY VITAMIN SUPPORT (Reported) Docusate Sodium (Stool Softener) 250 MG CAPSULE 1 TAB PO BID STOOL SOFTENER ( Reported) Ferrous Sulfate 325 MG (65 MG IRON) TABLET 1 TAB PO Q72 IRON, VITAMIN ( Reported) Folic Acid 1 MG TABLET 1 TAB PO QPM VITAMIN SUPPORT (Reported) Lactobacillus Acidophilus (Probiotic) 10 BILLION CELL CAPSULE 1 CAP PO DAILY GI (Reported) Loratadine (Claritin) 10 MG TABLET 1 TAB PO DAILY ALLERGIES (Reported) Lutein/Zeaxanthin (Ocuvite Lutein 25-5 MG Softgel) 25 MG-5 MG CAPSULE 1 TAB PO QPM EYE (Reported) Melatonin 3 MG TABLET 1 TAB PO QPM SLEEP (Reported) Multivitamin (Daily Value) 1 EACH TABLET 1 TAB PO DAILY VITAMIN SUPPORT ( Reported) Nifedipine (Nifedipine ER) 60 MG TAB.ER.24 1 TAB PO DAILY HEART (Reported) Omeprazole 40 MG CAPSULE.DR 1 CAP PO BID ACID REFLUX Polyethylene Glycol 3350 (Miralax) 17 GRAM/DOSE POWDER 17 GM PO BID CONSTIPATION (Reported) mix with water, juice, soda, coffee or tea Potassium Chloride 20 MEQ TAB.ER.PRT 1 TAB PO DAILY SUPPLEMENT (Reported) Spironolactone (Aldactone) 25 MG TABLET 1 TAB PO DAILY WATER RETENTION ( Reported) Temazepam 15 MG CAPSULE 1 CAP PO QPM SLEEP (Reported) (Jocelynn GARVEY,Noel Lara) Past History Travel History Traveled to [place] past 21 day No Medical History Any Pertinent Medical History? 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 Yes (Deann Ruiz MD) Review of Systems Review of Systems Constitutional: Reports: no symptoms. EENTM: Reports: eye pain. Respiratory: Reports: no symptoms, cough, short of breath. Cardiovascular: Reports: no symptoms. GI: Reports: no symptoms. Genitourinary: Reports: no symptoms. Musculoskeletal: Reports: no symptoms. Skin: Reports: no symptoms. Neurological/Psychological: Reports: no symptoms. All Other Systems: Reviewed and Negative (Deann Ruiz MD) Physical Exam Physical Exam General Appearance: well developed/nourished, no apparent distress, alert, awake Head: atraumatic, normal appearance, evidence of injury, swelling Eyes: Left: other (lid echymoses and swelling ). Right: normal appearance. Ears, Nose, Throat: normal pharynx, normal ENT inspection Neck: normal inspection Respiratory: normal breath sounds, chest non-tender, no respiratory distress, lungs clear Cardiovascular: regular rate/rhythm Gastrointestinal: normal bowel sounds, soft, non-tender, no organomegaly Extremities: normal inspection, no edema Cranial Nerves: normal hearing, normal speech Motor/Sensory: no motor/sensory deficits Skin: intact, normal color, warm/dry Core Measures ACS in differential dx? No CVA/TIA Diagnosis: Yes Sepsis Present: No Sepsis Focused Exam Completed? Yes (Joseph GARVEY,[facility]) Progress Differential Diagnosis: drug induced syncope, orthostatic syncope, vasovagal syncope Plan of Care: Orders Procedure Date/time Status CBC WITHOUT DIFFERENTIAL 11/02 599 Complete BASIC ELECTROLYTES PLUS BUN&CR 11/02 0600 Active Therapeutic Exercise 11/02 UNK Complete Gait Training 11/02 UNK Complete MISSING MEDICATION FORM 11/02 UNK Active TROPONIN LEVEL 11/01 2130 Complete EKG 11/01 2130 Active OXYGEN SETUP (GEN) 11/01 2100 Complete TROPONIN LEVEL 11/01 1527 Complete EKG 11/01 1527 Active Code Status 11/01 1101 Active ECHOCARDIOGRAM 11/01 1100 Active PT Evaluate & Treat 11/01 1048 Active Pathway - chart 11/01 1048 Active House Staff 11/01 1048 Active Patient Data 11/01 1048 Active CASE MANAGEMENT CONSULT 11/01 1048 Active Weight 11/01 0936 Active Vital Signs 11/01 0936 Active Teach/Educate 11/01 0936 Active Pain Treatment and Response 11/01 0936 Active Nutritional Intake, Monitor 11/01 0936 Active Isolation 11/01 0936 Active Intake & Output 11/01 0936 Active Patient Care Conference 11/01 0936 Active Activity/Ambulation 11/01 0936 Active TSH REFLEX 11/01 0003 Complete Therapeutic Activities 11/01 UNK Complete PT EVAL LOW COMPLEX 20 MIN 11/01 UNK Complete Gait Training 11/01 UNK Complete Lab Add-on Test 11/01 UNK Active VTE Mechanical Prophylaxis 11/01 UNK Active Telemetry/Route Aide 11/01 UNK Active Precautions 11/01 UNK Active Heat/Cold Therapy 11/[address] Coma Scale 11/01 UNK Active MISSING MEDICATION FORM 11/01 UNK Active Current Medications Sig/Amaury Start time Last Medication Dose Stop Time Status Admin Aspirin 81 MG QPM 11/01 2099 AC 11/01 (Aspirin) 2028 Folic Acid 1 MG QPM 11/01 2099 AC (Folic Acid) Melatonin 3 MG QPM 11/01 2100 AC 11/01 (Melatonin) 2028 Temazepam 15 MG QPM 11/01 2100 AC 11/01 (Restoril) 2027 Ferrous Sulfate 325 MG Q3D 11/01 1445 AC 11/01 (Feosol) 1713 Nifedipine 60 MG DAILY 11/01 1434 AC (Procardia XL) Omeprazole 40 MG DAILY AC 11/01 1434 AC 11/02 (Prilosec) 0610 Lactobacillus 1 CAP DAILY 11/01 1433 AC 11/01 Acidophilus 1709 (Probiotic) Cyanocobalamin 1,000 MCG DAILY 11/01 1432 AC 11/01 (Vitamin B12) 1708 Senna/Docusate Sodium 2 TAB DAILY 11/01 1432 AC (Senokot S) Cholecalciferol 1,000 IU BID 11/01 1431 AC 11/01 (Vitamin D) 2028 Acetaminophen 650 MG Q6PRN PRN 11/01 1045 AC 11/01 (Tylenol) 202 Multivitamins 1 TAB DAILY 11/01 1045 AC 11/01 (Theragran Vitamins) 1210 Sodium Chloride 1,000 ML .Q20H 11/01 1045 AC 11/01 (Normal Saline 0.9%) 1211 Laboratory Tests 11/02/17 0615: Sodium Pending, Potassium Pending, Chloride Pending, Carbon Dioxide Pending, Anion Gap Pending, BUN Pending, Creatinine Pending, BUN/Creatinine Ratio Pending , CBC w Diff NO MAN DIFF REQ, RBC 4.29, MCV 94.1, MCH 32.1 H, MCHC 34.1, RDW 14.4, MPV 10.3, Gran % 74.1, Lymphocytes % 14.8 L, Monocytes % 9.2, Eosinophils % 1.7, Basophils % 0.2, Absolute Granulocytes 5.6, Absolute Lymphocytes 1.1 L, Absolute Monocytes 0.7 H, Absolute Eosinophils 0.1, Absolute Basophils 0 11/01/17 2128: Troponin I 0.02 11/01/17 1558: Troponin I 0.02 (Deann Ruiz MD) Departure Departure Disposition: STILL A PATIENT Condition: Stable Clinical Impression Primary Impression: Syncope Referrals: Braulio Asencio MD (PCP/Family) Departure Forms: Customer Survey General Discharge Information (Deann Ruiz MD) Admission Note Spoke With: Ashley Velez MD Documentation of Exam: Documentation of any treatments & extenuating circumstances including Concerns Regarding Discharge (functional status, medication knowledge or non-compliance, living conditions, etc.) that warrant an admission rather than observation: Patient presents with injury sustained to the left side of the face status post fall of unclear cause. It is possible the patient had a syncopal episode as the reason for her fall and subsequent injury. This places her at risk of cardiac dysrhythmia with further syncopal episodes and falling along with the possibility of dysrhythmia. In addition the patient's left eye is swollen shut compromising her ability to ambulate and navigate (she has lost her stereoscopic vision). This heightens her risk of falling with subsequent injury. Given this, she is a very poor candidate for outpatient management and therefore requires hospitalization. During her hospitalization the patient should be medicated for pain and have ice and elevation of the left side of the face to reduce swelling and restore her normal vision. Patient should be reevaluated for any subsequent injuries secondary to falling. Ophthalmology consultation should be considered given the injury to the periorbital region. Physical therapy consultation should be obtained to assess the patient's ability to ambulate given her current injuries. The possibility of a syncopal episode should also be investigated and further studies such as carotid Doppler, brain MRI and orthostatic vital signs testing should be considered. In addition patient should be placed on telemetry for the possibility of intermittent dysrhythmia. Cardiology consultation should be considered. I feel this patient will require a multiple day hospitalization. Resident Co-Sign Statement Statement: ED Attending supervision documentation- [x] I saw and evaluated the patient. I have also reviewed all the pertinent lab results and diagnostic results. I agree with the findings and the plan of care as documented in the Resident's documentation. [] I have reviewed the ED Record and agree with the Resident's documentation. [] Additions or exceptions (if any) to the Resident's note and plan are summarized below: [] (Jocelynn GARVEY,Noel Lara) ED Attending Observation Initial Observation Note: I have seen and personally examined GODWIN GOMEZ on 10/31/17 at 2347. I agree with the current emergency department documentation. The disposition (admission or discharge) is uncertain at this time, she needs a period of observation for the following reason(s): SYNCOPE/UMWITNESSED FALL The ED Nurse caring for this patient has been personally informed as to what the patient is being observed for. (Joseph GARVEY,Deann)
[2017-10-31 23:26] LABS: ABSOLUTE BASOPHIL COUNT 0 /CUMM (0.0-0.2); ABSOLUTE EOSINOPHIL COUNT 0.1 /CUMM (0.0-0.7); ABSOLUTE GRANULOCYTE CT 6.7 /CUMM (1.4-6.5); ABSOLUTE LYMPH COUNT 1.7 /CUMM (1.2-3.4); ABSOLUTE MONOCYTE COUNT 0.8 /CUMM (0.10-0.60); BASOPHIL % 0.4 % (0.0-2.0); EOSINOPHIL % 1.1 % (0-5); GRANULOCYTE % 71.1 % (42.2-75.2); MEAN CORPUSCULAR HGB 31.7 PG (27.0-31.0); MEAN CORPUSCULAR HGB CONC 33.9 G/DL (33.0-37.0); MEAN CORPUSCULAR VOLUME 93.6 FL (81.0-99.0); MEAN PLATELET VOLUME 10.2 FL (7.4-10.4); PLATELET COUNT 185 /CUMM (130-400); RBC DISTRIBUTION WIDTH 14.4 % (11.5-14.5); WHITE BLOOD CELL COUNT 9.4 /CUMM (4.8-10.8)
--- NOTE | 2017-10-31 23:48 | CT SCAN REPORT ---
EXAMINATIONS: CT HEAD WITHOUT CONTRAST AND CT CERVICAL SPINE WITHOUT CONTRAST AND CT FACIAL BONES WITHOUT CONTRAST CLINICAL INFORMATION: Swelling and pain following trauma. COMPARISON: None. TECHNIQUE: Contiguous helical images of the brain were obtained without IV contrast. Contiguous helical images of the facial bones were obtained without IV contrast. Contiguous helical images of the cervical spine were obtained without IV contrast. Multiplanar reconstructions were performed. FINDINGS: There are no pathologic extra-axial fluid collections. The lateral, third, fourth ventricles are prominent, though age-appropriate and concordant with the appearance of the sulci. There is no evidence for acute intraparenchymal hemorrhage or infarct. There is mild periventricular low-attenuation indicative of small vessel disease. There is neither mass nor mass effect. There is no shift of midline structures. The paranasal sinuses and mastoid air cells are clear. There are no osseous lesions. There are no facial bone fractures. The ostiomeatal units are patent. There is diffuse soft tissue swelling and a hematoma overlying the left maxilla and left globe. The cervical vertebra are in normal alignment. There is multilevel disc height loss at C3/C4, C4/C5, C5/C6 and C6/C7. There is mild anterior osteophyte formation. Disc heights and vertebral heights are otherwise well-preserved. There are no fractures. There is no prevertebral soft tissue swelling. There is no cervical lymphadenopathy. The visualized lung apices are clear. IMPRESSION: No evidence for acute intracranial injury. Age-appropriate appearance of the brain. No evidence for acute injury to the cervical spine. Age-appropriate degenerative change within the cervical spine. No facial bone fractures demonstrated. Soft tissue hematoma and soft tissue swelling overlying the left globe and maxilla.
--- NOTE | 2017-11-01 01:07 | RADIOLOGY REPORT ---
EXAMINATION: XR WRIST, LEFT CLINICAL INFORMATION: Fall with left wrist pain COMPARISON: None TECHNIQUE: PA, lateral, and oblique views of the left wrist. FINDINGS: No fracture or dislocation. The carpal rows are aligned. Slight widening at the scapholunate interval. Prominent cyst formation in the lunate. Chondrocalcinosis at the TFCC. Degenerative changes of the distal radioulnar joint. Advanced degenerative changes of the triscaphe joint and first carpometacarpal joint with narrowing, sclerosis, and osteophyte formation. Mild diffuse soft tissue swelling. IMPRESSION: No acute fracture or malalignment. Degenerative changes. Chondrocalcinosis.
[2017-11-01] MEDS ORDERED: MIRALAX119 GM PO (07:58)
[2017-11-01] MEDS ORDERED: DAILY VALUE1 EACH PO (07:59)
[2017-11-01] MEDS ORDERED: POTASSIUM CHLO20 ME2 PO (08:00)
[2017-11-01] MEDS ORDERED: PROBIOTIC1 EACH PO (08:00)
[2017-11-01] MEDS ORDERED: VITAMIN B-121000 MC3 PO (08:01)
[2017-11-01] MEDS ORDERED: VITAMIN D31000 UNI2 PO (08:06)
[2017-11-01] MEDS ORDERED: B-12 DUAL SP5000 MCG PO (08:06)
[2017-11-01] MEDS ORDERED: FOLIC ACID1 M1 PO (08:08)
[2017-11-01] MEDS ORDERED: CLARITIN10 M1 PO (08:08)
[2017-11-01] MEDS ORDERED: MELATONIN3 M4 PO (08:09)
[2017-11-01] MEDS ORDERED: FERROUS SULFAT325 M3 PO (08:10)
[2017-11-01] MEDS ORDERED: OCUVITE LUTEIN1 EAC1 PO (08:12)
--- NOTE | 2017-11-01 08:17 | History & Physical ---
Shantel Garcia MD 11/01/17 0816: General Information and [facility] MD Statement: I have seen and personally examined GODWIN GOMEZ and documented this H&P. The patient is a 86 year old F who presented with a patient stated chief complaint of SYNCOPE Source of Information: patient, family, old records History of Present Illness: This is an 86-year-old female with a past medical history significant for hypertension, hyperlipidemia, A. fib on Eliquis status post ablation and pacemaker with breakthrough A. fib, aortic stenosis status post TAVR, systolic CHF, sleep apnea on CPAP, GERD, CKD stage III, hysterectomy in 1989 that comes to us status post syncope yesterday evening. The patient is accompanied by her daughter and son whom she was visiting from [place] who give much of the history as the patient does not remember the actual incident. Apparently last night at around 8:00 PM the patient told her son and daughter that she was about to go to bed. She went upstairs and around 9:00 PM her son and daughter heard a thud upstairs and rushed up to find their mother facedown on the ground and unresponsive. She slowly came to and stated that she could not remember what happened directly before the fall. What she did remember was that she was in bed reading and then got up to go to the bathroom to brush her teeth but that is all. When the patient was found, she was confused and did not respond to attempts at reorientation. Her glasses were found pushed into her face and had created a hematoma on the left side. She had injured her wrist as well. The son and daughter did not witness any evidence of a seizure or any loss of bowel or bladder control. They deny noticing any focal area of weakness. Nothing like this has happened to the patient before where she did not remember a fall. The last time she fell was in rehab in 2016. She was there status post Adelina and fell back when she attempted to sit in a chair fracturing her left femur. Following this she had surgical reinforcement of the hip. Currently, the hip is healed and she has no complaints pertaining to movement on that side. The patient does have osteoarthritis and usually ambulates with a cane. Her plan is to go back to [place] in December. 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 While she is here in [place], her son and daughter work and there are times where nobody' s home. The patient does not have any visiting nurses. She does not drive. She does not use any oxygen at home, only CPAP for sleep apnea. At the time of interview, the patient denies any focal weakness, headache, chest pain, shortness of breath, abdominal pain, diarrhea. She does admit to some constipation that is chronic. She denies any prior recent confusion or dysuria. She does note that she became nauseous and dizzy when she was laying in her hospital bed 1 hour before interview and attempted to get up to go to the bathroom. The patient has seen Dr. Bejarano, mechatronics technologist before. The patient was hospitalized in [place] off and on between April and August 2015 first for pneumonia and then for A. fib on amiodarone which was ultimately stopped when the patient had an ablation procedure. In May she had a transcatheter aortic valve replacement and following this, was found to have episodes of bradycardia with pacemaker placement. Around this time she is also found to have a pericardial effusion requiring pericardial window. It was at this time in rehab that she fell and broke her hip. In December of that year she was found to be tachycardic and her metoprolol dose was increased to 50 mg twice daily from 25 mg twice daily. After this she was found to have congestive heart failure exacerbation in September 2016 she was given Lasix and had an echo which was found to be minimally abnormal. She has had on and off episodes of A. fib since then have been captured on her recorder. As per Dr. Bejarano today, the patient has been in A. fib for about 4 months. The patient denies any smoking, alcohol, drug use. Allergies/Medications Allergies: Coded Allergies: Sulfa (Sulfonamide Antibiotics) (Severe, SWELLING 10/03/16) diphenhydramine (From BENADRYL) (Severe, MAKES CRAZY, HALLUCINATION 10/09/16) hydromorphone (From DILAUDID) (Severe, CONFUSION 10/09/16) morphine (Severe, SYNCOPE 10/03/16) oxycodone (From PERCOCET) (Severe, EXTREME VOMITING 10/09/16) JOSE Inhibitors (UNKNOWN PER PT 10/09/16) ARB-Angiotensin Receptor Antagonist (SWELLING 10/09/16) Home Med list Apixaban (Eliquis) 2.5 MG TABLET 1 TAB PO BID BLOOD THINNER (Reported) Aspirin (Aspirin*) 81 MG TAB.CHEW 1 TAB PO QPM HEART HEALTH (Reported) Cholecalciferol (Vitamin D3) 1,000 UNIT TABLET 1 TAB PO BID VITAMIN SUPPORT ( Reported) Cyanocobalamin (Vitamin B-12) (B-12 Dual Spectrum) 5,000 MCG TAB.IR.ER 1 TAB PO DAILY VITAMIN SUPPORT (Reported) Docusate Sodium (Stool Softener) 250 MG CAPSULE 1 TAB PO BID STOOL SOFTENER ( Reported) Ferrous Sulfate 325 MG (65 MG IRON) TABLET 1 TAB PO Q72 IRON, VITAMIN ( Reported) Folic Acid 1 MG TABLET 1 TAB PO QPM VITAMIN SUPPORT (Reported) Lactobacillus Acidophilus (Probiotic) 10 BILLION CELL CAPSULE 1 CAP PO DAILY GI (Reported) Loratadine (Claritin) 10 MG TABLET 1 TAB PO DAILY ALLERGIES (Reported) Lutein/Zeaxanthin (Ocuvite Lutein 25-5 MG Softgel) 25 MG-5 MG CAPSULE 1 TAB PO QPM EYE (Reported) Melatonin 3 MG TABLET 1 TAB PO QPM SLEEP (Reported) Multivitamin (Daily Value) 1 EACH TABLET 1 TAB PO DAILY VITAMIN SUPPORT ( Reported) Nifedipine (Nifedipine ER) 60 MG TAB.ER.24 1 TAB PO DAILY HEART (Reported) Omeprazole 40 MG CAPSULE.DR 1 CAP PO BID ACID REFLUX Polyethylene Glycol 3350 (Miralax) 17 GRAM/DOSE POWDER 17 GM PO BID CONSTIPATION (Reported) mix with water, juice, soda, coffee or tea Potassium Chloride 20 MEQ TAB.ER.PRT 1 TAB PO DAILY SUPPLEMENT (Reported) Spironolactone (Aldactone) 25 MG TABLET 1 TAB PO DAILY WATER RETENTION ( Reported) Temazepam 15 MG CAPSULE 1 CAP PO QPM SLEEP (Reported) Compliance With Home Meds: GOOD Past History Travel History Traveled to [place] past 21 day No Medical History Neurological: dizziness, vertigo EENT: allergies, hearing loss, CATARACTS 2014 Cardiovascular: AFIB, aortic stenosis, hypertension, systolic CHF, pacemaker sleep apnea PERICARDITIS WITH WINDOW TAVR - BOVINE Respiratory: obstructive sleep apnea Gastrointestinal: GERD, DIVERTICUL MECKELS Hepatic: NONE Renal: CKD III - Musculoskeletal: L3/l4/l5 fusion Psychiatric: NONE Endocrine: "Parathyroid" - sestamibi scan pending "VIT D" "b12" Blood Disorders: NONE Cancer(s): NONE CORROSION CONTROL TECHNICIAN/Reproductive: "hysterectomy 1989" History of MRSA: No History of VRE: No History of CDIFF: No Surgical History Surgical History: appendectomy, hysterectomy, avr, pacemaker Diverticular surgery (08/2016), Femoral screw (2015), Back surgery Past Family/Social History Family History Relations & Conditions if any Family history was reviewed; no changes noted. Psychosocial History Services at Home: None Smoking Status: Never Smoked ETOH Use: denies use Illicit Drug Use: denies illicit drug use Review of Systems Review of Systems Constitutional: Reports: weakness. Cardiovascular: Reports: no symptoms. Respiratory: Reports: no symptoms. GI: Reports: no symptoms. Genitourinary: Reports: no symptoms. Musculoskeletal: Reports: no symptoms. Skin: Reports: no symptoms. Neurological/Psychological: Reports: see HPI. Hematologic/Endocrine: Reports: bruising. Exam & Diagnostic Data Last 24 Hrs of Vital Signs/I&O Vital Signs Date Time Temp Pulse Resp B/P B/P Pulse O2 O2 Flow FiO2 Mean Ox Delivery Rate 11/01 1400 97.6 69 20 148/80 98 Room Air 11/01 0932 97.6 75 18 132/96 97 Room Air Room Air 11/01 0931 75 150/90 11/01 0630 97.9 69 16 172/90 98 Room Air 11/01 0236 188/100 11/01 0030 98.0 69 18 192/80 94 Room Air 10/31 2230 97.8 82 18 206/94 96 Room Air Intake & Output 11/01 1600 /08 0800 08 0000 Intake Total 600 Output Total 350 Balance 250 Intake, IV 150 Intake, Oral 450 Number 1 Bowel Movements Output, Urine 350 Patient 135 lb 135 lb Weight Weight Reported by Patient Measurement Method Physical Exam General Appearance Alert, Oriented X3, Cooperative, No Acute Distress Skin No Rashes, No Breakdown, LEFT SUBSTANTIAL FACIAL BRUISING MOSTLY PERIORBITAL Skin Temp/Moisture Exam: Warm/Dry Sepsis Skin Exam (color): Normal for Ethnicity HEENT Atraumatic, PERRLA, EOMI, Mucous Membr. moist/pink Cardiovascular Regular Rate, Normal S1, Normal S2, No Murmurs Lungs Clear to Auscultation, Normal Air Movement Abdomen Normal Bowel Sounds, Soft, No Tenderness Neurological Normal Speech, Strength at 5/5 X4 Ext, Normal Tone, Sensation Intact, Cranial Nerves 3-12 NL, Reflexes 2+ Extremities No Clubbing, No Cyanosis, No Edema, Normal Pulses Vascular Normal Pulses, Pulses Symmetrical Last 24 Hrs of Labs/Luis Manuel: Laboratory Tests 11/01/17 0003: Anion Gap 10, Estimated GFR > 60, BUN/Creatinine Ratio 25.7 H, Glucose 103 H, Calcium 9.8, Total Bilirubin 0.6, AST 31, ALT 26, Alkaline Phosphatase 72, Troponin I < 0.01, Total Protein 7.2, Albumin 4.2, Globulin 3.0, Albumin/ Globulin Ratio 1.4 10/31/17 2350: Urine Color STRAW, Urine Clarity CLEAR, Urine pH 7.0, Ur Specific Mabie 1.010, Urine Protein NEG, Urine Ketones NEG, Urine Nitrite NEG, Urine Bilirubin NEG, Urine Urobilinogen 0.2, Ur Leukocyte Esterase NEG, Ur Microscopic SEDIMENT EXAMINED, Urine RBC 1-3, Urine WBC RARE, Ur Epithelial Cells OCCAS, Urine Bacteria RARE H, Urine Hemoglobin TRACE-INTACT, Urine Glucose NEG 10/31/17 2300: CBC w Diff NO MAN DIFF REQ, RBC 4.70, MCV 93.6, MCH 31.7 H, MCHC 33.9, RDW 14.4 , MPV 10.2, Gran % 71.1, Lymphocytes % 18.4 L, Monocytes % 9.0, Eosinophils % 1.1, Basophils % 0.4, Absolute Granulocytes 6.7 H, Absolute Lymphocytes 1.7, Absolute Monocytes 0.8 H, Absolute Eosinophils 0.1, Absolute Basophils 0 Assessment/Plan Assessment: This is an 86-year-old female with a past medical history significant for hypertension, hyperlipidemia, A. fib on Eliquis status post ablation and pacemaker with breakthrough A. fib, aortic stenosis status post TAVR, systolic CHF, sleep apnea on CPAP, GERD, CKD stage III, primary hyperparathyroidism, hysterectomy in 1989 that comes to us status post syncope yesterday evening. Patient has a long cardiac history including ablation, transcatheter aortic valve replacement, pacemaker but has been in A. fib for about 4 months now. There is no evidence that the patient had a seizure during her fall today but was unresponsive to reorientation directly after and confused, does not remember the incident at this point. The patient has experienced some dizziness on rising out of her chair recently but states that she usually pauses to reorient herself. The patient lives currently with her family in the area for the summer and is at times unattended. During the rest of the year she lives in [place] where she is also unattended for most of the day. In the ED, vitals were temperature 97.8, heart rate 82, respiratory rate 18, blood pressure 206/94 on admission which decreased to 132/96. In the ED, she was given Tylenol and Ultram for pain. Labs were normal. The CT head and cervical spine showed soft tissue swelling but no fracture or acute pathology intracranially. A wrist x-ray showed no fracture or malalignment. EKG showed a rate of 71, A. fib, evidence of LVH and was drastically change from her prior EKG which was a rate of 72 showing right bundle branch block. Between the time of the 2 EKGs was when the patient had a pacemaker placed. Patient was found to be orthostatic positive. Assessment -Syncope of questionable cardiac origin versus vasovagal versus carotid stenosis versus metabolic -Periorbital hematoma and wrist injury status post fall -Past medical history of hypertension, CHF, GERD Plan -Start patient on normal saline at a low rate of 50 cc/h she was found to be orthostatic positive but we do not have any recent echocardiogram to assess her heart failure -Full admission for hematoma, unsteady gait, syncope to telemetry -Cardiac consult with her mechatronics technologist Dr. Bejarano -Carotid Doppler -Echocardiogram -TSHR -Trend cardiac enzymes and EKGs at 330 and 930 -Physical therapy consult -Tylenol for pain -Continue patient's home medications nifedipine, potassium, omeprazole, aspirin, temazepam, iron every 3 days as it causes constipation, folic acid, B12 -Medication for constipation -Hold Eliquis secondary to patient's large facial hematoma -As per cardiology, hold patient's spironolactone and sotalol Patient is DNR/DNI Regular diet DVT prophylaxis with Alps, currently holding Eliquis. As Ranked By This Provider Problem List: 1. Syncope Core Measures/Misc (12/11) Acute Coronary Syndrome ACS Diagnosis: No Congestive Heart Failure Congestive Heart Failure Diagnosis No Cerebrovascular Accident CVA/TIA Diagnosis: No VTE (View Protocol) VTE Risk Factors Acute Medical Illness No Mechanical VTE Prophylaxis d/t N/A MechProphylax Ordered No VTE Pharm Prophylaxis d/t Other Sepsis (View protocol) Sepsis Present: No If YES complete Sepsis Event Note If YES complete Sepsis Event Note Resident Review Statement Resident Statement: examined this patient, discussed with family, reviewed EMR data (avail), discussed with nursing Agustin GARVEYArsenioderrick 11/01/17 1311: Core Measures/Misc (12/11) Sepsis (View protocol) If YES complete Sepsis Event Note If YES complete Sepsis Event Note Attending MD Review Statement Attending Statement Attending MD Statement: examined this patient, discuss w/resident/PA/ACUTE CARE NURSING ASSISTANT, agreed w/resident/PA/ACUTE CARE NURSING ASSISTANT, reviewed EMR data (avail) Attending Assessment/Plan: 86F PMH chronic atrial fibrillation status post failed ablation on Elliquis, severe aortic stenosis with TAVR in May 2015 complicated with bradycardia resulting in pacemaker placement (on 06/24/2015), also complicated with pericardial effusion requiring pericardial window, HTN, HFrEF, primary parathyroidism presenting with syncopal episode and fall. Patient was in her usual state of health last night and was found face down on the floor by family. She awoke quickly after and had no memory of the event. She does not recall falling or syncopizing, and cannot recall any symptoms prior. She only had facial pain upon waking and coming to the hospital. She denies headache, vision changes, lightheadedness, vertigo, chest pain, palpitations, SOB, abdominal pain , diarrhea, dysuria. She has a large eccyhmoses on the left side of her face and her left eye is swollen shut. CT head and maxillofacial were negative for fracture or bleed. EKG shows atrial fibrillation. Labs reviewed. She was orthostatic positive this morning. 1. Syncope and collapse 2. Left facial hematoma 3. Severe aortic stenosis s/p TAVR Plan - Admit to telemetry - Serial cardiac enzymes and EKG - Echocardiogram - Monitor electrolytes - Check TSH - Cardiology consult - Home medications per cardiology - ALPS for DVT PPx - Hold Eliquis for now due to facial hematoma
[2017-11-01 09:31] VITALS: BP 150/90
[2017-11-01 09:32] VITALS: BP 132/96
--- NOTE | 2017-11-01 10:43 | Cons- Cardiology ---
General Information and HPI Consulting Request Date of Consult: 11/01/17 Requested By: Ashley Velez MD Reason for Consult: Syncope Source of Information: patient, old records Exam Limitations: no limitations History of Present Illness: Ebony Hernandez is a complicated 86-year-old female with a lot of medical issues. She was in and out of the hospital from April through August 2015 in [place]. She started out apparently with severe pneumonia, had atrial fibrillation for an unknown period of time and was on amiodarone for some time, but this was discontinued. She at some point had an atrial fibrillation ablation procedure also. She has underlying hypertension. She had severe aortic stenosis documented in April and May 2015, and eventually had a transcatheter aortic valve replacement, which was done around the end of May 2015. This apparently was complicated by bradycardia, and she had a pacemaker implanted on 06/24/2015. This is a [employer] Advisa, MRI conditional device. According to the device, she was in persistent atrial fibrillation throughout much of June, but then subsequently she has been in sinus rhythm with minimal atrial fibrillation. Her TAVR was apparently complicated also by pericardial and/or pleural effusions, and she had pericardial window, according to her daughter with residual wound in the subxiphoid area, She also fell and broke her hip after her TAVR and had that repaired in July 2015. At the current time, she remains on Eliquis low dose given for her previous atrial fibrillation. She is no longer on amiodarone. She is on nifedipine for hypertension, spironolactone, and metoprolol. Ebony was doing well until 01/09/2016 when she presented to the emergency room complaining of palpitations and rapid heart beat. Her EKG showed tachycardia with a rate of 111; the underlying mechanism is uncertain, possibly an atrial tachycardia or an atypical atrial flutter. According to her device which I interrogated she shows a spike of atrial fibrillation at that time, so this was likely an atrial arrhythmia. She was advised to double up on her metoprolol to 50 mg twice a day. Her chest x-ray did not show any congestive heart failure at that time. She was doing well until 10/03/2016 when she was admitted to [facility] as an observation patient for atypical chest pain. She had a negative cardiac evaluation at that time. She, however, was readmitted from 10/10/2016 through as a full admission. At that time, she had a cough and shortness of breath and had some congestive heart failure. This may have been precipitated by a few-hour episode of atrial fibrillation she had the day before she was admitted. She was discharged after a few days on Lasix in addition to her other medications. She did have an echocardiogram on her first admission on 10/03/2016 which showed good left ventricular systolic function and a right ventricular systolic pressure of 45 mm Hg. The transcatheter aortic valve replacement looked very good. There was no aortic stenosis and no aortic regurgitation. She did not have abnormal cardiac enzymes on either admission. At the time of her last visit, Ebony had gotten stronger. She did not have any shortness of breath or edema. She had a couple of episodes of atrial fibrillation, at least one of which she was aware of, which was on 01/04/17. According to the pacemaker she had 1 episode on 01/03, which was probably overnight, lasting about 6 hours, and then another episode on 01/04 which lasted another 6 hours or so and that was the one she was aware of. She only had a couple of other very brief episodes between the last interrogation on 11/22 and Dec 2016. On the 01/04 episode she took a couple of metoprolol and finally she probably converted and she was feeling much better. She does get symptomatic with some of her episodes of atrial fibrillation, but not all of them. At the time of her last visit to me in December 2016 she was looking good and was going to go to [place] for the winter. I have not seen her since then in the office, as she returned to [place] only in August.. She apparently was doing well at her daughter's house, where she lives until last night when she had a sudden syncopal episode. She cannot explain what happened to her, she just remembers going to the bathroom to wash up for the evening and then found herself in bed where her daughter and her had picked her up, and she had severe bruising to the left side of her face. She has not had any recent palpitations , chest pain, shortness of breath. Her home medications according to my last office note include from a cardiac standpoint Eliquis, aspirin, nifedipine, Lasix, sotalol, Aldactone. Allergies/Medications Allergies: Coded Allergies: Sulfa (Sulfonamide Antibiotics) (Severe, SWELLING 10/03/16) diphenhydramine (From BENADRYL) (Severe, MAKES CRAZY, HALLUCINATION 10/09/16) hydromorphone (From DILAUDID) (Severe, CONFUSION 10/09/16) morphine (Severe, SYNCOPE 10/03/16) oxycodone (From PERCOCET) (Severe, EXTREME VOMITING 10/09/16) JOSE Inhibitors (UNKNOWN PER PT 10/09/16) ARB-Angiotensin Receptor Antagonist (SWELLING 10/09/16) Home Med List: Apixaban (Eliquis) 2.5 MG TABLET 1 TAB PO BID BLOOD THINNER (Reported) Aspirin (Aspirin*) 81 MG TAB.CHEW 1 TAB PO QPM HEART HEALTH (Reported) Cholecalciferol (Vitamin D3) 1,000 UNIT TABLET 1 TAB PO BID VITAMIN SUPPORT ( Reported) Cyanocobalamin (Vitamin B-12) (B-12 Dual Spectrum) 5,000 MCG TAB.IR.ER 1 TAB PO DAILY VITAMIN SUPPORT (Reported) Docusate Sodium (Stool Softener) 250 MG CAPSULE 1 TAB PO BID STOOL SOFTENER ( Reported) Ferrous Sulfate 325 MG (65 MG IRON) TABLET 1 TAB PO Q72 IRON, VITAMIN ( Reported) Folic Acid 1 MG TABLET 1 TAB PO QPM VITAMIN SUPPORT (Reported) Lactobacillus Acidophilus (Probiotic) 10 BILLION CELL CAPSULE 1 CAP PO DAILY GI (Reported) Loratadine (Claritin) 10 MG TABLET 1 TAB PO DAILY ALLERGIES (Reported) Lutein/Zeaxanthin (Ocuvite Lutein 25-5 MG Softgel) 25 MG-5 MG CAPSULE 1 TAB PO QPM EYE (Reported) Melatonin 3 MG TABLET 1 TAB PO QPM SLEEP (Reported) Multivitamin (Daily Value) 1 EACH TABLET 1 TAB PO DAILY VITAMIN SUPPORT ( Reported) Nifedipine (Nifedipine ER) 60 MG TAB.ER.24 1 TAB PO DAILY HEART (Reported) Omeprazole 40 MG CAPSULE.DR 1 CAP PO BID ACID REFLUX Polyethylene Glycol 3350 (Miralax) 17 GRAM/DOSE POWDER 17 GM PO BID CONSTIPATION (Reported) mix with water, juice, soda, coffee or tea Potassium Chloride 20 MEQ TAB.ER.PRT 1 TAB PO DAILY SUPPLEMENT (Reported) Spironolactone (Aldactone) 25 MG TABLET 1 TAB PO DAILY WATER RETENTION ( Reported) Temazepam 15 MG CAPSULE 1 CAP PO QPM SLEEP (Reported) Current Medications: Current Medications Sig/Amaury Start time Last Medication Dose Route Stop Time Status Admin Acetaminophen 975 MG ONCE ONE 11/01 0230 DC 11/01 PO 11/01 023 0233 Acetaminophen 0 .STK-MED ONE 11/01 022 DC PO Tramadol HCl 50 MG ONCE ONE 11/01 0230 DC PO 11/01 0231 Tramadol HCl 0 .STK-MED ONE 11/01 0222 DC PO Review of Systems Review of Systems: No other complaints Past History Travel History Traveled to [place] past 21 day No Medical History Blood Transfusion Hx: No Neurological: dizziness, vertigo EENT: allergies, hearing loss, CATARACTS 2014 Cardiovascular: AFIB, aortic stenosis, hypertension, systolic CHF, pacemaker sleep apnea PERICARDITIS WITH WINDOW TAVR - BOVINE Respiratory: obstructive sleep apnea Gastrointestinal: GERD, DIVERTICUL MECKELS Hepatic: NONE Renal: CKD III - Musculoskeletal: L3/l4/l5 fusion Psychiatric: NONE Endocrine: "Parathyroid" - sestamibi scan pending "VIT D" "b12" Blood Disorders: NONE Cancer(s): NONE 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 Home Services at Home: None Smoking Status: Never Smoked ETOH Use: denies use Illicit Drug Use: denies illicit drug use Exam & Diagnostic Data Vital Signs and I&O Vital Signs Date Time Temp Pulse Resp B/P B/P Pulse O2 O2 Flow FiO2 Mean Ox Delivery Rate 11/01 0832 97.6 75 18 132/96 97 Room Air Room Air 11/01 0931 75 150/90 11/01 0630 97.9 69 16 172/90 98 Room Air 11/01 0236 188/100 11/01 0030 98.0 69 18 192/80 94 Room Air 10/31 2230 97.8 82 18 206/94 96 Room Air Intake & Output 11/01 1600 11/01 0000 10/31 1600 10/31 0000 Intake Total Output Total Balance Patient 135 lb 135 lb Weight Weight Reported by Patient Measurement Method Physical Exam: Elderly woman alert and cooperative lying in bed HEENT exam severe bruising to the left side of her face and orbit Neck veins not distended Carotids normal Chest clear, pacemaker left chest wall, well-healed Heart regular rhythm, no murmurs Extremities no edema Neurologic grossly intact Labs/Luis Manuel Results: Laboratory Tests 11/01 10/31 0003 2350 Chemistry Sodium (137 - 145 mmol/L) 139 Potassium (3.5 - 5.1 mmol/L) 4.9 Chloride (98 - 107 mmol/L) 105 Carbon Dioxide (22 - 30 mmol/L) 24 Anion Gap (5 - 16) 10 BUN (7 - 17 mg/dL) 18 H Creatinine (0.5 - 1.0 mg/dL) 0.7 Estimated GFR (>60 ml/min) > 60 BUN/Creatinine Ratio (7 - 25 %) 25.7 H Glucose (65 - 99 mg/dL) 103 H Calcium (8.4 - 10.2 mg/dL) 9.8 Total Bilirubin (0.2 - 1.3 mg/dL) 0.6 AST (14 - 36 U/L) 31 ALT (9 - 52 U/L) 26 Alkaline Phosphatase (<127 U/L) 72 Troponin I (< 0.11 ng/ml) < 0.01 Total Protein (6.3 - 8.2 g/dL) 7.2 Albumin (3.5 - 5.0 g/dL) 4.2 Globulin (1.9 - 4.2 gm/dL) 3.0 Albumin/Globulin Ratio (1.1 - 2.2 %) 1.4 Urines Urine Color (YEL,AMB,STR) STRAW Urine Clarity (CLEAR) CLEAR Urine pH (5.0 - 8.0) 7.0 Ur Specific [place] (1.001 - 1.035) 1.010 Urine Protein (NEG,<30 MG/DL) NEG Urine Ketones (NEG) NEG Urine Nitrite (NEG) NEG Urine Bilirubin (NEG) NEG Urine Urobilinogen (0.1 - 1.0 EU/dl) 0.2 Ur Leukocyte Esterase (NEG) NEG Ur Microscopic SEDIMENT EXAMINED Urine RBC (0 - 5 /HPF) 1-3 Urine WBC (0 - 2 /HPF) RARE Ur Epithelial Cells (NONE,FEW) OCCAS Urine Bacteria (NEG/NONE) RARE H Urine Hemoglobin (NEG) TRACE-INTACT Urine Glucose (N MG/DL) NEG 10/31 2300 Hematology CBC w Diff NO MAN DIFF REQ WBC (4.8 - 10.8 /CUMM) 9.4 RBC (4.20 - 5.40 /CUMM) 4.70 Hgb (12.0 - 16.0 G/DL) 14.9 Hct (37 - 47 %) 44.0 MCV (81.0 - 99.0 FL) 93.6 MCH (27.0 - 31.0 PG) 31.7 H MCHC (33.0 - 37.0 G/DL) 33.9 RDW (11.5 - 14.5 %) 14.4 Plt Count (130 - 400 /CUMM) 185 MPV (7.4 - 10.4 FL) 10.2 Gran % (42.2 - 75.2 %) 71.1 Lymphocytes % (20.5 - 51.1 %) 18.4 L Monocytes % (1.7 - 9.3 %) 9.0 Eosinophils % (0 - 5 %) 1.1 Basophils % (0.0 - 2.0 %) 0.4 Absolute Granulocytes (1.4 - 6.5 /CUMM) 6.7 H Absolute Lymphocytes (1.2 - 3.4 /CUMM) 1.7 Absolute Monocytes (0.10 - 0.60 /CUMM) 0.8 H Absolute Eosinophils (0.0 - 0.7 /CUMM) 0.1 Absolute Basophils (0.0 - 0.2 /CUMM) 0 Diagnostic Data EKG Results EKG shows regular rhythm with interventricular conduction delay possibly paced, probably underlying atrial fibrillation. CXR Results Not done Other Results Pacemaker interrogation reveals she has been in atrial fibrillation since about June and is mostly ventricular paced at this time. Assessment/Plan Assessment/Plan Mrs. Hernandez is an 86-year-old female who had a sudden syncopal episode yesterday. She has had in the past paroxysmal atrial fibrillation but appears to be in permanent atrial fibrillation for at least the past 4 months according to the pacemaker log. However she has mostly ventricular paced. There has been no ventricular tachycardia documented by the pacemaker. The etiology of her syncopal episode therefore is unclear and likely not arrhythmic. I agree with the plan of echocardiogram, monitoring, and carotid ultrasound, although that is not likely to be diagnostic. I would put her back on most of her prehospital meds, although I would hold diuretics for now and I would not give her sotalol, as she is now in atrial fibrillation. This may have been stopped already in [place] by her physicians there as it did not appear on her med list. Consult Acknowledgment - Thank you for your consult request.
--- NOTE | 2017-11-01 13:13 | Admission Certification ---
Admission Certification Certification Statement - As attending physician, I certify that at the time of - admission, based on clinical presentation, severity of - symptoms, need for further diagnostic testing and - therapeutic interventions, and risk of adverse outcomes - without in-hospital treatment, in my clinical assessment, - this patient requires an acute hospital stay for a minimum - of two nights or longer. I have also considered psychsocial - factors such as support system, advanced age, financial - issues, cognitive issues, and failed out-patient treatments, - past re-admission history, safety of patient, and lack of - compliance as applicable. Specific rationale supporting this admission is: Unexplained syncope and collapse with history of TAVR and facial injuries
[2017-11-01 14:00] VITALS: BP 148/80
--- NOTE | 2017-11-01 16:41 | ULTRASOUND REPORT ---
EXAMINATION: DUPLEX BILATERAL CAROTID ULTRASOUND CLINICAL INFORMATION: This is an 86-year-old female with history of hypertension. COMPARISON: None. TECHNIQUE: Real-time ultrasound and Doppler techniques (integrating B-mode 2D vascular images, Doppler spectral analysis and color flow Doppler imaging) were utilized to interrogate the extracranial carotid and vertebral arteries bilaterally. The degree of stenosis determined by criteria similar to NASCET. FINDINGS: Right side: 1. Minimal amount of heterogeneous plaque is seen in the ECA/ICA region. 2. The common carotid artery velocity is 36 cm/s. 3. The internal carotid artery velocities are 33 cm/s systolic and 9 cm/s diastolic. 4. The external carotid artery velocity is 79 cm/s. Left side: 1. Minimal amount of heterogeneous plaque is seen in the ECA/ICA region. 2. The common carotid artery velocity is 40 cm/s. 3. The internal carotid artery velocities are 82 cm/s systolic and 27 cm/s diastolic. 4. The external carotid artery velocity is 45 cm/s. ADDITIONAL FINDINGS: 1. The vertebral arteries show antegrade flow. IMPRESSION: 1. RIGHT: Minimal, nonhemodynamically significant stenosis of the proximal right internal carotid artery corresponding to a 0-49% stenosis by velocity criteria. 2. LEFT: Minimal, nonhemodynamically significant stenosis of the proximal left internal carotid artery corresponding to a 0-49% stenosis by velocity criteria. 3. No evidence for hemodynamically significant stenosis in the external carotid arteries.
[2017-11-01 21:59] VITALS: BP 140/80
[2017-11-02 06:55] VITALS: BP 148/80
[2017-11-02 08:04] LABS: ABSOLUTE BASOPHIL COUNT 0 /CUMM (0.0-0.2); ABSOLUTE EOSINOPHIL COUNT 0.1 /CUMM (0.0-0.7); ABSOLUTE GRANULOCYTE CT 5.6 /CUMM (1.4-6.5); ABSOLUTE LYMPH COUNT 1.1 /CUMM (1.2-3.4); ABSOLUTE MONOCYTE COUNT 0.7 /CUMM (0.10-0.60); BASOPHIL % 0.2 % (0.0-2.0); EOSINOPHIL % 1.7 % (0-5); GRANULOCYTE % 74.1 % (42.2-75.2); HEMATOCRIT 40.4 % (37-47); MEAN CORPUSCULAR HGB 32.1 PG (27.0-31.0); MEAN CORPUSCULAR HGB CONC 34.1 G/DL (33.0-37.0); MEAN CORPUSCULAR VOLUME 94.1 FL (81.0-99.0); MEAN PLATELET VOLUME 10.3 FL (7.4-10.4); PLATELET COUNT 156 /CUMM (130-400); RBC DISTRIBUTION WIDTH 14.4 % (11.5-14.5); RED BLOOD CELL CT 4.29 /CUMM (4.20-5.40); WHITE BLOOD CELL COUNT 7.6 /CUMM (4.8-10.8)
--- NOTE | 2017-11-02 08:53 | ECHOCARDIOGRAM REPORT ---
GODWIN GOMEZ Age: 86 : 1930 Gender: F Exam Date: 11/01/2017 19:34 Exam Location: 1 [address] Ht (in): 61 Wt (lb): 135 BSA: 1.64 BP: 132 / 96 Ordering Physician: Shantel Garcia MD Referring Physician: Jake Bejarano MD Chief, SoC Technologist: Cristy Duron [facility] Room Number: 182 Indications: Presyncope/Syncope Rhythm: Atrial fibrillation Technical Quality: FINDINGS Left Ventricle Normal size left ventricle. Left ventricular wall thickness at upper limits of normal. Normal left ventricular ejection fraction visually estimated at 60 %. There is hypo-to akinesis of the distal interventricular septum and apex. Right Ventricle Normal right ventricular size and function. Catheter/pacemaker wire in the right ventricular cavity. Right Atrium Normal right atrial size. Catheter/pacemaker wire in the right atrial appendage. Left Atrium Mild left atrial dilatation. Mitral Valve Mild thickening/calcification of the mitral valve leaflets. Mild mitral regurgitation. Aortic Valve There is a transcatheter aortic valve replacement within the aortic root. The leaflets are not well seen. No aortic stenosis. No aortic regurgitation. Tricuspid Valve Structurally normal tricuspid valve. [id number] tricuspid regurgitation. Right ventricular systolic pressure estimated to be elevated at 35-40 mmHg. Pulmonic Valve Pulmonic valve not well visualized, grossly normal. Trace pulmonic regurgitation. Pericardium Normal pericardium without effusion. No pleural effusion. Great Vessels Normal aortic root dimension. The aortic arch and great vessels are not well seen. CONCLUSIONS Left ventricular wall thickness at upper limits of normal. There is hypo-to akinesis of the distal interventricular septum and apex. Normal left ventricular ejection fraction visually estimated at 60 %. Catheter/pacemaker wire in the right ventricular cavity. Catheter/pacemaker wire in the right atrial appendage. Mild left atrial dilatation. Mild thickening/calcification of the mitral valve leaflets. Mild mitral regurgitation. There is a transcatheter aortic valve replacement within the aortic root. The leaflets are not well seen. No aortic stenosis. No aortic regurgitation. Right ventricular systolic pressure estimated to be elevated at 35- 40 mmHg. Jake Bejarano M.D. (Electronically Signed) Final Date: 02 November 2017 08:53 MEASUREMENTS (Male / Female) Normal Values 2D ECHO LV Diastolic Diameter PLAX 4.4 cm 4.2 - 5.9 / 3.9 - 5.3 cm LV Systolic Diameter PLAX 2.4 cm 2.1 - 4.0 cm LV Fractional Shortening PLAX 45.5 % 25 - 46 % LV Ejection Fraction 2D Teich 77.0 % IVS Diastolic Thickness 1.1 cm LVPW Diastolic Thickness 1.1 cm LV Relative Wall Thickness 0.5 RV Internal Dim ED PLAX 2.8 cm 1.9 - 3.8 cm Aortic Root Diameter 3.1 cm LA Systolic Diameter LX 3.1 cm 3.0 - 4.0 / 2.7 - 3.8 cm LA Volume 47.0 cm 18 - 58 / 22 - 52 cm DOPPLER AV Peak Velocity 168.0 cm/s AV Peak Gradient 11.3 mmHg AV Mean Velocity 116.0 cm/s AV Mean Gradient 6.0 mmHg AV Velocity Time Integral 31.3 cm LVOT Peak Velocity 45.4 cm/s LVOT Peak Gradient 0.8 mmHg LVOT Mean Velocity 34.8 cm/s LVOT Mean Gradient 1.0 mmHg LVOT Velocity Time Integral 10.4 cm MV Peak Velocity 118.0 cm/s MV Peak Gradient 5.6 mmHg MV Mean Velocity 54.6 cm/s MV Mean Gradient 2.0 mmHg Mitral E Point Velocity 88.4 cm/s MV PHT Velocity 127.0 cm/s MV Deceleration Sawyer 720.0 cm/s MV Pressure Half Time 52.9 ms MV Area PHT 4.2 cm MV Deceleration Time 254.0 ms TR Peak Velocity 294.0 cm/s TR Peak Gradient 34.6 mmHg Right Atrial Pressure 5.0 mmHg Pulmonary Artery Systolic Pressure 39.6 mmHg Right Ventricular Systolic Pressure 39.6 mmHg PV Peak Velocity 64.1 cm/s PV Peak Gradient 1.6 mmHg PV Mean Velocity 45.4 cm/s PV Mean Gradient 1.0 mmHg PV Velocity Time Integral 11.1 cm LV E' Lateral Velocity 8.1 cm/s Mitral E to LV E' Lateral Ratio 10.9 LV E' Septal Velocity 7.2 cm/s Mitral E to LV E' Septal Ratio 12.3
--- NOTE | 2017-11-02 09:43 | PN- Cardiology ---
Subjective Subjective: The patient is feeling better. The swelling on her orbit is improved. She remains in paced rhythm on the monitor. Her echo showed good LV systolic function with some minor wall motion abnormality at the apex. This is probably related to pacing although I cannot rule out a minor Takotsubo type picture. The TAVR valve is working well. Her carotids were negative. There have been no obvious arrhythmias on the monitor and her pacemaker was working well when interrogated. Objective Vital Signs and I&Os Vital Signs Date Time Temp Pulse Resp B/P B/P Pulse O2 O2 Flow FiO2 Mean Ox Delivery Rate 11/03 0751 69 148/80 11/02 0655 98.0 69 18 148/80 99 Nasal Cannula 11/01 2258 Nasal 2.0L Cannula 11/01 2159 98.4 72 18 140/80 95 Room Air 11/01 2100 Room Air 11/01 1400 97.6 69 20 148/80 98 Room Air Intake & Output 11/02 1600 11/02 0800 11/02 0000 11/01 1600 11/01 0800 11/01 0000 Intake Total 500 200 600 Output Total 1050 350 Balance 500 -850 250 Intake, IV 400 100 150 Intake, Oral 100 100 450 Number 1 1 Bowel Movements Output, Urine 1050 350 Patient 141 lb 135 lb 135 lb Weight Weight Bed scale Reported by Patient Measurement Method Physical Exam: She is awake and alert and cooperative HEENT exam reveals resolving bruising on the entire left side of her face and orbit Chest is clear Heart regular rhythm soft systolic murmur at the base Extremities no edema Current Medications: Current Medications Sig/Amaury Start time Last Medication Dose Route Stop Time Status Admin Acetaminophen 650 MG Q6PRN PRN 11/01 1045 AC 11/01 PO 2027 Apixaban 2.5 MG BID 11/01 1431 DC PO Aspirin 81 MG QPM 11/01 2100 AC 11/01 PO 2028 Cholecalciferol 1,000 IU BID 11/01 1431 AC 11/02 PO 08 Cyanocobalamin 1,000 MCG DAILY 11/01 1432 AC 11/02 PO 0851 Ferrous Sulfate 325 MG Q3D 11/01 1445 AC 11/01 PO 1713 Folic Acid 1 MG QPM 11/01 2100 AC PO Folic Acid 1 MG DAILY 11/01 1046 DC 11/01 PO 1210 Lactobacillus 1 CAP DAILY 11/01 1433 AC 11/02 Acidophilus PO 0851 Melatonin 3 MG QPM 11/01 2100 AC 11/01 PO 2028 Multivitamins 1 TAB DAILY 11/01 1045 AC 11/02 PO 0851 Nifedipine 60 MG DAILY 11/01 1434 AC 11/02 PO 0851 Omeprazole 40 MG DAILY AC 11/01 1434 AC 11/02 PO 0610 Potassium Chloride 20 MEQ DAILY 11/01 1434 DC PO Senna/Docusate Sodium 2 TAB DAILY 11/01 1432 AC 11/02 PO 0851 Sodium Chloride 1,000 ML .Q20H 11/01 1045 AC 11/02 IV 0852 Temazepam 15 MG QPM 11/01 2100 AC 11/01 PO 2027 Results Last 48 Hrs of Labs/Mics: Laboratory Tests 11/02/17 0615: Anion Gap 7, Estimated GFR > 60, BUN/Creatinine Ratio 27.1 H, CBC w Diff NO MAN DIFF REQ, RBC 4.29, MCV 94.1, MCH 32.1 H, MCHC 34.1, RDW 14.4, MPV 10.3, Gran % 74.1, Lymphocytes % 14.8 L, Monocytes % 9.2, Eosinophils % 1.7, Basophils % 0.2 , Absolute Granulocytes 5.6, Absolute Lymphocytes 1.1 L, Absolute Monocytes 0.7 H, Absolute Eosinophils 0.1, Absolute Basophils 0 11/01/17 2128: Troponin I 0.02 11/01/17 1558: Troponin I 0.02 11/01/17 0003: Anion Gap 10, Estimated GFR > 60, BUN/Creatinine Ratio 25.7 H, Glucose 103 H, Calcium 9.8, Total Bilirubin 0.6, AST 31, ALT 26, Alkaline Phosphatase 72, Troponin I < 0.01, Total Protein 7.2, Albumin 4.2, Globulin 3.0, Albumin/ Globulin Ratio 1.4, TSH &T3 &Free T4 Intrp 1.820 10/31/17 2350: Urine Color STRAW, Urine Clarity CLEAR, Urine pH 7.0, Ur Specific [place] 1.010, Urine Protein NEG, Urine Ketones NEG, Urine Nitrite NEG, Urine Bilirubin NEG, Urine Urobilinogen 0.2, Ur Leukocyte Esterase NEG, Ur Microscopic SEDIMENT EXAMINED, Urine RBC 1-3, Urine WBC RARE, Ur Epithelial Cells OCCAS, Urine Bacteria RARE H, Urine Hemoglobin TRACE-INTACT, Urine Glucose NEG 10/31/17 2300: CBC w Diff NO MAN DIFF REQ, RBC 4.70, MCV 93.6, MCH 31.7 H, MCHC 33.9, RDW 14.4 , MPV 10.2, Gran % 71.1, Lymphocytes % 18.4 L, Monocytes % 9.0, Eosinophils % 1.1, Basophils % 0.4, Absolute Granulocytes 6.7 H, Absolute Lymphocytes 1.7, Absolute Monocytes 0.8 H, Absolute Eosinophils 0.1, Absolute Basophils 0 Recent Imaging Studies: CONCLUSIONS Left ventricular wall thickness at upper limits of normal. There is hypo-to akinesis of the distal interventricular septum and apex. Normal left ventricular ejection fraction visually estimated at 60 %. Catheter/pacemaker wire in the right ventricular cavity. Catheter/pacemaker wire in the right atrial appendage. Mild left atrial dilatation. Mild thickening/calcification of the mitral valve leaflets. Mild mitral regurgitation. There is a transcatheter aortic valve replacement within the aortic root. The leaflets are not well seen. No aortic stenosis. No aortic regurgitation. Right ventricular systolic pressure estimated to be elevated at 35- 40 mmHg. Jake Bejarano M.D. (Electronically Signed) Final Date: 02 November 2017 08:53 Assessment/Plan Assessment/Plan The patient is improved. There is still no obvious etiology for her sudden syncopal episode. It is possible that this was a postural event. A seizure is possible althought the daughter did not observe any seizure activity. It is less likely that it was a rhythmic in nature. Her rhythm is stable at this time. She states she was ambulatory with physical therapy and did okay. As noted her echo was suggestive of a small takotsubo abnormality which I will follow-up with a another echo in a few weeks. She has been in atrial fibrillation for the past 4 months or so but is anticoagulated for this. For completeness I would obtain a chest x-ray, which apparently was not done on admission. The patient is concerned about any damage to left eye. I told her and daughter they should see an opthalmologist [facility] as outpatient. Continue telemetry? Yes
--- NOTE | 2017-11-02 10:18 | PN- Housestaff ---
Radha GARVEY,Shantel 11/02/17 1018: Subjective Follow-up For: -Syncope of questionable cardiac origin versus vasovagal versus carotid stenosis versus metabolic -Periorbital hematoma and wrist injury status post fall -Past medical history of hypertension, CHF, GERD Subjective: Patient feels better this morning. She is now able to open her left eye, continues to have severe bruising over the left side of her face. Overnight, patient had stable vitals but is requiring 2 L of oxygen which she normally does not take at home. The patient was found to have T-wave inversions new on her second EKG last night. She was seen by Dr. Bejarano who was not concerned and troponins were negative. Physical therapy walk the patient today and she states that when she first got up she felt a bit dizzy but was able to stabilize herself and felt better during the walk. The patient had orthostatics done today which only showed a 10 mmHg difference in systolic blood pressure today in standing and laying down. The patient states that she has left eye blurriness compared to the right side in the setting of macular degeneration and previous cataract surgery. Review of Systems Constitutional: Reports: no symptoms. EENTM: Reports: blurred vision. Cardiovascular: Reports: no symptoms. Respiratory: Reports: no symptoms. Gastrointestinal: Reports: no symptoms. Genitourinary: Reports: no symptoms. Musculoskeletal: Reports: no symptoms. Skin: Reports: no symptoms. Neurological/Psychological: Reports: see HPI. Hematologic/Endocrine: Reports: bruising. Objective Last 24 Hrs of Vital Signs/I&O Vital Signs Date Time Temp Pulse Resp B/P B/P Pulse O2 O2 Flow FiO2 Mean Ox Delivery Rate 11/02 0851 69 148/80 11/02 0655 98.0 69 18 148/80 99 Nasal Cannula 11/01 2258 Nasal 2.0L Cannula 11/01 2159 98.4 72 18 140/80 95 Room Air 11/01 2100 Room Air Intake & Output 11/02 1600 11/02 0800 11/02 0000 Intake Total 830 500 200 Output Total 1050 Balance 830 500 -850 Intake, IV 350 400 100 Intake, Oral 480 100 100 Number 1 1 Bowel Movements Output, Urine 1050 Patient 141 lb Weight Weight Bed scale Measurement Method Physical Exam General Appearance: Alert, Oriented X3, Cooperative, No Acute Distress Skin: extensive left face hematoma with edema around patient's left eye, finally able to open eyes. Skin Temp/Moisture Exam: Warm/Dry Sepsis Skin Exam (color): Normal for Ethnicity HEENT: Atraumatic, PERRLA, EOMI, patient's left side of face has large hematoma. surrounding her eye it is edematous. patient's pupils are equal and reactive. She has no pain in the eye. She states that she has mild blurriness when looking at the light. She is able to move her eyes uninhibited. Visual field test showed some limitation of her left burt secondary to swelling of the surrounding tissues. Visual acuity test showed less acute vision in the left eye compared to the right eye and both eyes. Neck: Supple, No JVD Cardiovascular: Regular Rate, Normal S1, Normal S2, No Murmurs Lungs: Clear to Auscultation, Normal Air Movement Abdomen: Normal Bowel Sounds, Soft, No Tenderness Neurological: Normal Speech Extremities: No Clubbing, No Cyanosis, No Edema Vascular: Normal Pulses, Pulses Symmetrical Current Medications: Current Medications Sig/Amaury Start time Last Medication Dose Route Stop Time Status Admin Acetaminophen 650 MG Q6PRN PRN 11/01 1045 AC 11/02 PO 1026 Apixaban 2.5 MG BID 11/01 1431 DC PO Aspirin 81 MG QPM 11/01 2100 AC 11/01 PO 2029 Cholecalciferol 1,000 IU BID 11/01 1431 AC 11/02 PO 0851 Cyanocobalamin 1,000 MCG DAILY 11/01 1432 AC 11/02 PO 0851 Ferrous Sulfate 325 MG Q3D 11/01 1445 AC 11/01 PO 1713 Folic Acid 1 MG QPM 11/01 2100 AC PO Folic Acid 1 MG DAILY 11/01 1046 DC 11/01 PO 1210 Lactobacillus 1 CAP DAILY 11/01 1433 AC 11/02 Acidophilus PO 0851 Melatonin 3 MG QPM 11/01 2100 AC 11/01 PO 2029 Multivitamins 1 TAB DAILY 11/01 1045 AC 11/02 PO 0851 Nifedipine 60 MG DAILY 11/01 1434 AC 11/02 PO 0851 Omeprazole 40 MG DAILY AC 11/01 1434 AC 11/02 PO 0610 Polyethylene Glycol 17 GM BID 11/02 1020 AC 11/02 PO 1124 Potassium Chloride 20 MEQ DAILY 11/01 1434 DC PO Senna/Docusate Sodium 2 TAB DAILY 11/01 1432 AC 11/02 PO 0851 Sodium Chloride 1,000 ML .Q20H 11/01 1045 AC 11/02 IV 0852 Temazepam 15 MG QPM 11/01 2099 AC 11/01 PO 2027 Last 24 Hrs of Lab/Luis Manuel Results Last 24 Hrs of Labs/Mics: Laboratory Tests 11/02/17 0615: Anion Gap 7, Estimated GFR > 60, BUN/Creatinine Ratio 27.1 H, CBC w Diff NO MAN DIFF REQ, RBC 4.29, MCV 94.1, MCH 32.1 H, MCHC 34.1, RDW 14.4, MPV 10.3, Gran % 74.1, Lymphocytes % 14.8 L, Monocytes % 9.2, Eosinophils % 1.7, Basophils % 0.2 , Absolute Granulocytes 5.6, Absolute Lymphocytes 1.1 L, Absolute Monocytes 0.7 H, Absolute Eosinophils 0.1, Absolute Basophils 0 11/01/178: Troponin I 0.02 11/01/17 1558: Troponin I 0.02 Assessment/Plan Assessment: This is an 86-year-old female with a past medical history significant for hypertension, hyperlipidemia, A. fib on Eliquis status post ablation and pacemaker with breakthrough A. fib, aortic stenosis status post TAVR, systolic CHF, sleep apnea on CPAP, GERD, CKD stage III, primary hyperparathyroidism, hysterectomy in 1989 that comes to us status post syncope yesterday evening. Patient has a long cardiac history including ablation, transcatheter aortic valve replacement, pacemaker but has been in A. fib for about 4 months now. There is no evidence that the patient had a seizure during her fall today but was unresponsive to reorientation directly after and confused, does not remember the incident at this point. The patient has experienced some dizziness on rising out of her chair recently but states that she usually pauses to reorient herself. The patient lives currently with her family in the area for the summer and is at times unattended. During the rest of the year she lives in [place] where she is also unattended for most of the day. In the ED, vitals were temperature 97.8, heart rate 82, respiratory rate 18, blood pressure 206/94 on admission which decreased to 132/96. In the ED, she was given Tylenol and Ultram for pain. Labs were normal. The CT head and cervical spine showed soft tissue swelling but no fracture or acute pathology intracranially. A wrist x-ray showed no fracture or malalignment. EKG showed a rate of 71, A. fib, evidence of LVH and was drastically change from her prior EKG which was a rate of 72 showing right bundle branch block. Between the time of the 2 EKGs was when the patient had a pacemaker placed. Patient was found to be orthostatic positive. Assessment -Syncope of questionable cardiac origin versus vasovagal versus carotid stenosis versus metabolic: At this point the most likely answer is vasovagal especially since patient is orthostatic positive -Periorbital hematoma and wrist injury status post fall with some left eye blurriness -Past medical history of hypertension, CHF, GERD Plan -Repeat troponins were all negative and repeat EKG did show new T-wave inversions in lateral leads but as per cardiology, this is likely benign as patient is paced. -Today we will continue patient on normal saline at a low rate of 50 cc/h she was found to be orthostatic positive recently. We are attributing patient's fall to most likely a vasovagal episode in the setting of dehydration from not drinking enough (see apparently patient's tobacco stripper limited her to 50 ounces of water a day and the heat of it being summer). Today patient is less orthostatic. We will plan to stop the fluids after one more bag and to encourage patient to take fluids orally. Patient had an echocardiogram done while here which was fairly normal with an EF of 60% but did show some minor apical wall motion abnormality either related to pacing or to takotsubo's stress cardiomyopathy. -Cardiac consult with her filler shredder Dr. Bejarano, as per him, patient will need follow-up echocardiogram in a few weeks to evaluate for continued apical wall motion abnormalities. Of note the AV leaflets were not well seen on echocardiogram and patient has had transcatheter aortic valve replacement. -Carotid Doppler was normal -TSHR was normal -Physical therapy consult is suggesting home physical therapy the patient is amenable to short-term rehabilitation -Tylenol for pain as patient states that she does not like to take any other pain medications -Continue patient's home medications nifedipine, potassium, omeprazole, aspirin, temazepam, iron every 3 days as it causes constipation, folic acid, B12 -Medication for constipation given -Continue to hold Eliquis secondary to patient's large facial hematoma -As per cardiology, hold patient's spironolactone and sotalol -Also as per cardiology we will do a chest x-ray for completeness to rule out any other further causes for patient's syncopal episode. Note, the patient is requiring 2 L of oxygen and does not take oxygen at home. Patient is DNR/DNI Regular diet DVT prophylaxis with Alps, currently holding Eliquis. Problem List: 1. Syncope 2. Traumatic hematoma of face Pain Ratin Pain Location: Left face and left wrist Pain Goal: Pain 4 or less Pain Plan: [facility] Labs & Rationales: lizzy Velez MD,Ashley 11/02/17 1258: Attending MD Review Statement Attending Statement Attending MD Statement: examined this patient, discuss w/resident/PA/INSIDE SALES ADVERTISING EXECUTIVE, agreed w/resident/PA/INSIDE SALES ADVERTISING EXECUTIVE, reviewed EMR data (avail) Attending Assessment/Plan: 86F PMH chronic atrial fibrillation status post failed ablation on Elliquis, severe aortic stenosis with TAVR in May 2015 complicated with bradycardia resulting in pacemaker placement (on 06/24/2015), also complicated with pericardial effusion requiring pericardial window, HTN, HFrEF, primary parathyroidism presenting with syncopal episode and fall. Patient was in her usual state of health last night and was found face down on the floor by family. She awoke quickly after and had no memory of the event. She does not recall falling or syncopizing, and cannot recall any symptoms prior. She only had facial pain upon waking and coming to the hospital. She denies headache, vision changes, lightheadedness, vertigo, chest pain, palpitations, SOB, abdominal pain , diarrhea, dysuria. She has a large eccyhmoses on the left side of her face and her left eye is swollen shut. CT head and maxillofacial were negative for fracture or bleed. EKG shows atrial fibrillation. Labs reviewed. Patient looks and feels better. Her facial hematoma has receded slightly and she can now see out of her left eye. Her vision is intact in that eye. She is no longer orthostatic. Suspect her syncope and fall was a result of orthostasis and syncope, and not cardiac in origin. 1. Syncope and collapse 2. Left facial hematoma 3. Severe aortic stenosis s/p TAVR Plan - Continue on telemetry - Echocardiogram - Monitor electrolytes - Cardiology consult - Home medications per cardiology - ALPS for DVT PPx - Hold Eliquis for now due to facial hematoma - Will continue to work with PT and would benefit from further therapy before being discharged, if no improvement may require a short stay at rehab
[2017-11-02 15:23] VITALS: BP 124/72
[2017-11-02 22:13] VITALS: BP 150/74
--- NOTE | 2017-11-02 22:57 | RADIOLOGY REPORT ---
EXAMINATION: XR CHEST CLINICAL INFORMATION: Increasing O2 requirement. COMPARISON: Chest radiograph 10/09/[address] 10/10/2016. TECHNIQUE: 2 views of the chest were obtained. FINDINGS: Since the prior study, the previously detected left lower lobe patchy infiltrate has cleared. The heart remains enlarged. A TAVR stent/valve remains in place. Bipolar pacer remains in place in good condition. There is no evidence of CHF. No infiltrates, effusions or lung masses are seen. IMPRESSION: No acute intrathoracic disease. Clearing of previously detected left lower lobe infiltrate.
--- NOTE | 2017-11-03 00:28 | Patient Discharge Instructions ---
Discharge Instructions General Discharge Information You were seen/treated for: syncope Special Instructions: -please follow up with pcp in one week -please follow up with cardiology in one week. you will need a repeat echocardiogram in a few weeks. -please follow up with ophthamologist within one week Diet Continue normal diet: Yes Activity Full Activity/No Limits: Yes Acute Coronary Syndrome Inclusion Criteria At DC or during hospital stay patient has or had the following: ACS DIAGNOSIS No Discharge Core Measures Meds if any: Prescribed or Continued at Discharge Meds if any: NOT Prescribed or Continued at Discharge Congestive Heart Failure Inclusion Criteria At DC or during hospital stay patient has or had the following: CHF DIAGNOSIS No Discharge Core Measures Meds if any: Prescribed or Continued at Discharge Meds if any: NOT Prescribed or Continued at Discharge Cerebrovascular accident Inclusion Criteria At DC or during hospital stay patient has or had the following: CVA/TIA Diagnosis No Discharge Core Measures Meds if any: Prescribed or Continued at Discharge Meds if any: NOT Prescribed or Continued at Discharge Venous thromboembolism Inclusion Criteria VTE Diagnosis No VTE Type NONE VTE Confirmed by (Test) NONE Discharge Core Measures - Per Current guidelines, there needs to be overlap - treatment for the first 5 days of Warfarin therapy. - If discharged on Warfarin prior to 5 days of - overlap therapy, the patient will need to be - assessed for post discharge needs including - *Post discharge parental anticoagulation - *Warfarin and/or parental anticoagulation education - *Follow up date to check INR post discharge At least 5 days overlap therapy as Inpatient No Meds if any: Prescribed or Continued at Discharge Note: Overlap Therapy is Warfarin and Anticoagulant Meds if any: NOT Prescribed or Continued at Discharge
--- NOTE | 2017-11-03 00:28 | Discharge Summary ---
Visit Information Visit Dates Admission Date: 11/01/17 Discharge Date: 11/03/17 Hospital Course Course Attending Physician: Ashley Velez MD Primary Care Physician: Luis M GARVEY,Braulio Pete Hospital Course: This is an 86-year-old female with a past medical history significant for hypertension, hyperlipidemia, A. fib on Eliquis status post ablation and pacemaker with breakthrough A. fib, aortic stenosis status post TAVR, systolic CHF, sleep apnea on CPAP, GERD, CKD stage III, primary hyperparathyroidism, hysterectomy in 1989 that comes to us status post syncope yesterday evening. Patient has a long cardiac history including ablation, transcatheter aortic valve replacement, pacemaker but has been in A. fib for about 4 months now. There is no evidence that the patient had a seizure during her fall but was unresponsive to reorientation directly after and confused, does not remember the incident at this point. The patient has experienced some dizziness on rising out of her chair recently but states that she usually pauses to reorient herself. The patient lives currently with her family in the area for the summer and is at times unattended. During the rest of the year she lives in [place] where she is also unattended for most of the day. In the ED, vitals were temperature 97.8, heart rate 82, respiratory rate 18, blood pressure 206/94 on admission which decreased to 132/96. In the ED, she was given Tylenol and Ultram for pain. Labs were normal. The CT head and cervical spine showed soft tissue swelling but no fracture or acute pathology intracranially. A wrist x-ray showed no fracture or malalignment. EKG showed a rate of 71, A. fib, evidence of LVH and was drastically change from her prior EKG which was a rate of 72 showing right bundle branch block. Between the time of the 2 EKGs was when the patient had a pacemaker placed. Patient was found to be orthostatic positive. Assessment -Syncope of questionable cardiac origin versus vasovagal versus carotid stenosis versus metabolic: At this point the most likely answer is vasovagal especially since patient is orthostatic positive -Periorbital hematoma and wrist injury status post fall with some left eye blurriness -Past medical history of hypertension, CHF, GERD Hospital Course: Patient was admitted to telemetry and cardiology was consulted. She was found to be hypertensive so her home medications were started and blood pressure normalized quickly. We did EKG and troponins to rule out ACS. Repeat troponins were all negative but repeat EKG did show new T-wave inversions in lateral leads. Cardiology stated that this is likely benign as patient is paced. Patient was found to be orthostat positive so NS at a low rate (no recent echo) was started. Patient had an echocardiogram done which was fairly normal with an EF of 60% but did show some minor apical wall motion abnormality either related to pacing or to takotsubo's stress cardiomyopathy. Patient will need follow-up echocardiogram in a few weeks to evaluate for continued apical wall motion abnormalities. Of note the AV leaflets were not well seen on echocardiogram and patient has had transcatheter aortic valve replacement. Carotid Doppler was normal, TSHR was normal. We are attributing patient's fall to most likely a vasovagal episode in the setting of dehydration low PO fluid intake (apparently patient's docket specialist limited her to 50 ounces of water a day/the heat of it being summer, unclear as to why). The following day, patient is not orthostatic. We stopped the fluids and encouraged patient to take fluids orally. As per cardiology, we held spironolactone secondary to volume depletion. Patient was in afib so we held sotalol. Patient is not usually on home oxygen and is on CPAP for obstructive sleep apnea at night. However, she was requiring 2 L of oxygen throughout her stay so we did a chest x-ray which showed no acute intrathoracic disease. Patient's oxygen was tapered to room air and she was satting well on discharge. For patient's large hematoma we held Eliquis. The patient and her daughter were both concerned about her left eye. She was not able to open her eye on admission but the next day was able to. She noted some blurriness of vision so we consulted ophthalmology by phone. We did visual field testing which showed reduced visual field in that left eye as well as some decreased acuity on Snellen visual test. As per Dr. Shaw, he will see the patient as soon as she can come in, in his office. He does not believe there is anything emergent to do. The patient does not have pain in the eye and the eye on inspection was red but the pupil was not damaged. Pupil did appear smaller than other eye but still did accomodate. She notes that her left pupil is smaller than her right at baseline secondary to macular degeneration surgery. However, she and her daughter are concerned so the plan is to be discharged from here and go directly to [facility] for a check up by an ophthamologist. Physical therapy consult is suggesting home physical therapy the patient is amenable to short-term rehabilitation. Tylenol was given for pain as patient states that she does not like to take any other pain medications. Continued patient's home medications nifedipine, potassium, omeprazole, aspirin, temazepam , iron every 3 days as it causes constipation, folic acid, B12. Medication for constipation given Allergies: Coded Allergies: Sulfa (Sulfonamide Antibiotics) (Severe, SWELLING 10/03/16) diphenhydramine (From BENADRYL) (Severe, MAKES CRAZY, HALLUCINATION 10/09/16) hydromorphone (From DILAUDID) (Severe, CONFUSION 10/09/16) morphine (Severe, SYNCOPE 10/03/16) oxycodone (From PERCOCET) (Severe, EXTREME VOMITING 10/09/16) JOSE Inhibitors (UNKNOWN PER PT 10/09/16) ARB-Angiotensin Receptor Antagonist (SWELLING 10/09/16) Disposition Summary Disposition Principal Diagnosis: syncope Additional Diagnosis: left face hematoma Discharge Disposition: SNF Discharge Instructions General Discharge Information Code Status: Do Not Resucitate/Intubat Patient's Diet: regular Patient's Activity: as tolerated Follow-Up Instructions/Appts: -please follow up with pcp in one week -please follow up with cardiology in one week. you will need a repeat echocardiogram in a few weeks. -please follow up with ophthamologist within one week Medications at Discharge Discharge Medications: Continue taking these medications: Nifedipine (Nifedipine ER) 60 MG TAB.ER.24 1 Tablet ORAL DAILY Comments: NOT GIVEN Spironolactone (Aldactone) 25 MG TABLET 1 Tablet ORAL DAILY Comments: NOT GIVEN Apixaban (Eliquis) 2.5 MG TABLET 1 Tablet ORAL TWICE DAILY Comments: NOT GIVEN Temazepam (Temazepam) 15 MG CAPSULE 1 Capsule ORAL Every night Comments: Last Taken:11/03/17 Time:830 PM Docusate Sodium (Stool Softener) 250 MG CAPSULE 1 Tablet ORAL TWICE DAILY Comments: Last Taken: NOT GIVEN THIS ADMISSION Time: Aspirin (Aspirin*) 81 MG TAB.CHEW 1 Tablet ORAL Every night Comments: Last Taken: 11/03/17 Time: 830 PM Omeprazole (Omeprazole) 40 MG CAPSULE.DR 1 Capsule ORAL TWICE DAILY Qty = 60 Comments: Last Taken:11/03/17 Time:0630 AM Polyethylene Glycol 3350 (Miralax) 17 GRAM/DOSE POWDER 17 Gram ORAL TWICE DAILY Instructions: mix with water, juice, soda, coffee or tea Comments: Last Taken:11/03/17 Time:0830 AM Multivitamin (Daily Value) 1 EACH TABLET 1 Tablet ORAL DAILY Comments: Last Taken:11/03/17 Time:0830 AM Potassium Chloride (Potassium Chloride) 20 MEQ TAB.ER.PRT 1 Tablet ORAL DAILY Comments: NOT GIVEN Lactobacillus Acidophilus (Probiotic) 10 BILLION CELL CAPSULE 1 Capsule ORAL DAILY Comments: Last Taken:11/03/17 Time:0830 AM Cyanocobalamin (Vitamin B-12) (B-12 Dual Spectrum) 5,000 MCG TAB.IR.ER 1 Tablet ORAL DAILY Comments: Last Taken:11/03/17 Time:0830 AM Cholecalciferol (Vitamin D3) 1,000 UNIT TABLET 1 Tablet ORAL TWICE DAILY Comments: Last Taken:11/03/17 Time:0830 AM Loratadine (Claritin) 10 MG TABLET 1 Tablet ORAL DAILY Comments: NOT GIVEN Folic Acid (Folic Acid) 1 MG TABLET 1 Tablet ORAL Every night Comments: Last Taken:11/02/17 Time:2037 Melatonin (Melatonin) 3 MG TABLET 1 Tablet ORAL Every night Comments: Last Taken:11/02/17 Time:830 PM Ferrous Sulfate (Ferrous Sulfate) 325 MG (65 MG IRON) TABLET 1 Tablet ORAL EVERY 72 HOURS (EVERY 3 DAYS) Comments: Last Taken:11/01/17 Time:515 PM Lutein/Zeaxanthin (Ocuvite Lutein 25-5 MG Softgel) 25 MG-5 MG CAPSULE 1 Tablet ORAL Every night Comments: NOT GIVEN Copies To: Luis M GARVEY,Braulio Pete; Darci GARVEY,Jake Rivera
[2017-11-03 06:40] VITALS: BP 138/78
--- NOTE | 2017-11-03 07:24 | PN- Housestaff ---
Radha GARVEY,Shantel 11/03/17 0723: Subjective Follow-up For: SYNCOPE FACIAL HEMATOMA Subjective: Patient seen and examined. She states that she is feeling well other than the pain in her left face and swelling. She continues to have some blurring of the left eye but on exam the eye is largely unchanged from yesterday, the pupil is smaller but still accommodates. This pupil is smaller at baseline as the patient has had surgery for macular degeneration. The patient plans to leave today and go directly to her eye doctor for evaluation. She denies any pain in the eye. The patient denies dizziness and her vitals are stable overnight. Review of Systems Constitutional: Reports: no symptoms. EENTM: Reports: blurred vision. Cardiovascular: Reports: no symptoms. Respiratory: Reports: no symptoms. Gastrointestinal: Reports: no symptoms. Musculoskeletal: Reports: no symptoms. Skin: Reports: no symptoms. Neurological/Psychological: Reports: no symptoms. Objective Last 24 Hrs of Vital Signs/I&O Vital Signs Date Time Temp Pulse Resp B/P B/P Pulse O2 O2 Flow FiO2 Mean Ox Delivery Rate 11/03 0834 71 138/78 11/03 0640 97.3 71 20 138/78 99 Room Air 11/02 2213 97.3 74 26 150/74 96 11/02 2118 Room Air 11/02 1523 98.3 69 18 124/72 96 Nasal Cannula Intake & Output 11/03 1600 11/03 0800 11/03 0000 Intake Total 530 465 Output Total Balance 530 465 Intake, IV 250 225 Intake, Oral 280 240 Number 1 Bowel Movements Patient 134 lb Weight Physical Exam General Appearance: Alert, Oriented X3, Cooperative, No Acute Distress Skin: No Rashes Skin Temp/Moisture Exam: Warm/Dry Sepsis Skin Exam (color): Normal for Ethnicity HEENT: EOMI, LARGE LEFT FACIAL HEMATOMA, EDEMATOUS. EYE IS RED, UNCHANGED FROM YESTERDAY. PUPIL IS SMALLER THAN THE LEFT BUT ACCOMODATES. SHE NOTES THAT THIS IS NORMAL FOR HER SHE HAS HAD PREVIOUS SURGERY FOR MACULAR DEGENERATION. Neck: Supple, No JVD Cardiovascular: Regular Rate, Normal S1, Normal S2, No Murmurs Lungs: Clear to Auscultation, Normal Air Movement Abdomen: Normal Bowel Sounds, Soft, No Tenderness Neurological: Normal Speech, Strength at 5/5 X4 Ext, Normal Tone, Sensation Intact, Cranial Nerves 3-12 NL Extremities: No Clubbing, No Cyanosis, No Edema Current Medications: Current Medications Sig/Amaury Start time Last Medication Dose Route Stop Time Status Admin Acetaminophen 650 MG Q6PRN PRN 11/01 1045 AC 11/02 PO 2126 Aspirin 81 MG QPM 11/01 2100 AC 11/02 PO 203 Cholecalciferol 1,000 IU BID 11/01 1431 AC 11/03 PO 0834 Cyanocobalamin 1,000 MCG DAILY 11/01 1432 AC 11/03 PO 0834 Ferrous Sulfate 325 MG Q3D 11/01 1445 AC 11/01 PO 1713 Folic Acid 1 MG QPM 11/01 2100 AC 11/02 PO 2038 Lactobacillus 1 CAP DAILY 11/01 1433 AC 11/03 Acidophilus PO 0834 Melatonin 3 MG QPM 11/01 2100 AC 11/02 PO 2038 Multivitamins 1 TAB DAILY 11/01 1045 AC 11/03 PO 0834 Nifedipine 60 MG DAILY 11/01 1434 AC 11/03 PO 0834 Omeprazole 40 MG DAILY AC 11/01 1434 AC 11/03 PO 0637 Polyethylene Glycol 17 GM BID 11/02 1020 AC 11/03 PO 0834 Senna/Docusate Sodium 2 TAB DAILY 11/01 1432 AC 11/03 PO 0834 Sodium Chloride 1,000 ML .Q20H 11/01 1045 DC 11/02 IV 11/02 2100 52 Temazepam 15 MG QPM 11/01 2100 AC 11/02 PO 2037 Assessment/Plan Assessment: This is an 86-year-old female with a past medical history significant for hypertension, hyperlipidemia, A. fib on Eliquis status post ablation and pacemaker with breakthrough A. fib, aortic stenosis status post TAVR, systolic CHF, sleep apnea on CPAP, GERD, CKD stage III, primary hyperparathyroidism, hysterectomy in 1989 that comes to us status post syncope yesterday evening. Patient has a long cardiac history including ablation, transcatheter aortic valve replacement, pacemaker but has been in A. fib for about 4 months now. There is no evidence that the patient had a seizure during her fall today but was unresponsive to reorientation directly after and confused, does not remember the incident at this point. The patient has experienced some dizziness on rising out of her chair recently but states that she usually pauses to reorient herself. The patient lives currently with her family in the area for the summer and is at times unattended. During the rest of the year she lives in [place] where she is also unattended for most of the day. In the ED, vitals were temperature 97.8, heart rate 82, respiratory rate 18, blood pressure 206/94 on admission which decreased to 132/96. In the ED, she was given Tylenol and Ultram for pain. Labs were normal. The CT head and cervical spine showed soft tissue swelling but no fracture or acute pathology intracranially. A wrist x-ray showed no fracture or malalignment. EKG showed a rate of 71, A. fib, evidence of LVH and was drastically change from her prior EKG which was a rate of 72 showing right bundle branch block. Between the time of the 2 EKGs was when the patient had a pacemaker placed. Patient was found to be orthostatic positive. Assessment -Syncope of questionable cardiac origin versus vasovagal versus carotid stenosis versus metabolic: At this point the most likely answer is vasovagal especially since patient is orthostatic positive -Periorbital hematoma and wrist injury status post fall with some left eye blurriness -Past medical history of hypertension, CHF, GERD Plan -Repeat troponins were all negative and repeat EKG did show new T-wave inversions in lateral leads but as per cardiology, this is likely benign as patient is paced. -Yesterday we continued patient on normal saline at a low rate of 50 cc/h she was found to be orthostatic positive recently. We are attributing patient's fall to most likely a vasovagal episode in the setting of dehydration from not drinking enough (see apparently patient's family day care worker limited her to 50 ounces of water a day and the heat of it being summer). Patient is no longer orthostatic. We have stopped the fluids and have encourage oral intake. Patient had an echocardiogram done while here which was fairly normal with an EF of 60% but did show some minor apical wall motion abnormality either related to pacing or to takotsubo's stress cardiomyopathy. -Cardiac consult with her biotech production specialist Dr. Bejarano, as per him, patient will need follow-up echocardiogram in a few weeks to evaluate for continued apical wall motion abnormalities. Of note the AV leaflets were not well seen on echocardiogram and patient has had transcatheter aortic valve replacement. -Carotid Doppler was normal -TSHR was normal -As per cardiology, we will continue spironolactone and eliquis, sotalol was apparently stopped by her [place] biotech production specialist. Patient continues to be in afib /aflutter. -Physical therapy consult is suggesting home physical therapy as well as occupational therapy. -Tylenol for pain as patient states that she does not like to take any other pain medications -Continue patient's home medications nifedipine, potassium, omeprazole, aspirin, temazepam, iron every 3 days as it causes constipation, folic acid, B12 -Medication for constipation given -Patient was requiring 2 L of oxygen and does not take oxygen at home. Chest x- ray which showed no pathology and patient is now on room air saturating well. Patient is DNR/DNI Regular diet DVT prophylaxis with Alps Problem List: 1. Traumatic hematoma of face 2. Syncope Pain Ratin Pain Location: FACE Pain Goal: Pain 4 or less Pain Plan: TYLENOL Tomorrow's Labs & Rationales: MOE Velez MD,Ashley 11/03/17 1113: Attending MD Review Statement Attending Statement Attending MD Statement: examined this patient, discuss w/resident/PA/[employer], agreed w/resident/PA/[employer], reviewed EMR data (avail) Attending Assessment/Plan: 86F PMH chronic atrial fibrillation status post failed ablation on Elliquis, severe aortic stenosis with TAVR in May 2015 complicated with bradycardia resulting in pacemaker placement (on 06/24/2015), also complicated with pericardial effusion requiring pericardial window, HTN, HFrEF, primary parathyroidism presenting with syncopal episode and fall. Patient was in her usual state of health last night and was found face down on the floor by family. She awoke quickly after and had no memory of the event. She does not recall falling or syncopizing, and cannot recall any symptoms prior. She only had facial pain upon waking and coming to the hospital. She denies headache, vision changes, lightheadedness, vertigo, chest pain, palpitations, SOB, abdominal pain , diarrhea, dysuria. She has a large eccyhmoses on the left side of her face and her left eye is swollen shut. CT head and maxillofacial were negative for fracture or bleed. EKG shows atrial fibrillation. Labs reviewed. Patient looks and feels better. Her facial hematoma has receded slightly and she can now see out of her left eye. Her vision is intact in that eye. Her left pupil is smaller than her right but this is her baseline following eye surgery. She is no longer orthostatic. Suspect her syncope and fall was a result of orthostasis and syncope, and not cardiac in origin. 1. Syncope and collapse 2. Left facial hematoma 3. Severe aortic stenosis s/p TAVR Plan - Stable for discharge - Outpatient cardiology follow up - Patient will go directly to an appoint at [facility] in [place], [place] right after discharge - Home medications per cardiology - Continue Toño
[2017-11-03 08:34] VITALS: BP 138/78
--- NOTE | 2017-11-03 09:43 | PN- Cardiology ---
Subjective Subjective: Patient is feeling well. Has an appointment with outside ophtalmology this afternoon. No acute events on monitoring. Objective Vital Signs and I&Os Vital Signs Date Time Temp Pulse Resp B/P B/P Pulse O2 O2 Flow FiO2 Mean Ox Delivery Rate 11/04 0734 71 138/78 11/03 0640 97.3 71 20 138/78 99 Room Air 11/02 2213 97.3 74 26 150/74 96 11/02 2118 Room Air 11/02 1523 98.3 69 18 124/72 96 Nasal Cannula Intake & Output 11/03 1600 11/03 0811/03 0000 11/02 1600 11/02 0811/02 0000 Intake Total 530 465 830 500 200 Output Total 1050 Balance 530 465 830 500 -850 Intake, IV 250 225 350 400 100 Intake, Oral 280 240 480 100 100 Number 1 1 1 Bowel Movements Output, Urine 1050 Patient 134 lb 141 lb Weight Weight Bed scale Measurement Method Physical Exam: She is awake and alert and cooperative HEENT exam reveals resolving bruising on the entire left side of her face and orbit Chest is clear Heart regular rhythm soft systolic murmur at the base Extremities no edema Current Medications: Current Medications Sig/Amaury Start time Last Medication Dose Route Stop Time Status Admin Acetaminophen 650 MG Q6PRN PRN 11/01 1045 AC 11/02 PO 2126 Aspirin 81 MG QPM 11/01 2100 AC 11/02 PO 203 Cholecalciferol 1,000 IU BID 11/01 1431 AC 11/03 PO 0834 Cyanocobalamin 1,000 MCG DAILY 11/01 1432 AC 11/03 PO 0834 Ferrous Sulfate 325 MG Q3D 11/01 1445 AC 11/01 PO 1713 Folic Acid 1 MG QPM 11/01 2100 AC 11/02 PO 2038 Lactobacillus 1 CAP DAILY 11/01 1433 AC 11/03 Acidophilus PO 0834 Melatonin 3 MG QPM 11/01 2100 AC 11/02 PO 203 Multivitamins 1 TAB DAILY 11/01 1045 AC 11/03 PO 0834 Nifedipine 60 MG DAILY 11/01 1434 AC 11/03 PO 0834 Omeprazole 40 MG DAILY AC 11/01 1434 AC 11/03 PO 0637 Polyethylene Glycol 17 GM BID 11/02 1020 AC 11/03 PO 0834 Senna/Docusate Sodium 2 TAB DAILY 11/01 1432 AC 11/03 PO 0834 Sodium Chloride 1,000 ML .Q20H 11/01 1045 DC 11/02 IV 11/02 Temazepam 15 MG QPM 11/01 2099 AC 11/02 PO 2037 Results Last 48 Hrs of Labs/Mics: Laboratory Tests 11/02/17 0615: Anion Gap 7, Estimated GFR > 60, BUN/Creatinine Ratio 27.1 H, CBC w Diff NO MAN DIFF REQ, RBC 4.29, MCV 94.1, MCH 32.1 H, MCHC 34.1, RDW 14.4, MPV 10.3, Gran % 74.1, Lymphocytes % 14.8 L, Monocytes % 9.2, Eosinophils % 1.7, Basophils % 0.2 , Absolute Granulocytes 5.6, Absolute Lymphocytes 1.1 L, Absolute Monocytes 0.7 H, Absolute Eosinophils 0.1, Absolute Basophils 0 11/01/17 2128: Troponin I 0.02 11/01/17 1558: Troponin I 0.02 Assessment/Plan Assessment/Plan syncopal episode without of unclear etiology. It is possible that this was a postural event. It is less likely that it was a rhythmic in nature. echo was suggestive of a small takotsubo abnormality. Dr Bejarano will follow-up patient with a another echo in a few weeks. Continue telemetry? Not applicable
== END 2017-11-03 12:04 | disposition home health service (06) | DRG 312 ==
LOC: ERH 22:25 → 1NO 11-01 06:45 → ERHI 11-01 06:45 → ENRESERV 11-01 07:42 → ENTRNSPT 11-01 08:42 → EDTRNSPTSTS 11-01 09:09 → 1NO 11-01 09:21 → CMPTRNSPT 11-01 09:33 → ENPENDDIS 11-03 10:54 → ENTRNSPT 11-03 11:54 → 1NO 11-03 12:04 → CMPTRNSPT 11-03 12:06
PROVIDERS: Internal Medicine; Student in an Organized Health Care Education/Training Program
DX: R55 Syncope and collapse (principal); I13.0 Hypertensive heart and chronic kidney disease with heart failure and stage 1 through stage 4 chronic kidney disease, or unspecified chronic kidney disease; I50.22 Chronic systolic (congestive) heart failure; S00.12XA Contusion of left eyelid and periocular area, initial encounter; I48.2 Chronic atrial fibrillation; Z79.01 Long term (current) use of anticoagulants; N18.3 Chronic kidney disease, stage 3 (moderate); K21.9 Gastro-esophageal reflux disease without esophagitis; E78.5 Hyperlipidemia, unspecified; G47.33 Obstructive sleep apnea (adult) (pediatric); Z90.710 Acquired absence of both cervix and uterus; W18.30XA Fall on same level, unspecified, initial encounter; Y92.003 Bedroom of unspecified non-institutional (private) residence as the place of occurrence of the external cause; Z88.5 Allergy status to narcotic agent; Z88.2 Allergy status to sulfonamides; Z88.8 Allergy status to other drugs, medicaments and biological substances; Z95.3 Presence of xenogenic heart valve; Z98.1 Arthrodesis status; Z95.0 Presence of cardiac pacemaker; Z66 Do not resuscitate; I35.0 Nonrheumatic aortic (valve) stenosis
CPT/HCPCS: 1NP; 36592; 71046; 73110-LT; 81001; 82436; 93005; 93010; 93306; 97110-GO; 97116-GO; 97161-GP; 97530-GO; J3490